=== PATIENT | female | born 1990 | race Caucasian/White ===

== ENCOUNTER → 2016-12-14 | Outpatient (CLI) | payer MEDICAID ==
--- NOTE | 2016-12-15 02:07 | CONS ---
DATE OF CONSULTATION: DATE OF : 1990 PRIMARY CARE PHYSICIAN: None PCP HISTORY: Ms. Thorne is a 26-year-old patient. She is para 2-0-0-2. She is 28 weeks . She is followed in our clinic, mainly by our nurse streetcar dispatcher. She presented today to the Labor and delivery, is complaining of dizziness and double vision and she denied any nausea or vomiting. She denied any headache and she denied any passing out or any seizure activity. The patient stated that she had similar attack in her 2nd and that is what attributed to that the baby is pressing on her back and her spinal cord and once the baby is moved, this was resolved. Today when she is admitted to Labor and delivery, her vital signs essentially normal, her blood pressure is normal, heart rate was category 1 and she has reactive NST. Her blood sugar is within normal limits. Her urinalysis is normal. During her stay in Labor and Delivery, she was able to move and go to the bathroom on her own without any problem. I examined the patient and her examination was normal grief and neurologic examination shows cranial nerves intact. that was essentially is normal that there is no loss of motor or sensory loss. The patient stated that she had some sort of a scratchy throat, but not really typical cold. This symptoms is either due to an inner ear infection or part of her problem, this could be evaluated. I gave the patient the option to stay in the hospital for observation tonight and we will evaluate her and Neurology consult in the morning or she can come to the office and we will evaluate her again in the office in the morning and we will seek other consult and possible any imaging if it is needed. The patient elected to go home and come to the office in the morning. YOLANDE / RASHIDA /[id number]
== END | disposition home or self-care (01) ==
LOC: MW.OBCHECK 15:58
PROVIDERS: ATTEND Obstetrics & Gynecology
DX: O99.89 Other specified diseases and conditions complicating pregnancy, childbirth and the puerperium (principal); R42 Dizziness and giddiness; Z3A.00 Weeks of gestation of pregnancy not specified
CPT/HCPCS: 81001; 82962

== ENCOUNTER → 2016-12-17 | Outpatient (CLI) | payer MEDICAID | LOC: MW.CHOBGYN 09:48 | PROVIDERS: ATTEND Obstetrics & Gynecology | DX: R42 Dizziness and giddiness (principal) | CPT/HCPCS: 36415; 84443; 85027 ==

== ENCOUNTER → 2017-01-29 | Outpatient (CLI) | payer MEDICAID | END | disposition home or self-care (01) | LOC: MW.CHOBGYN 09:37 | PROVIDERS: ATTEND Advanced Practice Midwife | DX: Z34.90 Encounter for supervision of normal pregnancy, unspecified, unspecified trimester (principal) | CPT/HCPCS: 87081 ==

== ENCOUNTER 2017-02-21 13:40 | Outpatient (CLI) | payer MEDICAID ==
--- NOTE | 2017-02-23 14:53 | US ---
EXAM DATE: 02/21/17 PATIENT'S AGE: 26 Patient: BALTAZAR PRIDE Facility: [place], [place] Site . Site : 1990 Study: US OB Pelvis [id number]/13/2017 3:26:55 PM Ordering Physician: Kimberlee Slaughter Final Report: INDICATION: Bleeding. Decreased movement. Gestational age of 39 weeks and 0 days by LMP. TECHNIQUE: Ultrasound OB pelvis. COMPARISON: October 07, 2016. FINDINGS: Sonographic imaging demonstrates a single living intrauterine gestation. Fetus demonstrates a regular cardiac rate of 147 beats per minute. Fetus has a cephalic orientation. Amniotic fluid volume appears normal with an HUSSEIN of 12.5 cm. Scores: movement = 2/2 tone = 2/2 HUSSEIN = 2/2 breathing = 0/2 IMPRESSION: Single living intrauterine with a biophysical profile of 6/8. Dictated by Deniz Damon MD @ 02/21/2017 3:32:43 PM Dictated by: Deniz Damon MD @ 02/21/2017 15:33:06 (Electronic Signature) Report Signed by Proxy. CELINA
== END 2017-02-21 18:18 | disposition home or self-care (01) ==
LOC: MW.OB 13:40 → MW.OBCHECK 13:40
PROVIDERS: ATTEND Obstetrics & Gynecology
DX: O36.8130 Decreased fetal movements, third trimester, not applicable or unspecified (principal); Z3A.39 39 weeks gestation of pregnancy; O46.93 Antepartum hemorrhage, unspecified, third trimester
CPT/HCPCS: 59025; 76819; 76819-26

== ENCOUNTER 2017-02-22 11:57 | Outpatient (CLI) | payer MEDICAID | END 2017-02-22 13:13 | disposition home or self-care (01) | LOC: MW.OBCHECK 11:57 → MW.OB 12:03 → MW.OBCHECK 13:13 | PROVIDERS: ATTEND Obstetrics & Gynecology | DX: O47.03 False labor before 37 completed weeks of gestation, third trimester (principal); O46.8X3 Other antepartum hemorrhage, third trimester | CPT/HCPCS: 59025 ==

== ENCOUNTER 2017-02-24 07:41 | Outpatient (CLI) | payer MEDICAID ==
[2017-02-24] MEDS ORDERED: Calcium Carbonate 500 MG Tab.Chew PO ONE (10:20)
[2017-02-24] MEDS ORDERED: Acetaminophen 500 MG Tab PO ONE (10:20)
[2017-02-24 10:53] LABS: CHLORIDE,CL 109 mmol/L (98-110); SODIUM,NA 136 mmol/L (136-146)
--- NOTE | 2017-02-24 13:37 | US ---
EXAMINATION: Transabdominal obstetric ultrasound HISTORY: Pain and right lower quadrant COMPARISON: 02/21/2017 TECHNIQUE: Grayscale, color Doppler, and M-mode images obtained transabdominally. FINDINGS: There is a single live intrauterine in the cephalic position. heart rate i s 144 bpm. Placenta is anterior and appears intact. The amniotic fluid index is 9.2. No sonographic abnormalities identified within the right lower quadrant. The appendix is not identified. The right ovary appears normal in size and appearance. IMPRESSION: 1. Single live intrauterine . 2. The appendix is not visualized.
--- NOTE | 2017-02-24 18:06 | HP ---
DATE OF : 1990 PRIMARY CARE PHYSICIAN: None PCP CHIEF COMPLAINT: Right lower quadrant and back pain. HISTORY OF PRESENT ILLNESS: This is a 26-year-old female. She is G4, P2-0-1-2. She presents to Labor and Delivery at 38 and 6/7th weeks' gestation. EDC of 03/04/2017, G4, P2-0-1-2, with a complaint of 1-day history of pain. She has some irregular contractions. She reports that she has lost her mucus plug. She has had no vaginal bleeding. She reports positive movement. She has noted diarrhea over the last 48 hours as well as some nausea and at least one episode of emesis. She denies fever or chills. See OB flow sheet for past history. PHYSICAL EXAMINATION: VITAL SIGNS: Temperature is 97.6, blood pressure is 126/83, heart rate is 101, respiratory rate of 16. Initially, she reported a pain of 7/10. The pain has decreased over 5 hours of observation. heart tones have been in the 140s reactive with moderate variability, accelerations present, with no decelerations. She has had some irregular contractions initially every 4 to 6 minutes now just occasional irritability. LABORATORY STUDIES: Urinalysis appears contaminated. She denies symptoms of UTI, however, the urine will be sent for culture. She has a normal white blood cell count. Normal CMP. Ultrasound reveals normal amniotic fluid. Normal growth. No evidence of appendicitis on ultrasound. ASSESSMENT AND PLAN: A 38 and 6/7th weeks intrauterine with low back pain and prodromal symptoms of labor without any cervical change management facilitator a 5-hour time. I did offer her Vistaril to help with sleep. She declines and I reviewed labor precautions as well as kick counts. She has an upcoming appointment in 2 days with her primary provider. If her contractions become more frequent, every 5 to 7 minutes for an hour, or if she has spontaneous rupture of membranes, she has worsening pain, fever, or chills, she will return. LIZZY FIELD /[id number]
== END 2017-02-24 13:58 | disposition home or self-care (01) ==
LOC: MW.OB 07:41 → MW.OBCHECK 07:41
PROVIDERS: ATTEND Obstetrics & Gynecology
DX: O99.89 Other specified diseases and conditions complicating pregnancy, childbirth and the puerperium (principal); R10.31 Right lower quadrant pain; M54.9 Dorsalgia, unspecified
CPT/HCPCS: 36415; 59025; 76815; 80053; 81001; 85025; 87086; A9270

== ENCOUNTER 2017-02-24 21:10 | Outpatient (CLI) | payer MEDICAID ==
[2017-02-24] MEDS ORDERED: hydrOXYzine Pamoate 25 MG Cap PO ONE (23:18)
== END 2017-02-24 23:35 | disposition home or self-care (01) ==
LOC: MW.OBCHECK 21:10 → MW.OB 21:11 → MW.OBCHECK 23:35
PROVIDERS: ATTEND Obstetrics & Gynecology
DX: O26.893 Other specified pregnancy related conditions, third trimester (principal); R10.2 Pelvic and perineal pain; Z88.0 Allergy status to penicillin
CPT/HCPCS: 59025; A9270

== ENCOUNTER 2017-02-25 08:51 | Inpatient (IN) | payer MEDICAID ==
[2017-02-25] MEDS ORDERED: Lidocaine 1% 50 ML MDV INJECT PRN (10:20)
[2017-02-25] MEDS: Lactated Ringers 1,000 ML IV SCH ×3 (10:20→17:05)
[2017-02-25] MEDS ORDERED: Methylergonovine 0.2 MG/1 ML Amp IM PRN (10:20)
[2017-02-25] MEDS ORDERED: Nalbuphine 10 MG/1 ML Vial IVPUSH PRN (10:20)
[2017-02-25] MEDS ORDERED: Water For Irrigation,Sterile 1,000 ML Container IRR PRN (10:20)
[2017-02-25] MEDS ORDERED: Sodium Chloride 0.9% 10 ML Syringe FLUSH PRN (10:20)
[2017-02-25] MEDS ORDERED: Misoprostol 200 MCG Tab PO PRN (10:20)
[2017-02-25] MEDS ORDERED: Sodium Chloride 0.9% 2.5 ML Syringe FLUSH PRN (10:20)
[2017-02-25] MEDS ORDERED: Carboprost Tromethamine 250 MCG/1 ML Amp IM PRN (10:20)
[2017-02-25] MEDS ORDERED: Butorphanol 1 MG/ML SDV IVPUSH PRN (10:20)
[2017-02-25] MEDS ORDERED: Oxytocin/Lactated Ringers 30 UNIT/500 ML BAG IV SCH ×2 (10:30→13:30)
[2017-02-25] MEDS ORDERED: Oxytocin/Lactated Ringers 20 UNIT/1,000 ML BAG IV SCH (13:30)
[2017-02-25] MEDS ORDERED: Ropivacaine 0.2% 2 MG/ML 20 ML SDV ONE (16:01)
[2017-02-25] MEDS ORDERED: Ropivacaine HCl/PF 100 ML ONE (16:01)
[2017-02-25] MEDS ORDERED: fentaNYL 100 MCG/2 ML SDV ONE (16:01)
--- NOTE | 2017-02-25 16:32 | PCM.PREANE ---
Preanesthetic Assessment - Anesthesia/Transfusion/Family Hx Anesthesia History: Prior Anesthesia Without Reaction Family History of Anesthesia Reaction: No Transfusion History: No Prior Transfusion(s) - Review of Systems Other: Reports: None - Physical Assessment Height: 5 ft 4.17 in Weight: 84.6 kg ASA Class: 2 Mental Status: Alert & Oriented x3 Airway Class: Mallampati = 1 Dentition: Reports: Normal Dentition Thyro-Mental Finger Breadths: 3 Mouth Opening Finger Breadths: 3 ROM/Head Extension: Full - Lab Values: Laboratory Last Values WBC 10.40 K/uL (4.0-11.0) 02/25/17 10:36 RBC 4.54 M/uL (4.30-5.90) 02/25/17 10:36 Hgb 13.6 g/dL (12.0-16.0) 02/25/17 10:36 Hct 39.5 % (36.0-46.0) 02/25/17 10:36 MCV 87.0 fL (80.0-98.0) 02/25/17 10:36 MCH 30.0 pg (27.0-32.0) 02/25/17 10:36 MCHC 34.4 g/dL (31.0-37.0) 02/25/17 10:36 RDW Std Deviation 45.6 fl (28.0-62.0) 02/25/17 10:36 RDW Coeff of Maynor 15 % (11.0-15.0) 02/25/17 10:36 Plt Count 213 K/uL (150-400) 02/25/17 10:36 MPV 10.30 fL (7.40-12.00) 02/25/17 10:36 Nucleated RBC % 0.0 /100WBC 02/25/17 10:36 Nucleated RBCs # 0 K/uL 02/25/17 10:36 Blood Type A POSITIVE 02/25/17 10:36 Antibody Screen NEGATIVE 02/25/17 10:36 - Allergies Allergies/Adverse Reactions: Allergies Allergy/AdvReac Type Severity Reaction Status Date / Time Penicillins Allergy Airway Verified 10/07/16 19:11 Tightness - Blood Blood Available: Yes Product(s) Available: PRBC - Acknowledgements Anesthesia Type Planned: Epidural Pt an Appropriate Candidate for the Planned Anesthesia: Yes Alternatives and Risks of Anesthesia Discussed w Pt/Guardian: Yes Pt/Guardian Understands and Agrees with Anesthesia Plan: Yes PreAnesthesia Questionnaire HEENT History: Reports: None Cardiovascular History: Reports: None Respiratory History: Reports: None Gastrointestinal History: Reports: None Genitourinary History: Reports: None [employer]PER CH[employer] CARE History: Reports: Endometriosis, Musculoskeletal History: Reports: None Neurological History: Reports: None Psychiatric History: Reports: Anxiety Endocrine/Metabolic History: Reports: None Hematologic History: Reports: None Immunologic History: Reports: None Oncologic (Cancer) History: Reports: None Dermatologic History: Reports: None - Infectious Disease History Infectious Disease History: Reports: None - Past Surgical History Head Surgeries/Procedures: Reports: None HEENT Surgical History: Reports: Adenoidectomy, Tonsillectomy Respiratory Surgical History: Reports: None GI Surgical History: Reports: None Female Surgical History: Reports: None Neurological Surgical History: Reports: None Oncologic Surgical History: Reports: None Dermatological Surgical History: Reports: None - SUBSTANCE USE Smoking Status *Q: Former Smoker Tobacco Use Within Last Twelve Months: No Recreational Drug Use History: No - HOME MEDS Home Medications: Home Meds Nitrofurantoin Monohyd/M-Cryst [Macrobid 100 mg Capsule] 100 mg PO BID #20 capsule 10/07/16 [Rx] - CURRENT (IN HOUSE) MEDS Current Meds: Current Medications Butorphanol Tartrate (Stadol) 1 mg IVPUSH Q1H PRN PRN Reason: Pain Carboprost Tromethamine (Hemabate Ds) 250 mcg IM ASDIRECTED PRN PRN Reason: Post Hemorrhage Lactated Ringer's (Ringers, Lactated) 1,000 mls @ 150 mls/hr IV ASDIRECTED IVONNE Last Admin: 02/25/17 11:30 Dose: 150 mls/hr Oxytocin/Lactated Ringer's (Pitocin In Lr 30 Units/500 Ml) 30 unit in 500 mls @ 2 mls/hr IV TITRATE IVONNE; 2 MUNITS/MIN PRN Reason: Protocol Last Titration: 02/25/17 16:28 Dose: 12 munits/min, 12 mls/hr Lidocaine HCl (Xylocaine 1%) 50 ml INJECT .ONCE PRN PRN Reason: Laceration repair Methylergonovine Maleate (Methergine) 0.2 mg IM ASDIRECTED PRN PRN Reason: Post Hemorrhage Misoprostol (Cytotec) 200 mcg PO .ONCE PRN PRN Reason: Post Hemorrhage Sodium Chloride (Saline Flush) 10 ml FLUSH ASDIRECTED PRN PRN Reason: Keep Vein Open Sodium Chloride (Saline Flush) 2.5 ml FLUSH ASDIRECTED PRN PRN Reason: Keep Vein Open Sterile Water (Sterile Water For Irrigation) 1,000 ml IRR ASDIRECTED PRN PRN Reason: delivery Discontinued Medications Fentanyl (Sublimaze) Confirm Administered Dose 200 mcg .ROUTE .STK-MED ONE Stop: 02/25/17 16:02 Oxytocin/Lactated Ringer's (Pitocin In Lr 30 Units/500 Ml) 30 unit in 500 mls @ 999 mls/hr IV TITRATE IVONNE Stop: 02/25/17 11:01 Ropivacaine (Naropin 0.2%) Confirm Administered Dose 100 mls @ as directed .ROUTE .STK-MED ONE Stop: 02/25/17 16:02 Nalbuphine HCl (Nubain) 10 mg IVPUSH Q1H PRN PRN Reason: Pain (severe 7-10) Stop: 02/25/17 12:21 Ropivacaine (Naropin 0.2%) Confirm Administered Dose 20 ml .ROUTE .STK-MED ONE Stop: 02/25/17 16:02
[2017-02-25] MEDS ORDERED: Witch Hazel Medicated Pads 40/Jar TOP PRN (18:49)
[2017-02-25] MEDS ORDERED: Ibuprofen 400 MG Tab PO PRN (18:49)
[2017-02-25] MEDS ORDERED: Lanolin 100% Cream 7 GM Tube TOP PRN (18:49)
[2017-02-25] MEDS ORDERED: Benzocaine/Menthol 20%-0.5% Spray 78 GM Cannister TOP PRN (18:49)
[2017-02-25] MEDS ORDERED: Bisacodyl 10 MG Supp RECTAL PRN (18:49)
[2017-02-25] MEDS ORDERED: oxyCODONE 5 MG Tab PO PRN (18:49)
[2017-02-25] MEDS ORDERED: Docusate Sodium 100 MG Cap PO PRN (18:49)
[2017-02-25] MEDS ORDERED: Ibuprofen 800 MG Tab PO PRN (18:49)
[2017-02-25] MEDS ORDERED: Acetaminophen 500 MG Tab PO PRN ×2 (18:49)
--- NOTE | 2017-02-26 01:14 | OR ---
SURGEON: Hannah Mansfield MD DATE OF PROCEDURE: 02/25/2017 PREOPERATIVE DIAGNOSES: 1. Term at 39 weeks gestation. 2. Prolonged latent phase of labor. POSTOPERATIVE DIAGNOSES: 1. Term at 39 weeks gestation. 2. Prolonged latent phase of labor and delivered. PROCEDURE: Spontaneous vaginal delivery. ANESTHESIA: Epidural. ESTIMATED BLOOD LOSS: 100 mL. COMPLICATIONS: None. DISPOSITION: Mother and baby, stable in Labor and Delivery room, bonding. FINDINGS: Female infant, weight 3540 g, score 8 and 9 at 1 and 5 minutes respectively. Grossly normal placenta with three-vessel cord. Intact perineum. HISTORY: The patient is a 26-year-old, G4, P2, who has presented to L/D more than four times in the last 24 hours with complaints of irregular contractions, pelvic pain/pressure, and generally getting very uncomfortable and miserable due to prolonged latent phase of labor. She is currently 39 weeks and has had uncomplicated care thus far. GBS negative. She is a patient of Briseyda Mendoza, the mapping pilot of [facility] practice of covering that practice this week as Dr. Mohan is away on vacation. Within the last 24 hours, the patient has made minimal cervical change from 3 to 4 cm 60% effaced, station -3, but has increasingly become uncomfortable with her irregular contractions. She denies vaginal bleeding, leakage of fluid and reports active movement. Based on her history and the recurrent admissions, I reviewed expected management versus induction of labor at this gestation with her explaining the possible risks involved with induction of labor including, but not limited to, intolerance to induction, hyperstimulation, and possibly ending up with a section. The patient considered these options and opted to proceed with induction of labor. Induction of labor was commenced with oxytocin infusion as per protocol and within 4 hours, she had progressed to 5 cm. Spontaneous rupture of membranes occurred with clear amniotic fluid noted. Approximately 30 minutes to 45 minutes after the spontaneous rupture of membrane , she became fully dilated and commenced active pushing. She pushed quite well bringing the baby's head down to a +4 station and was set up for delivery in a modified dorsal lithotomy position cup. DESCRIPTION OF PROCEDURE: The patient had a spontaneous vaginal delivery of a live female infant in direct occipital anterior position, no nuchal cord with clear amniotic fluid Anterior and posterior shoulders and the rest of the baby were delivered without difficulty. The baby was vigorous and cried spontaneously at . The baby was delivered onto the maternal abdomen with the nursery nurse attending to the baby. Delayed cord clamping was performed and the cord was subsequently cut by the father of the baby. With delivery of the infant, oxytocin infusion was changed to titration for active management of third stage of labor. Cord blood and gas samples were obtained. Placenta was delivered by controlled cord traction appeared to be complete and intact. Examination of the perineum revealed no perineal lacerations. Uterine massage was performed. The uterus was found to be well contracted below the umbilicus. The patient tolerated the procedure well. Sponge, instrument, and needle counts were correct at the end of the delivery. ADUMVIV / MODL /[id number] MTDD
--- NOTE | 2017-02-26 07:09 | PCM48HPAN ---
Post Anesthesia Note - EVALUATION WITHIN 48HRS OF ANESTHETIC Vital Signs in Normal Range: Yes Patient Participated in Evaluation: Yes Respiratory Function Stable: Yes Airway Patent: Yes Cardiovascular Function Stable: Yes Hydration Status Stable: Yes Pain Control Satisfactory: Yes Nausea and Vomiting Control Satisfactory: Yes Mental Status Recovered: Yes
--- NOTE | 2017-02-26 07:39 | PCM.DCSUM1 ---
Discharge Summary - Hospital Course Free Text/Narrative:: Discharge home with . Follow up 6 weeks or sooner prn. - Discharge Data Discharge Date: 02/26/17 Discharge Disposition: Home, Self-Care 01 Condition: Good - Discharge Diagnosis/Problem(s) (1) Supervision of normal IUP (intrauterine ) in multigravida SNOMED Code(s): 761882445, 073551564, [id number] ICD Code: Z34.80 - ENCOUNTER FOR SUPRVSN OF NORMAL , UNSP TRIMESTER Status: Acute Priority: High Current Visit: Yes Qualifiers: Trimester: third trimester Qualified Code(s): Z34.83 - Encounter for supervision of other normal , third trimester (2) (normal spontaneous vaginal delivery) SNOMED Code(s): 55977553 ICD Code: O80 - ENCOUNTER FOR FULL-TERM UNCOMPLICATED DELIVERY Status: Acute Priority: Medium Current Visit: Yes - Patient Instructions Diet: Usual Diet as Tolerated Activity: As Tolerated, Rest and Relax Today Driving: Do Not Drive Showering/Bathing: May Shower Notify Provider of: Fever, Increased Pain, Drainage, Nausea and/or Vomiting Other/Special Instructions: Discharge home with . Follow up 6 weeks or sooner prn. - Discharge Plan Home Medications: Home Meds Nitrofurantoin Monohyd/M-Cryst [Macrobid 100 mg Capsule] 100 mg PO BID #20 capsule 10/07/16 [Rx] Referrals: [facility] [Outside] Briseyda Mendoza CNM [Primary Care Provider] - 04/02/17 1:30 pm - General Info Date of Service: 02/26/17 Functional Status: Reports: pain controlled, tolerating diet, ambulating, urinating - Review of Systems General: Reports: No Symptoms HEENT: Reports: no symptoms Pulmonary: Reports: no symptoms Cardiovascular: Reports: No Symptoms Gastrointestinal: Reports: No symptoms Genitourinary: Reports: no symptoms Musculoskeletal: Reports: no symptoms Skin: Reports: no symptoms Neurological: Reports: No Symptoms Psychiatric: Reports: no symptoms - Patient Data Vitals - Most Recent: Last Vital Signs Temp 37.0 C 02/26/17 04:21 Pulse 77 02/26/17 04:21 Resp 14 02/26/17 04:21 BP 116/58 L 02/26/17 04:21 Pulse Ox 99 02/26/17 04:21 Weight - Most Recent: 84.6 kg Lab Results - Last 24 hrs: Laboratory Results - last 24 hr 02/25/17 02/25/17 02/26/17 Range/Units 10:36 10:36 04:17 WBC 10.40 (4.0-11.0) K/uL RBC 4.54 (4.30-5.90) M/uL Hgb 13.6 12.5 (12.0-16.0) g/dL Hct 39.5 36.7 (36.0-46.0) % MCV 87.0 (80.0-98.0) fL MCH 30.0 (27.0-32.0) pg MCHC 34.4 (31.0-37.0) g/dL RDW Std Deviation 45.6 (28.0-62.0) fl RDW Coeff of Maynor 15 (11.0-15.0) % Plt Count 213 (150-400) K/uL MPV 10.30 (7.40-12.00) fL Nucleated RBC % 0.0 /100WBC Nucleated RBCs # 0 K/uL Blood Type A POSITIVE Antibody Screen NEGATIVE Med Orders - Current: Current Medications Acetaminophen (Tylenol Extra Strength) 500 mg PO Q4H PRN PRN Reason: Pain Acetaminophen (Tylenol Extra Strength) 1,000 mg PO Q4H PRN PRN Reason: Pain Benzocaine/Menthol (Dermoplast Pain Relief 20%-0.5% [place]) 78 gm TOP ASDIRECTED PRN PRN Reason: Perineal Comfort Measure Last Admin: 02/25/17 23:47 Dose: 1 canister Bisacodyl (Dulcolax) 10 mg RECTAL .ONCE PRN PRN Reason: Constipation Docusate Sodium (Colace) 100 mg PO BID PRN PRN Reason: Constipation Emollient Ointment (Lansinoh Hpa) 0 gm TOP ASDIRECTED PRN PRN Reason: Sore Nipples Last Admin: 02/25/17 23:46 Dose: 1 tube Ibuprofen (Motrin) 400 mg PO Q4H PRN PRN Reason: Pain Ibuprofen (Motrin) 800 mg PO Q6H PRN PRN Reason: Pain Last Admin: 02/25/17 23:45 Dose: 800 mg Oxycodone HCl (Oxycodone) 5 mg PO Q2H PRN PRN Reason: Pain Witch Mattie (Tucks) 1 pad TOP ASDIRECTED PRN PRN Reason: comfort care Last Admin: 02/25/17 23:46 Dose: 1 tub Discontinued Medications Butorphanol Tartrate (Stadol) 1 mg IVPUSH Q1H PRN PRN Reason: Pain Carboprost Tromethamine (Hemabate Ds) 250 mcg IM ASDIRECTED PRN PRN Reason: Post Hemorrhage Fentanyl (Sublimaze) Confirm Administered Dose 200 mcg .ROUTE .STK-MED ONE Stop: 02/25/17 16:02 Lactated Ringer's (Ringers, Lactated) 1,000 mls @ 150 mls/hr IV ASDIRECTED IVONNE Last Admin: 02/25/17 17:05 Dose: 150 mls/hr Oxytocin/Lactated Ringer's (Pitocin In Lr 30 Units/500 Ml) 30 unit in 500 mls @ 999 mls/hr IV TITRATE IVONNE Stop: 02/25/17 11:01 Oxytocin/Lactated Ringer's (Pitocin In Lr 30 Units/500 Ml) 30 unit in 500 mls @ 2 mls/hr IV TITRATE IVONNE; 2 MUNITS/MIN PRN Reason: Protocol Last Titration: 02/25/17 18:20 Dose: 999 mls/hr Ropivacaine (Naropin 0.2%) Confirm Administered Dose 100 mls @ as directed .ROUTE .STK-MED ONE Stop: 02/25/17 16:02 Lidocaine HCl (Xylocaine 1%) 50 ml INJECT .ONCE PRN PRN Reason: Laceration repair Methylergonovine Maleate (Methergine) 0.2 mg IM ASDIRECTED PRN PRN Reason: Post Hemorrhage Misoprostol (Cytotec) 200 mcg PO .ONCE PRN PRN Reason: Post Hemorrhage Nalbuphine HCl (Nubain) 10 mg IVPUSH Q1H PRN PRN Reason: Pain (severe 7-10) Stop: 02/25/17 12:21 Ropivacaine (Naropin 0.2%) Confirm Administered Dose 20 ml .ROUTE .STK-MED ONE Stop: 02/25/17 16:02 Sodium Chloride (Saline Flush) 10 ml FLUSH ASDIRECTED PRN PRN Reason: Keep Vein Open Sodium Chloride (Saline Flush) 2.5 ml FLUSH ASDIRECTED PRN PRN Reason: Keep Vein Open Sterile Water (Sterile Water For Irrigation) 1,000 ml IRR ASDIRECTED PRN PRN Reason: delivery - Exam General: Reports: alert, oriented, cooperative, no acute distress Lungs: Reports: Normal respiratory effort Abdomen: Reports: soft, no tenderness, no distension (Female) Exam: Vaginal Bleeding Rectal (Female) Exam: Deferred Back Exam: Reports: Full Range of Motion Extremities: Reports: no edema, normal pulses Skin: Reports: warm, dry, intact Wound/Incisions: Reports: healing well Neurological: Reports: no new focal deficit Psy/Mental Status: Reports: alert, normal affect, normal mood *Q Meaningful Use (DIS) - VTE *Q VTE Criteria *Q: - Stroke *Q Stroke Criteria *Q: - AMI *Q AMI Criteria *Q:
--- NOTE | 2017-02-26 09:21 | PCM.PNPP ---
- General Info Date of Service: 02/26/17 Functional Status: Reports: pain controlled, tolerating diet, ambulating, urinating - Review of Systems General: Denies: Fever, Weakness Cardiovascular: Denies: Palpitations, Lightheadedness Gastrointestinal: Denies: Abdominal pain Genitourinary: Denies: flank pain Psychiatric: Reports: no symptoms - General Info Date of Service: 02/26/17 - Patient Data Vital Signs - most recent: Last Vital Signs Temp 37.0 C 02/26/17 04:21 Pulse 77 02/26/17 04:21 Resp 14 02/26/17 04:21 BP 116/58 L 02/26/17 04:21 Pulse Ox 99 02/26/17 04:21 Weight - most recent: 84.6 kg Lab Results - last 24 hrs: Laboratory Results - last 24 hr 02/25/17 02/25/17 02/26/17 Range/Units 10:36 10:36 04:17 WBC 10.40 (4.0-11.0) K/uL RBC 4.54 (4.30-5.90) M/uL Hgb 13.6 12.5 (12.0-16.0) g/dL Hct 39.5 36.7 (36.0-46.0) % MCV 87.0 (80.0-98.0) fL MCH 30.0 (27.0-32.0) pg MCHC 34.4 (31.0-37.0) g/dL RDW Std Deviation 45.6 (28.0-62.0) fl RDW Coeff of Maynor 15 (11.0-15.0) % Plt Count 213 (150-400) K/uL MPV 10.30 (7.40-12.00) fL Nucleated RBC % 0.0 /100WBC Nucleated RBCs # 0 K/uL Blood Type A POSITIVE Antibody Screen NEGATIVE Med Orders - Current: Current Medications Acetaminophen (Tylenol Extra Strength) 500 mg PO Q4H PRN PRN Reason: Pain Acetaminophen (Tylenol Extra Strength) 1,000 mg PO Q4H PRN PRN Reason: Pain Benzocaine/Menthol (Dermoplast Pain Relief 20%-0.5% [place]) 78 gm TOP ASDIRECTED PRN PRN Reason: Perineal Comfort Measure Last Admin: 02/25/17 23:47 Dose: 1 canister Bisacodyl (Dulcolax) 10 mg RECTAL .ONCE PRN PRN Reason: Constipation Docusate Sodium (Colace) 100 mg PO BID PRN PRN Reason: Constipation Emollient Ointment (Lansinoh Hpa) 0 gm TOP ASDIRECTED PRN PRN Reason: Sore Nipples Last Admin: 02/25/17 23:46 Dose: 1 tube Ibuprofen (Motrin) 400 mg PO Q4H PRN PRN Reason: Pain Ibuprofen (Motrin) 800 mg PO Q6H PRN PRN Reason: Pain Last Admin: 02/25/17 23:45 Dose: 800 mg Oxycodone HCl (Oxycodone) 5 mg PO Q2H PRN PRN Reason: Pain Witch Mattie (Tucks) 1 pad TOP ASDIRECTED PRN PRN Reason: comfort care Last Admin: 02/25/17 23:46 Dose: 1 tub Discontinued Medications Butorphanol Tartrate (Stadol) 1 mg IVPUSH Q1H PRN PRN Reason: Pain Carboprost Tromethamine (Hemabate Ds) 250 mcg IM ASDIRECTED PRN PRN Reason: Post Hemorrhage Fentanyl (Sublimaze) Confirm Administered Dose 200 mcg .ROUTE .STK-MED ONE Stop: 02/25/17 16:02 Lactated Ringer's (Ringers, Lactated) 1,000 mls @ 150 mls/hr IV ASDIRECTED IVONNE Last Admin: 02/25/17 17:05 Dose: 150 mls/hr Oxytocin/Lactated Ringer's (Pitocin In Lr 30 Units/500 Ml) 30 unit in 500 mls @ 999 mls/hr IV TITRATE IVONNE Stop: 02/25/17 11:01 Oxytocin/Lactated Ringer's (Pitocin In Lr 30 Units/500 Ml) 30 unit in 500 mls @ 2 mls/hr IV TITRATE IVONNE; 2 MUNITS/MIN PRN Reason: Protocol Last Titration: 02/25/17 18:20 Dose: 999 mls/hr Ropivacaine (Naropin 0.2%) Confirm Administered Dose 100 mls @ as directed .ROUTE .STK-MED ONE Stop: 02/25/17 16:02 Lidocaine HCl (Xylocaine 1%) 50 ml INJECT .ONCE PRN PRN Reason: Laceration repair Methylergonovine Maleate (Methergine) 0.2 mg IM ASDIRECTED PRN PRN Reason: Post Hemorrhage Misoprostol (Cytotec) 200 mcg PO .ONCE PRN PRN Reason: Post Hemorrhage Nalbuphine HCl (Nubain) 10 mg IVPUSH Q1H PRN PRN Reason: Pain (severe 7-10) Stop: 02/25/17 12:21 Ropivacaine (Naropin 0.2%) Confirm Administered Dose 20 ml .ROUTE .STK-MED ONE Stop: 02/25/17 16:02 Sodium Chloride (Saline Flush) 10 ml FLUSH ASDIRECTED PRN PRN Reason: Keep Vein Open Sodium Chloride (Saline Flush) 2.5 ml FLUSH ASDIRECTED PRN PRN Reason: Keep Vein Open Sterile Water (Sterile Water For Irrigation) 1,000 ml IRR ASDIRECTED PRN PRN Reason: delivery - Interaction Support Person: Mother, Significant Other - Recovery Exam Fundal Tone: Firm Fundal Level: At Umbilicus Fundal Placement: Midline Lochia Amount: Scant Lochia Color: Rubra/Red Perineum Description: Intact, Minimal Bruising/Swelling Episiotomy/Laceration: None Bladder Status: Voiding Urinary Elimination: Voided - Exam General: alert, oriented Lungs: Normal respiratory effort Cardiovascular: Regular Rate, Regular Rhythm Abdomen: bowel sounds present, soft. No: CVA tenderness Extremities: no calf tenderness Psy/Mental Status: alert, normal affect - Problem List & Annotations (1) (normal spontaneous vaginal delivery) SNOMED Code(s): 95015529 Code(s): O80 - ENCOUNTER FOR FULL-TERM UNCOMPLICATED DELIVERY Status: Acute Priority: Medium Current Visit: Yes - Problem List Review Problem List Initiated/Reviewed/Updated: Yes - Assessment Assessment:: PPD 1 status post - Plan Plan:: Patient seen and examined, agree with discharge to homel. Follow up at 6 weeks. Infection and bleeding warnings.
[2017-02-26 20:19] VITALS: BP 136/74
== END 2017-02-26 21:35 | disposition home or self-care (01) | DRG 775 ==
LOC: MW.OB 08:51 → MW.OBCHECK 08:51 → MW.OB 10:21 → MW.OBCHECK 11:29 → OBSVTOIN 18:19 → MW.OB 22:13
PROVIDERS: ADMIT Obstetrics & Gynecology; ATTEND Obstetrics & Gynecology
PROC: 10E0XZZ Delivery of Products of Conception, External Approach (ICD-10-PCS; principal; 2017-02-25)
PROC: 3E033VJ Introduction of Other Hormone into Peripheral Vein, Percutaneous Approach (ICD-10-PCS; 2017-02-25)
DX: O63.9 Long labor, unspecified (principal); Z3A.39 39 weeks gestation of pregnancy; Z37.0 Single live birth
CPT/HCPCS: 01967; 36415; 59025; 85014; 85018; 85027; 86850; 86900; 86901; A9270-GY; J2795; J3010; J7120

== ENCOUNTER 2018-06-11 09:23 | Emergency (ER) | payer SELFPAY ==
--- NOTE | 2018-06-11 09:58 | EDM.PDOC ---
ED HPI GENERAL MEDICAL PROBLEM - General Chief Complaint: Upper Extremity Injury/Pain Stated Complaint: PAIN IN SHOULDER Time Seen by Provider: 06/11/18 09:42 - History of Present Illness INITIAL COMMENTS - FREE TEXT/NARRATIVE: HISTORY AND PHYSICAL: History of present illness: The patient is a 27-year-old female with a history of bursitis in her shoulders and presents with complaints of pain at her left scapular muscle area that's been ongoing for 2 days. She has seen our orthopedic clinic last year for the bursitis and says that this pain is very different as it is more posterior. It is only on the left side it is not in the midline upper back. The patient is just finishing a viral illness that involved a cough and diarrhea she says she does not feel it is from that. She has no shortness of breath no anterior chest pain and no neurosensory changes or weakness in her left upper extremity. 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 She says that when she moves the arm in certain ways she gets the pain. She says it is localized to the scapular area and she has no rib pain. She had no direct trauma to these areas. She is using [id number] Tylenol and ibuprofen and last took 600 mg of ibuprofen an hour and a half ago and it is not helping. She denies any other systemic complaints Review of systems: As per history of present illness and below otherwise all systems reviewed and negative. Past medical history: As per history of present illness and as reviewed below otherwise noncontributory. Surgical history: As per history of present illness and as reviewed below otherwise noncontributory. Social history: No reported history of drug or alcohol abuse. Family history: As per history of present illness and as reviewed below otherwise noncontributory. Physical exam: General: Well-developed well-nourished female who is nontoxic and a loose cough is heard on my evaluation. She has not breathless and vital signs were noted by me. She is noted to be uncomfortable with certain movements of her left upper extremity. HEENT: Atraumatic, normocephalic, negative for conjunctival pallor or scleral icterus, mucous membranes moist, throat clear, neck supple, nontender, trachea midline. Lungs: Clear to auscultation, breath sounds equal bilaterally, chest nontender. Heart: S1S2, regular in rhythm no overt murmurs Abdomen: Soft, nondistended, nontender. NABS Pelvis: Deferred Genitourinary: Deferred. Rectal: Deferred. Extremities: Atraumatic, negative for cords or calf pain. Neurovascular unremarkable. At the left anterior shoulder there is no discrete trigger point tenderness and no palpable bony deformities at the clavicle or proximal humerus. There is no tenderness with palpation of the musculature here. At the left scapula there is no bony tenderness but with the surrounding musculature more medially there is discomfort with palpation. The patient can range of motion passively and actively but has most discomfort with full engagement of rotator cuff and full extension forward stretch on the rhomboids. Neurosensory is intact. There is no humeral elbow forearm wrist or hand tenderness defects or deformities and pulses are intact as is strength in the distal hand. Neuro: Awake, alert, oriented. Cranial nerves II through XII unremarkable. Cerebellum unremarkable. Motor and sensory unremarkable throughout. Exam nonfocal. Diagnostics: X-ray of left scapula and one view chest x-ray Therapeutics: Patient took Motrin prior to arrival and drove herself. I offered her something stronger for pain if she could get a ride. She is aware of testing results and care plan for home including a muscle relaxer and a pain medication for sleep times. Advised her to continue with the ibuprofen 600 mg every 6 hours and apply ice and schedule follow-up in our orthopedics clinic Impression: Left posterior shoulder pain/musculoskeletal pain strain Definitive disposition and diagnosis as appropriate pending reevaluation and review of above. Left Shoulder Pain Score (Numeric/FACES): 9 - Related Data Allergies Allergy/AdvReac Type Severity Reaction Status Date / Time Penicillins Allergy Airway Verified 10/07/16 19:11 Tightness Home Meds: Home Meds . 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: Reports: Endometriosis, Musculoskeletal History: Reports: None Neurological History: Reports: None Psychiatric History: Reports: Anxiety Endocrine/Metabolic History: Reports: None Hematologic History: Reports: None Immunologic History: Reports: None Oncologic (Cancer) History: Reports: None Dermatologic History: Reports: None - Infectious Disease History Infectious Disease History: Reports: Chicken Pox - Past Surgical History Head Surgeries/Procedures: Reports: None HEENT Surgical History: Reports: Adenoidectomy, Tonsillectomy Respiratory Surgical History: Reports: None GI Surgical History: Reports: None Female Surgical History: Reports: None Neurological Surgical History: Reports: None Oncologic Surgical History: Reports: None Dermatological Surgical History: Reports: None Social & Family History - Family History Family Medical History: Noncontributory - Tobacco Use Smoking Status *Q: Current Every Day Smoker Years of Tobacco use: 10 Packs/Tins Daily: 0.5 - Caffeine Use Caffeine Use: Reports: Coffee, Energy Drinks - Recreational Drug Use Recreational Drug Use: No Review of Systems - Review of Systems Review Of Systems: ROS reveals no pertinent complaints other than HPI. ED EXAM, GENERAL - Physical Exam Exam: See Below (See dictation) Course - Vital Signs Last Recorded V/S: Last Vital Signs Temp 36.3 C 06/11/18 09:36 Pulse 106 H 06/11/18 09:36 Resp 18 06/11/18 09:36 BP 137/76 06/11/18 09:36 Pulse Ox 95 06/11/18 09:36 Departure - Departure Time of Disposition: 10:49 Disposition: Home, Self-Care 01 Condition: Good Clinical Impression: Pain of left scapula, Musculoskeletal pain of left upper extremity - Discharge Information Referrals: PCP,None [Primary Care Provider] - Forms: ED Department Discharge Additional Instructions: The following information is given to patients seen in the emergency department who are being discharged to home. This information is to outline your options for follow-up care. We provide all patients seen in our emergency department with a follow-up referral. The need for follow-up, as well as the timing and circumstances, are variable depending upon the specifics of your emergency department visit. If you don't have a primary care physician on staff, we will provide you with a referral. We always advise you to contact your personal physician following an emergency department visit to inform them of the circumstance of the visit and for follow-up with them and/or the need for any referrals to a consulting specialist. The emergency department will also refer you to a specialist when appropriate. This referral assures that you have the opportunity for followup care with a specialist. All of these measure are taken in an effort to provide you with optimal care, which includes your followup. Under all circumstances we always encourage you to contact your private physician who remains a resource for coordinating your care. When calling for followup care, please make the office aware that this follow-up is from your recent emergency room visit. If for any reason you are refused follow-up, please contact the [facility] emergency department at and ask to speak to the emergency department charge nurse. [facility]--Orthopedic clinic Professional [address] [id number] Continue to use ibuprofen 600 mg every 6 hours and add new medications as prescribed. Please call and schedule a follow-up appointment in the orthopedics clinic for further care and evaluation next week. Return to ER as needed and as discussed. Apply ice to area alternating with heat and try to stretch and open up the area using the muscle relaxers beforehand. The pain will slowly improve over the next few days but please seek reevaluation in the clinic
--- NOTE | 2018-06-11 10:38 | CR ---
EXAMINATION: PA chest radiograph. HISTORY: Shortness of breath. FINDINGS: The trachea is midline. The cardiomediastinal silhouette is within normal limits. No pulmonary infilt rates, effusions or pneumothorax. Osseous structures appear unremarkable. IMPRESSION: No acute cardiopulmonary process.
--- NOTE | 2018-06-11 10:39 | CR ---
EXAMINATION: Left scapula HISTORY: Pain COMPARISON: Shoulder dated 05/04/2017 TECHNIQUE: 2 views FINDINGS/IMPRESSION: There is no acute osseous abnormality, dislocation, or fracture. Bone mineraliza tion and visualized joint spaces appear intact.
[2018-06-11 11:07] VITALS: BP 128/71
== END 2018-06-11 11:07 | disposition home or self-care (01) ==
LOC: MW.ED 09:23
DX: S46.912A Strain of unspecified muscle, fascia and tendon at shoulder and upper arm level, left arm, initial encounter (principal); Z88.0 Allergy status to penicillin; F17.210 Nicotine dependence, cigarettes, uncomplicated; X58.XXXA Exposure to other specified factors, initial encounter
CPT/HCPCS: 71045; 71045-26; 73010-26-LT; 73010-LT; 99283

== ENCOUNTER 2018-07-13 12:05 | Emergency (ER) | payer MEDICAID ==
[2018-07-13 12:20] VITALS: BP 138/93
--- NOTE | 2018-07-13 12:24 | EDM.PDOC ---
ED HPI GENERAL MEDICAL PROBLEM - General Chief Complaint: Chest Pain Stated Complaint: CHEST PAIN Time Seen by Provider: 07/13/18 12:07 Source of Information: Reports: Patient History Limitations: Reports: No Limitations - History of Present Illness INITIAL COMMENTS - FREE TEXT/NARRATIVE: HISTORY AND PHYSICAL: History of present illness: Patient is a 27-year-old female who presents to the emergency room today with complaints of neck pain that wraps to her left shoulder and into her left/mid sternal chest. She states that this has been ongoing for the past 4 days. She does have some relief when laying flat/at rest. She also has had some loose stools, unsure if this is related. She is a daily smoker. Denies any fever, chills, shortness of breath, cough. Denies any abdominal pain , nausea, vomiting, constipation or dysuria. Review of systems: As per history of present illness and below otherwise all systems reviewed and negative. Past medical history: As per history of present illness and as reviewed below otherwise noncontributory. Surgical history: As per history of present illness and as reviewed below otherwise noncontributory. Social history: No reported history of drug or alcohol abuse. Family history: As per history of present illness and as reviewed below otherwise noncontributory. Physical exam: General: Well-developed and well-nourished 27-year-old female. Alert and oriented. Nontoxic appearing and in no acute distress. HEENT: Atraumatic, normocephalic, pupils equal and reactive bilaterally, negative for conjunctival pallor or scleral icterus, mucous membranes moist, throat clear, neck supple, nontender, trachea midline. No drooling or trismus noted. No meningeal signs Lungs: Clear to auscultation, breath sounds equal bilaterally, chest nontender. Heart: S1S2, regular rate and rhythm without overt murmur Abdomen: Soft, nondistended, nontender. Negative for masses or hepatosplenomegaly. Negative for costovertebral tenderness. Pelvis: Stable nontender. Genitourinary: Deferred. Rectal: Deferred. Skin: Intact, warm, dry. No lesions or rashes noted. Extremities: Atraumatic, negative for cords or calf pain. Neurovascular unremarkable. Neuro: Awake, alert, oriented. Cranial nerves II through XII unremarkable. Cerebellum unremarkable. Motor and sensory unremarkable throughout. Exam nonfocal. Notes: EKG shows normal sinus rhythm with a rate of 86. Chest x-ray is unremarkable. Lab work is unremarkable. Vital signs are stable. After further talking with the patient and sharing her lab results with her, she states that the pain does feel similar to a muscle spasm/strain. She states she has had some left shoulder pain and neck discomfort since May which seems to be aggravated when caring around her child. We discussed using Flexeril diclofenac for her symptoms. I encouraged her to follow up with her primary care provider which she is agreeable. Eyes any further questions or concerns. Diagnostics: CBC, CMP, EKG, chest x-ray Therapeutics: Declines Toradol IM Prescription: Flexeril (#15) Diclofenac (#20) Impression: Muscle Strain, Neck Nonspecific Chest Pain Plan: 1. Please stop smoking. 2. Take your medications as directed. Gentle heat and stretching as directed. 3. Follow-up with your primary care provider in the next 1-2 days. Return to the ED as needed and as discussed. Definitive disposition and diagnosis as appropriate pending reevaluation and review of above. 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: Reports: Endometriosis, Musculoskeletal History: Reports: None Neurological History: Reports: None Psychiatric History: Reports: Anxiety Endocrine/Metabolic History: Reports: None Hematologic History: Reports: None Immunologic History: Reports: None Oncologic (Cancer) History: Reports: None Dermatologic History: Reports: None - Infectious Disease History Infectious Disease History: Reports: Chicken Pox - Past Surgical History Head Surgeries/Procedures: Reports: None HEENT Surgical History: Reports: Adenoidectomy, Tonsillectomy Respiratory Surgical History: Reports: None GI Surgical History: Reports: None Female Surgical History: Reports: None, Other (See Below) Other Female Surgeries/Procedures: Surgery for Endometriosis Neurological Surgical History: Reports: None Oncologic Surgical History: Reports: None Dermatological Surgical History: Reports: None Social & Family History - Family History Family Medical History: Noncontributory - Tobacco Use Smoking Status *Q: Current Every Day Smoker Years of Tobacco use: 10 Packs/Tins Daily: 1 - Caffeine Use Caffeine Use: Reports: Coffee, Energy Drinks - Recreational Drug Use Recreational Drug Use: No ED ROS GENERAL - Review of Systems Review Of Systems: ROS reveals no pertinent complaints other than HPI. ED EXAM, GENERAL - Physical Exam Exam: See Below (See dictation) Course - Vital Signs Last Recorded V/S: Last Vital Signs Temp 98.4 F 07/13/18 12:18 Pulse 98 07/13/18 12:18 Resp 16 07/13/18 12:18 BP 138/93 H 07/13/18 12:18 Pulse Ox 98 07/13/18 12:18 - Orders/Labs/Meds Orders: Active Orders 24 hr Category Date Time Status EKG Documentation Completion [RC] STAT Care 07/13/18 12:07 Active Labs: Laboratory Tests 07/13/18 07/13/18 Range/Units 12:49 12:49 WBC 8.20 (4.0-11.0) K/uL RBC 5.13 (4.30-5.90) M/uL Hgb 15.9 (12.0-16.0) g/dL Hct 45.5 (36.0-46.0) % MCV 88.7 (80.0-98.0) fL MCH 31.0 (27.0-32.0) pg MCHC 34.9 (31.0-37.0) g/dL RDW Std Deviation 42.2 (28.0-62.0) fl RDW Coeff of Maynor 13 (11.0-15.0) % Plt Count 276 (150-400) K/uL MPV 9.90 (7.40-12.00) fL Neut % (Auto) 64.3 (48.0-80.0) % Lymph % (Auto) 25.9 (16.0-40.0) % [place] % (Auto) 7.6 (0.0-15.0) % Eos % (Auto) 2.1 (0.0-7.0) % Baso % (Auto) 0.1 (0.0-1.5) % Neut # (Auto) 5.3 (1.4-5.7) K/uL Lymph # (Auto) 2.1 (0.6-2.4) K/uL [place] # (Auto) 0.6 (0.0-0.8) K/uL Eos # (Auto) 0.2 (0.0-0.7) K/uL Baso # (Auto) 0.0 (0.0-0.1) K/uL Nucleated RBC % 0.0 /100WBC Nucleated RBCs # 0 K/uL Sodium 139 (136-145) mmol/L Potassium 4.0 (3.5-5.1) mmol/L Chloride 105 (98-107) mmol/L Carbon Dioxide 28.0 (21.0-32.0) mmol/L BUN 12 (7.0-18.0) mg/dL Creatinine 0.7 (0.6-1.0) mg/dL Est Cr Clr Drug Dosing 104.24 mL/min Estimated GFR (MDRD) > 60.0 ml/min Glucose 98 (74-106) mg/dL Calcium 9.2 (8.5-10.1) mg/dL Total Bilirubin 0.9 (0.2-1.0) mg/dL AST 11 L (15-37) IU/L ALT 16 (14-63) IU/L Alkaline Phosphatase 29 L (46-116) U/L Total Protein 7.3 (6.4-8.2) g/dL Albumin 4.0 (3.4-5.0) g/dL Globulin 3.3 (2.0-3.5) g/dL Albumin/Globulin Ratio 1.2 L (1.3-2.8) Departure - Departure Time of Disposition: 13:47 Disposition: Home, Self-Care 01 Clinical Impression: Nonspecific chest pain Neck muscle strain Qualifiers: Encounter type: initial encounter Qualified Code(s): S16.1XXA - Strain of muscle, fascia and tendon at neck level, initial encounter Prescriptions: Cyclobenzaprine [Flexeril] 10 mg PO TID PRN #15 tab PRN Reason: Pain Diclofenac Sodium [Voltaren] 75 mg PO BIDMEALS PRN #20 tab.cr PRN Reason: Pain Instructions: Muscle Strain, [id number] Referrals: Briseyda Mendoza CNM [Primary Care Provider] - Forms: ED Department Discharge Additional Instructions: The following information is given to patients seen in the emergency department who are being discharged to home. This information is to outline your options for follow-up care. We provide all patients seen in our emergency department with a follow-up referral. The need for follow-up, as well as the timing and circumstances, are variable depending upon the specifics of your emergency department visit. If you don't have a primary care physician on staff, we will provide you with a referral. We always advise you to contact your personal physician following an emergency department visit to inform them of the circumstance of the visit and for follow-up with them and/or the need for any referrals to a consulting specialist. The emergency department will also refer you to a specialist when appropriate. This referral assures that you have the opportunity for follow-up care with a specialist. All of these measure are taken in an effort to provide you with optimal care, which includes your follow-up. Under all circumstances we always encourage you to contact your private physician who remains a resource for coordinating your care. When calling for follow-up care, please make the office aware that this follow-up is from your recent emergency room visit. If for any reason you are refused follow-up, please contact the [facility] Emergency Department at and asked to speak to the emergency department charge nurse. [facility] [address] [place] [id number] 1. Please stop smoking. 2. Take your medications as directed. Gentle heat and stretching as directed. 3. Follow-up with your primary care provider in the next 1-2 days. Return to the ED as needed and as discussed. - My Orders Last 24 Hours: My Active Orders 07/13/18 12:07 EKG Documentation Completion [RC] STAT - Assessment/Plan Last 24 Hours: My Active Orders 07/13/18 12:07 EKG Documentation Completion [RC] STAT
[2018-07-13 13:23] LABS: CHLORIDE,CL 105 mmol/L (98-107); SODIUM,NA 139 mmol/L (136-145)
== END 2018-07-13 14:00 | disposition home or self-care (01) ==
LOC: MW.ED 12:05
DX: S16.1XXA Strain of muscle, fascia and tendon at neck level, initial encounter (principal); M25.512 Pain in left shoulder; R07.9 Chest pain, unspecified; F17.210 Nicotine dependence, cigarettes, uncomplicated; Z88.0 Allergy status to penicillin; X58.XXXA Exposure to other specified factors, initial encounter
CPT/HCPCS: 36415; 71045; 71045-26; 80053; 85025; 93005; 99285-25

== ENCOUNTER 2018-11-30 09:48 | Emergency (ER) | payer SELFPAY ==
[2018-11-30 10:08] VITALS: BP 135/80
[2018-11-30] MEDS ORDERED: Sodium Chloride 0.9% 1,000 ML IV ONE (10:19)
[2018-11-30] MEDS ORDERED: Ondansetron 4 MG/2 ML SDV IVPUSH ONE (10:20)
[2018-11-30] MEDS ORDERED: Ondansetron 4 MG Tab.DIS PO ONE (10:48)
[2018-11-30] MEDS ORDERED: Ondansetron 4 MG Tab.DIS ONE (10:49)
--- NOTE | 2018-11-30 10:49 | EDM.PDOC ---
ED HPI GENERAL MEDICAL PROBLEM - General Chief Complaint: ENT Problem Stated Complaint: SORE THROAT Time Seen by Provider: 11/30/18 10:11 Source of Information: Reports: Patient History Limitations: Reports: No Limitations - History of Present Illness INITIAL COMMENTS - FREE TEXT/NARRATIVE: Presents to the emergency room reporting a 48 hour history of body aches, sore throat, fever up to 103, dry heaves, diarrhea. She states that her diarrhea started out as gravy, now it's watery. She did not have a flu shot. She is on the Mirena IUD for control. Otherwise healthy without chronic medical problems. No abdominal pain or dysuria, reports minor cough. Generalized Pain Score (Numeric/FACES): 8 - Related Data Allergies Allergy/AdvReac Type Severity Reaction Status Date / Time Penicillins Allergy Airway Verified 11/30/18 10:07 Tightness Home Meds: Home Meds . 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: Reports: Endometriosis, Musculoskeletal History: Reports: None Neurological History: Reports: None Psychiatric History: Reports: Anxiety Endocrine/Metabolic History: Reports: None Hematologic History: Reports: None Immunologic History: Reports: None Oncologic (Cancer) History: Reports: None Dermatologic History: Reports: None - Infectious Disease History Infectious Disease History: Reports: Chicken Pox - Past Surgical History Head Surgeries/Procedures: Reports: None HEENT Surgical History: Reports: Adenoidectomy, Tonsillectomy Respiratory Surgical History: Reports: None GI Surgical History: Reports: None Female Surgical History: Reports: None, Other (See Below) Other Female Surgeries/Procedures: Surgery for Endometriosis Neurological Surgical History: Reports: None Oncologic Surgical History: Reports: None Dermatological Surgical History: Reports: None Social & Family History - Family History Family Medical History: Noncontributory - Tobacco Use Smoking Status *Q: Current Every Day Smoker Years of Tobacco use: 10 Packs/Tins Daily: 0.5 - Caffeine Use Caffeine Use: Reports: Coffee, Energy Drinks - Recreational Drug Use Recreational Drug Use: No ED ROS GENERAL - Review of Systems Review Of Systems: ROS reveals no pertinent complaints other than HPI. ED EXAM, GI/ABD - Physical Exam Exam: See Below Exam Limited By: No Limitations General Appearance: Alert, No Apparent Distress Ears: Normal External Exam, Normal TMs Nose: Normal Inspection Throat/Mouth: Normal Inspection Head: Atraumatic, Normocephalic Neck: Normal Inspection Respiratory/Chest: No Respiratory Distress, Lungs Clear, Normal Breath Sounds Cardiovascular: Normal Peripheral Pulses, Regular Rate, Rhythm, No Murmur GI/Abdominal Exam: Normal Bowel Sounds, Soft, Non-Tender (Diffuse mild tenderness), No Distention Neurological: Alert, Oriented Psychiatric: Normal Affect, Normal Mood Skin Exam: Warm, Dry, Intact, Normal Color, No Rash Lymphatic: No Adenopathy Course - Vital Signs Last Recorded V/S: Last Vital Signs Temp 36.2 C 11/30/18 10:04 Pulse 70 11/30/18 10:04 Resp 18 11/30/18 10:04 BP 135/80 11/30/18 10:04 Pulse Ox 98 11/30/18 10:04 - Orders/Labs/Meds Orders: Active Orders 24 hr Category Date Time Status CULTURE STREP A CONFIRMATION [] Stat Lab 11/30/18 10:30 Results STREP SCRN A RAPID W CULT CONF [RM] Stat Lab 11/30/18 10:39 Ordered Labs: Laboratory Tests 11/30/18 11/30/18 11/30/18 Range/Units 10:33 10:33 10:55 WBC 8.99 (4.0-11.0) K/uL RBC 5.16 (4.30-5.90) M/uL Hgb 16.0 (12.0-16.0) g/dL Hct 45.3 (36.0-46.0) % MCV 87.8 (80.0-98.0) fL MCH 31.0 (27.0-32.0) pg MCHC 35.3 (31.0-37.0) g/dL RDW Std Deviation 40.1 (28.0-62.0) fl RDW Coeff of [place]nor 13 (11.0-15.0) % Plt Count 265 (150-400) K/uL MPV 9.90 (7.40-12.00) fL Neut % (Auto) 65.2 (48.0-80.0) % Lymph % (Auto) 23.6 (16.0-40.0) % [place] % (Auto) 8.8 (0.0-15.0) % Eos % (Auto) 2.3 (0.0-7.0) % Baso % (Auto) 0.1 (0.0-1.5) % Neut # (Auto) 5.9 H (1.4-5.7) K/uL Lymph # (Auto) 2.1 (0.6-2.4) K/uL [place] # (Auto) 0.8 (0.0-0.8) K/uL Eos # (Auto) 0.2 (0.0-0.7) K/uL Baso # (Auto) 0.0 (0.0-0.1) K/uL Nucleated RBC % 0.0 /100WBC Nucleated RBCs # 0 K/uL Sodium 136 (136-145) mmol/L Potassium 4.2 (3.5-5.1) mmol/L Chloride 103 (98-107) mmol/L Carbon Dioxide 25.9 (21.0-32.0) mmol/L BUN 12 (7.0-18.0) mg/dL Creatinine 0.7 (0.6-1.0) mg/dL Est Cr Clr Drug Dosing 103.32 mL/min Estimated GFR (MDRD) > 60.0 ml/min Glucose 95 (74-106) mg/dL Calcium 9.1 (8.5-10.1) mg/dL Total Bilirubin 0.8 (0.2-1.0) mg/dL AST 16 (15-37) IU/L ALT 19 (14-63) IU/L Alkaline Phosphatase 27 L (46-116) U/L Total Protein 7.0 (6.4-8.2) g/dL Albumin 3.9 (3.4-5.0) g/dL Globulin 3.1 (2.6-4.0) g/dL Albumin/Globulin Ratio 1.3 (0.9-1.6) Lipase 140 (73-393) U/L Urine Color YELLOW Urine Appearance CLEAR Urine pH 7.5 (5.0-8.0) Ur Specific [place] 1.010 (1.001-1.035) Urine Protein NEGATIVE (NEGATIVE) mg/dL Urine Glucose (UA) NEGATIVE (NEGATIVE) mg/dL Urine Ketones NEGATIVE (NEGATIVE) mg/dL Urine Occult Blood NEGATIVE (NEGATIVE) Urine Nitrite NEGATIVE (NEGATIVE) Urine Bilirubin NEGATIVE (NEGATIVE) Urine Urobilinogen 0.2 (<2.0) EU/dL Ur Leukocyte Esterase SMALL H (NEGATIVE) Urine RBC 0-2 (0-2/HPF) Urine WBC 0-3 (0-5/HPF) Ur Epithelial Cells FEW (NONE-FEW) Urine Bacteria FEW (NEGATIVE) Urine HCG, Qual (NEGATIVE) 11/30/18 Range/Units 10:55 WBC (4.0-11.0) K/uL RBC (4.30-5.90) M/uL Hgb (12.0-16.0) g/dL Hct (36.0-46.0) % MCV (80.0-98.0) fL MCH (27.0-32.0) pg MCHC (31.0-37.0) g/dL RDW Std Deviation (28.0-62.0) fl RDW Coeff of [place] (11.0-15.0) % Plt Count (150-400) K/uL MPV (7.40-12.00) fL Neut % (Auto) (48.0-80.0) % Lymph % (Auto) (16.0-40.0) % [place] % (Auto) (0.0-15.0) % Eos % (Auto) (0.0-7.0) % Baso % (Auto) (0.0-1.5) % Neut # (Auto) (1.4-5.7) K/uL Lymph # (Auto) (0.6-2.4) K/uL [place] # (Auto) (0.0-0.8) K/uL Eos # (Auto) (0.0-0.7) K/uL Baso # (Auto) (0.0-0.1) K/uL Nucleated RBC % /100WBC Nucleated RBCs # K/uL Sodium (136-145) mmol/L Potassium (3.5-5.1) mmol/L Chloride (98-107) mmol/L Carbon Dioxide (21.0-32.0) mmol/L BUN (7.0-18.0) mg/dL Creatinine (0.6-1.0) mg/dL Est Cr Clr Drug Dosing mL/min Estimated GFR (MDRD) ml/min Glucose (74-106) mg/dL Calcium (8.5-10.1) mg/dL Total Bilirubin (0.2-1.0) mg/dL AST (15-37) IU/L ALT (14-63) IU/L Alkaline Phosphatase (46-116) U/L Total Protein (6.4-8.2) g/dL Albumin (3.4-5.0) g/dL Globulin (2.6-4.0) g/dL Albumin/Globulin Ratio (0.9-1.6) Lipase (73-393) U/L Urine Color Urine Appearance Urine pH (5.0-8.0) Ur Specific [place] (1.001-1.035) Urine Protein (NEGATIVE) mg/dL Urine Glucose (UA) (NEGATIVE) mg/dL Urine Ketones (NEGATIVE) mg/dL Urine Occult Blood (NEGATIVE) Urine Nitrite (NEGATIVE) Urine Bilirubin (NEGATIVE) Urine Urobilinogen (<2.0) EU/dL Ur Leukocyte Esterase (NEGATIVE) Urine RBC (0-2/HPF) Urine WBC (0-5/HPF) Ur Epithelial Cells (NONE-FEW) Urine Bacteria (NEGATIVE) Urine HCG, Qual NEGATIVE (NEGATIVE) Meds: Medications Discontinued Medications Generic Name Dose Route Start Last Admin Trade Name Freq PRN Reason Stop Dose Admin Sodium Chloride 1,000 mls @ 999 mls/hr 11/30/18 10:19 11/30/18 11:09 Normal Saline IV 11/30/18 11:19 Not Given STAT ONE Ondansetron HCl 4 mg 11/30/18 10:20 11/30/18 11:09 Zofran IVPUSH 11/30/18 10:21 Not Given ONETIME ONE Ondansetron HCl 4 mg 11/30/18 10:48 11/30/18 10:51 Zofran Odt PO 11/30/18 10:49 4 mg ONETIME ONE Administration Ondansetron HCl Confirm 11/30/18 10:49 11/30/18 11:09 Zofran Odt Administered 11/30/18 10:50 Not Given Dose 4 mg .ROUTE .STK-MED ONE - Re-Assessments/Exams Free Text/Narrative Re-Assessment/Exam: 11/30/18 10:49 The patient declined IV fluids and IV Zofran. Asked for oral ODT Zofran only Departure - Departure Time of Disposition: 11:32 Disposition: Home, Self-Care 01 Condition: Good Clinical Impression: Gastroenteritis, Flu-like symptoms - Discharge Information *PRESCRIPTION DRUG MONITORING PROGRAM REVIEWED*: Not Applicable *COPY OF PRESCRIPTION DRUG MONITORING REPORT IN PATIENT MARTINA: Not Applicable Referrals: PCP,None [Primary Care Provider] - [facility] [Outside] [facility] [Outside] Forms: ED Department Discharge Additional Instructions: 1. Follow-up in primary care 2. Push oral fluids and rest - My Orders Last 24 Hours: My Active Orders 11/30/18 10:30 CULTURE STREP A CONFIRMATION [RM] Stat 11/30/18 10:39 STREP SCRN A RAPID W CULT CONF [RM] Stat - Assessment/Plan Last 24 Hours: My Active Orders 11/30/18 10:30 CULTURE STREP A CONFIRMATION [RM] Stat 11/30/18 10:39 STREP SCRN A RAPID W CULT CONF [RM] Stat
[2018-11-30 11:19] LABS: CHLORIDE,CL 103 mmol/L (98-107); SODIUM,NA 136 mmol/L (136-145)
== END 2018-11-30 11:40 | disposition home or self-care (01) ==
LOC: MW.ED 09:48
DX: K52.9 Noninfective gastroenteritis and colitis, unspecified (principal); F17.210 Nicotine dependence, cigarettes, uncomplicated; Z88.0 Allergy status to penicillin
CPT/HCPCS: 36415; 80053; 81001; 81025; 83690; 85025; 87081; 87804; 87880; 99282; A9270

== ENCOUNTER 2019-04-01 21:04 | Emergency (ER) | payer SELFPAY ==
[2019-04-01] MEDS ORDERED: Sodium Chloride 0.9% 1,000 ML IV ONE (21:29)
--- NOTE | 2019-04-01 21:53 | EDM.PDOC ---
<Terrell Claire - Last Filed: 04/01/19 22:39> ED HPI GENERAL MEDICAL PROBLEM - General Chief Complaint: Chest Pain Stated Complaint: CHEST PAIN Time Seen by Provider: 04/01/19 21:06 - Related Data Allergies Allergy/AdvReac Type Severity Reaction Status Date / Time Penicillins Allergy Airway Verified 04/01/19 21:10 Tightness Home Meds: Home Meds Diclofenac Sodium [Voltaren] 75 mg PO BIDMEALS PRN #15 tab.cr 04/01/19 [Rx] Course - Vital Signs Last Recorded V/S: Last Vital Signs Temp 36.3 C 04/01/19 22:50 Pulse 88 04/01/19 22:50 Resp 18 04/01/19 22:50 BP 138/82 04/01/19 22:50 Pulse Ox 98 04/01/19 22:50 - Orders/Labs/Meds Orders: Active Orders 24 hr Category Date Time Status EKG Documentation Completion [RC] STAT Care 04/01/19 21:08 Active CULTURE URINE [RM] Stat Lab 04/01/19 21:20 Received Labs: Laboratory Tests 04/01/19 04/01/19 04/01/19 Range/Units 21:15 21:15 21:20 WBC 11.79 H (4.0-11.0) K/uL RBC 4.94 (4.30-5.90) M/uL Hgb 15.3 (12.0-16.0) g/dL Hct 43.6 (36.0-46.0) % MCV 88.3 (80.0-98.0) fL MCH 31.0 (27.0-32.0) pg MCHC 35.1 (31.0-37.0) g/dL RDW Std Deviation 40.7 (28.0-62.0) fl RDW Coeff of Maynor 13 (11.0-15.0) % Plt Count 272 (150-400) K/uL MPV 10.50 (7.40-12.00) fL Neut % (Auto) 58.0 (48.0-80.0) % Lymph % (Auto) 31.6 (16.0-40.0) % [place] % (Auto) 7.2 (0.0-15.0) % Eos % (Auto) 3.1 (0.0-7.0) % Baso % (Auto) 0.1 (0.0-1.5) % Neut # (Auto) 6.9 H (1.4-5.7) K/uL Lymph # (Auto) 3.7 H (0.6-2.4) K/uL [place] # (Auto) 0.9 H (0.0-0.8) K/uL Eos # (Auto) 0.4 (0.0-0.7) K/uL Baso # (Auto) 0.0 (0.0-0.1) K/uL Nucleated RBC % 0.0 /100WBC Nucleated RBCs # 0 K/uL Sodium 135 L (136-145) mmol/L Potassium 3.1 L (3.5-5.1) mmol/L Chloride 102 (98-107) mmol/L Carbon Dioxide 26.5 (21.0-32.0) mmol/L BUN 14 (7.0-18.0) mg/dL Creatinine 0.8 (0.6-1.0) mg/dL Est Cr Clr Drug Dosing 90.41 mL/min Estimated GFR (MDRD) > 60.0 ml/min Glucose 116 H (74-106) mg/dL Calcium 8.7 (8.5-10.1) mg/dL Total Bilirubin 0.9 (0.2-1.0) mg/dL AST 14 L (15-37) IU/L ALT 21 (14-63) IU/L Alkaline Phosphatase 23 L (46-116) U/L Troponin I < 0.050 (0.000-0.056) ng/mL Total Protein 6.9 (6.4-8.2) g/dL Albumin 3.9 (3.4-5.0) g/dL Globulin 3.0 (2.6-4.0) g/dL Albumin/Globulin Ratio 1.3 (0.9-1.6) Urine Color YELLOW Urine Appearance CLEAR Urine pH 6.5 (5.0-8.0) Ur Specific [place] 1.020 (1.001-1.035) Urine Protein NEGATIVE (NEGATIVE) mg/dL Urine Glucose (UA) NEGATIVE (NEGATIVE) mg/dL Urine Ketones TRACE H (NEGATIVE) mg/dL Urine Occult Blood MODERATE H (NEGATIVE) Urine Nitrite NEGATIVE (NEGATIVE) Urine Bilirubin NEGATIVE (NEGATIVE) Urine Urobilinogen 1.0 (<2.0) EU/dL Ur Leukocyte Esterase TRACE H (NEGATIVE) Urine RBC 1-2 (0-2/HPF) Urine WBC 0-1 (0-5/HPF) Ur Epithelial Cells OCCASIONAL (NONE-FEW) Urine Bacteria RARE (NEGATIVE) Urine HCG, Qual (NEGATIVE) 04/01/19 Range/Units 21:20 WBC (4.0-11.0) K/uL RBC (4.30-5.90) M/uL Hgb (12.0-16.0) g/dL Hct (36.0-46.0) % MCV (80.0-98.0) fL MCH (27.0-32.0) pg MCHC (31.0-37.0) g/dL RDW Std Deviation (28.0-62.0) fl RDW Coeff of Maynor (11.0-15.0) % Plt Count (150-400) K/uL MPV (7.40-12.00) fL Neut % (Auto) (48.0-80.0) % Lymph % (Auto) (16.0-40.0) % [place] % (Auto) (0.0-15.0) % Eos % (Auto) (0.0-7.0) % Baso % (Auto) (0.0-1.5) % Neut # (Auto) (1.4-5.7) K/uL Lymph # (Auto) (0.6-2.4) K/uL [place] # (Auto) (0.0-0.8) K/uL Eos # (Auto) (0.0-0.7) K/uL Baso # (Auto) (0.0-0.1) K/uL Nucleated RBC % /100WBC Nucleated RBCs # K/uL Sodium (136-145) mmol/L Potassium (3.5-5.1) mmol/L Chloride (98-107) mmol/L Carbon Dioxide (21.0-32.0) mmol/L BUN (7.0-18.0) mg/dL Creatinine (0.6-1.0) mg/dL Est Cr Clr Drug Dosing mL/min Estimated GFR (MDRD) ml/min Glucose (74-106) mg/dL Calcium (8.5-10.1) mg/dL Total Bilirubin (0.2-1.0) mg/dL AST (15-37) IU/L ALT (14-63) IU/L Alkaline Phosphatase (46-116) U/L Troponin I (0.000-0.056) ng/mL Total Protein (6.4-8.2) g/dL Albumin (3.4-5.0) g/dL Globulin (2.6-4.0) g/dL Albumin/Globulin Ratio (0.9-1.6) Urine Color Urine Appearance Urine pH (5.0-8.0) Ur Specific [place] (1.001-1.035) Urine Protein (NEGATIVE) mg/dL Urine Glucose (UA) (NEGATIVE) mg/dL Urine Ketones (NEGATIVE) mg/dL Urine Occult Blood (NEGATIVE) Urine Nitrite (NEGATIVE) Urine Bilirubin (NEGATIVE) Urine Urobilinogen (<2.0) EU/dL Ur Leukocyte Esterase (NEGATIVE) Urine RBC (0-2/HPF) Urine WBC (0-5/HPF) Ur Epithelial Cells (NONE-FEW) Urine Bacteria (NEGATIVE) Urine HCG, Qual NEGATIVE (NEGATIVE) Meds: Medications Discontinued Medications Generic Name Dose Route Start Last Admin Trade Name Freq PRN Reason Stop Dose Admin Sodium Chloride 1,000 mls @ 999 mls/hr 04/01/19 21:29 04/01/19 22:05 Normal Saline IV 04/01/19 22:29 999 mls/hr STAT ONE Administration Departure - Departure Time of Disposition: 22:39 Disposition: Home, Self-Care 01 Clinical Impression: Chest pain Qualifiers: Chest pain type: other chest pain Qualified Code(s): R07.89 - Other chest pain Prescriptions: Diclofenac Sodium [Voltaren] 75 mg PO BIDMEALS PRN #15 tab.cr PRN Reason: Pain Instructions: Chest Wall Pain, [id number] Referrals: PCP,Unknown [Primary Care Provider] - Forms: ED Department Discharge Additional Instructions: The following information is given to patients seen in the emergency department who are being discharged to home. This information is to outline your options for follow-up care. We provide all patients seen in our emergency department with a follow-up referral. The need for follow-up, as well as the timing and circumstances, are variable depending upon the specifics of your emergency department visit. If you don't have a primary care physician on staff, we will provide you with a referral. We always advise you to contact your personal physician following an emergency department visit to inform them of the circumstance of the visit and for follow-up with them and/or the need for any referrals to a consulting specialist. The emergency department will also refer you to a specialist when appropriate. This referral assures that you have the opportunity for follow-up care with a specialist. All of these measure are taken in an effort to provide you with optimal care, which includes your follow-up. Under all circumstances we always encourage you to contact your private physician who remains a resource for coordinating your care. When calling for follow-up care, please make the office aware that this follow-up is from your recent emergency room visit. If for any reason you are refused follow-up, please contact the [facility] Emergency Department at and asked to speak to the emergency department charge nurse. [facility] [address] [place] [id number] [place] [address] 1. Take medication as prescribed. You can also use Tylenol for pain and discomfort. 2. Follow up with your primary care provider as discussed. Return to the ED as needed and as discussed. - My Orders Last 24 Hours: My Active Orders 04/01/19 21:08 EKG Documentation Completion [RC] STAT 04/01/19 21:20 CULTURE URINE [RM] Stat - Assessment/Plan Last 24 Hours: My Active Orders 04/01/19 21:08 EKG Documentation Completion [RC] STAT 04/01/19 21:20 CULTURE URINE [RM] Stat <Kristine Rodríguez - Last Filed: 04/02/19 10:16> ED HPI GENERAL MEDICAL PROBLEM - General Source of Information: Reports: Patient History Limitations: Reports: No Limitations - History of Present Illness INITIAL COMMENTS - FREE TEXT/NARRATIVE: HISTORY AND PHYSICAL: History of present illness: 28yo female presenting for constant chest pain and intermittent palpitations that began two days prior to arrival. Patient reports that the chest pain feels like an ache and pressure in the center of her chest that worsen with stress and radiates into her back and neck. She has not taken any medication for the chest pain. Reports that she does smoke daily and feels this does contribute to her symptoms. Patient states that the palpitations sent to worsen when she is stressed but they call him and go. Patient states she has had this chest pain before in the past and it resolved without any issue. Patient states the pain is worse when she presses on the middle of her chest when she tries to take a big deep breath. Patient denies fever, chills, shortness of breath, or cough. Denies headache, neck stiff ness, change in vision, syncope, or near syncope. Denies nausea, vomiting, abdominal pain, diarrhea, constipation, or dysuria. Has not noted any blood in urine or stool. Patient has been eating and drinking appropriately. Review of systems: As per history of present illness and below otherwise all systems reviewed and negative. Past medical history: As per history of present illness and as reviewed below otherwise noncontributory. Surgical history: As per history of present illness and as reviewed below otherwise noncontributory. Social history: See social history for further information Family history: As per history of present illness and as reviewed below otherwise noncontributory. Physical exam: General: Patient is alert, oriented, and in no acute distress. Patient sitting comfortably on exam table. HEENT: Atraumatic, normocephalic, pupils equal and reactive bilaterally, negative for conjunctival pallor or scleral icterus, mucous membranes moist, TMs normal bilaterally, throat clear, neck supple, nontender, trachea midline. No drooling or trismus noted. No meningeal signs. No hot potato voice noted. Lungs: Clear to auscultation, breath sounds equal bilaterally. Reciprocal chest pain to palpation over the mid sternum. Heart: S1S2, regular rate and rhythm without overt murmur Abdomen: Obese, Soft, nondistended, nontender. Negative for masses or hepatosplenomegaly. Negative for costovertebral tenderness. Pelvis: Stable nontender. Genitourinary: Deferred. Rectal: Deferred. Skin: Intact, warm, dry. No lesions or rashes noted. Extremities: Atraumatic, negative for cords or calf pain. Neurovascular unremarkable. Neuro: Awake, alert, oriented. Cranial nerves II through XII unremarkable. Cerebellum unremarkable. Motor and sensory unremarkable throughout. Exam nonfocal. Notes: Discussed the importance of follow with the primary care provider. Voices understanding and is agreeable to plan of care. Denies any further questions or concerns at this time. Diagnostics: CBC, CMP, UA, urine hCG, chest x-ray, EKG, troponin Therapeutics: Saline Prescription: Diclofenac Impression: Chest pain, palpable Plan: 1. Take medication as prescribed. You can also use Tylenol for pain and discomfort. 2. Follow up with your primary care provider as discussed. Return to the ED as needed and as discussed. Definitive disposition and diagnosis as appropriate pending reevaluation and review of above. 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, Musculoskeletal History: Reports: None Neurological History: Reports: None Psychiatric History: Reports: Anxiety, Other (See Below) Other Psychiatric History: undiagniosed anxiety Endocrine/Metabolic History: Reports: None Hematologic History: Reports: None Immunologic History: Reports: None Oncologic (Cancer) History: Reports: None Dermatologic History: Reports: None - Infectious Disease History Infectious Disease History: Reports: Chicken Pox - Past Surgical History Head Surgeries/Procedures: Reports: None HEENT Surgical History: Reports: Adenoidectomy, Tonsillectomy Respiratory Surgical History: Reports: None GI Surgical History: Reports: None Female Surgical History: Reports: None, Other (See Below) Other Female Surgeries/Procedures: Surgery for Endometriosis Neurological Surgical History: Reports: None Oncologic Surgical History: Reports: None Dermatological Surgical History: Reports: None Social & Family History - Family History Family Medical History: Noncontributory - Tobacco Use Smoking Status *Q: Current Every Day Smoker Years of Tobacco use: 5 Packs/Tins Daily: 0.5 - Caffeine Use Caffeine Use: Reports: Coffee - Recreational Drug Use Recreational Drug Use: No ED ROS GENERAL - Review of Systems Review Of Systems: ROS reveals no pertinent complaints other than HPI. ED EXAM, GENERAL - Physical Exam Exam: See Below (see dictation)
[2019-04-01 21:56] LABS: CHLORIDE,CL 102 mmol/L (98-107); SODIUM,NA 135 mmol/L (136-145)
[2019-04-01 22:52] VITALS: BP 138/82
--- NOTE | 2019-04-01 23:05 | CR ---
INDICATION: Chest pain. COMPARISON: : One-view chest 13 July 2018 TECHNIQUE: Two view chest. FINDINGS: The lungs are clear. The heart, mediastinum and pulmonary vessels are of normal size. There is no evidence of pleural disease. IMPRESSION: Negative chest. Dictated by Barney Rodriguez MD @ Apr 01 2019 11:03PM Signed by Dr. Barney Rodriguez @ Apr 01 2019 11:04PM
== END 2019-04-01 22:50 | disposition home or self-care (01) ==
LOC: MW.ED 21:04
DX: R07.89 Other chest pain (principal); F17.210 Nicotine dependence, cigarettes, uncomplicated
CPT/HCPCS: 36415; 71046; 80053; 81001; 81025; 84484; 85025; 87086; 93005; 96360; 99285; J7040; 99283

== ENCOUNTER 2019-07-15 16:13 | Emergency (ER) | payer SELFPAY ==
--- NOTE | 2019-07-15 16:20 | EDM.PDOC ---
ED HPI GENERAL MEDICAL PROBLEM - General Chief Complaint: Back Pain or Injury Stated Complaint: HURT BACK Time Seen by Provider: 07/15/19 16:19 Source of Information: Reports: Patient History Limitations: Reports: No Limitations - History of Present Illness INITIAL COMMENTS - FREE TEXT/NARRATIVE: HISTORY AND PHYSICAL: History of present illness: Patient is a 28-year-old female presenting to the emergency room for lower back pain. Patient states yesterday she went to bend over and pick an object up while at work and "heard a pop". She states that she started to get pain on the left side of her lower back after this event. 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 She rates the pain on the left side of her back to 8 out of 10 that is currently dull. Aggravating factors include movement and sitting or lying down. There are no alleviating factors for patient as she has tried taking ibuprofen, Tylenol, diclofenac, and using heating pads without any reduction in her pain. She does report "numbness" on the left side of her gluteous merry, but denies numbness or tingling in her lower extremities/toes. 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 Denies abnormal vaginal discharge, bowel or bladder incontinence. Patient denies any fever, chills, headache, change in vision, syncope or near syncope. Denies any chest pain, shortness of breath or cough. Denies any abdominal pain, nausea, vomiting, diarrhea, constipation or dysuria. Has not noted any blood in urine or stool. Patient has been eating and drinking appropriately. Patient denies any chance of and uses condoms for control. Review of systems: As per history of present illness and below otherwise all systems reviewed and negative. Past medical history: As per history of present illness and as reviewed below otherwise noncontributory. Surgical history: As per history of present illness and as reviewed below otherwise noncontributory. Social history: See social history for further information Family history: As per history of present illness and as reviewed below otherwise noncontributory. Physical exam: General: Patient is a well-nourished and well-developed 28-year-old female. Alert and oriented. Nontoxic in appearance and in no acute distress. Vital signs are stable and have been reviewed by me. HEENT: Atraumatic, normocephalic, pupils equal and reactive bilaterally, negative for conjunctival pallor or scleral icterus, mucous membranes moist, TMs normal bilaterally, throat clear, neck supple, nontender, trachea midline. No drooling or trismus noted. No meningeal signs. No hot potato voice noted. Lungs: Clear to auscultation, breath sounds equal bilaterally, chest nontender. Heart: S1S2, regular rate and rhythm without overt murmur Abdomen: Soft, nondistended, nontender. Negative for masses or hepatosplenomegaly. Negative for costovertebral tenderness. C-spine/Back:Pinpoint vertebral tenderness upon palpation of the lumbar and sacral vertebra. No crepitus, step-offs or obvious deformities. Patient is ambulatory into the emergency room without difficulty or deficit. Able to rock back on heels and walk on toes. Denies any urinary or fecal incontinence. Denies any numbness, tingling or saddle paresthesia. Skin: Intact, warm, dry. No lesions or rashes noted. Extremities: Atraumatic, moves all extremities per self without difficulty or deficits, negative for cords or calf pain. Neurovascular unremarkable. Neuro: Awake, alert, oriented. Cranial nerves II through XII unremarkable. Cerebellum unremarkable. Motor and sensory unremarkable throughout. Exam nonfocal. Notes: X-ray shows no acute findings. She does have slight bacteria in her urine, although is asymptomatic. Urine culture has been added. We'll not treat that at this time. Patient had been previously using diclofenac and did not have any relief. She does not have any relief with the Toradol and Norflex IM. We discussed the need to follow up with her primary care she may need further imaging such as MRI if she continues to have discomfort. Supportive care measures were reviewed and discussed. Voices understanding and is agreeable to plan of care. Denies any further questions or concerns at this time. Diagnostics: X-ray Therapeutics: Norflex and Toradol IM Prescription: Tramadol (#15) Flexeril (#21) Impression: Lumbar Back Pain Plan: 1. The medication you received today does cause drowsiness, so do not drive for the remaining day 2. When resting please lay on a flat firm surface. Limit your immobility to prevent muscle stiffness. Get up to ambulate/move around/gentle stretching multiple times throughout the day. May alternate heat and ice to the painful areas 3. Tylenol as needed for back pain. Otherwise take the prescribed Flexeril and Tramadol as directed. These medications may cause drowsiness a do not take it will driving her needing to be functioning outside of the house. 4. Please follow-up with your primary care provider as we discussed. Return to the ED as needed and as discussed. Definitive disposition and diagnosis as appropriate pending reevaluation and review of above. Back Pain Score (Numeric/FACES): 8 - Related Data Allergies Allergy/AdvReac Type Severity Reaction Status Date / Time Penicillins Allergy Airway Verified 07/15/19 16:24 Tightness Home Meds: Home Meds . 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, Musculoskeletal History: Reports: None Neurological History: Reports: None Psychiatric History: Reports: Anxiety Other Psychiatric History: undiagniosed anxiety Endocrine/Metabolic History: Reports: None Hematologic History: Reports: None Immunologic History: Reports: None Oncologic (Cancer) History: Reports: None Dermatologic History: Reports: None - Infectious Disease History Infectious Disease History: Reports: Chicken Pox - Past Surgical History Head Surgeries/Procedures: Reports: None HEENT Surgical History: Reports: Adenoidectomy, Tonsillectomy Respiratory Surgical History: Reports: None GI Surgical History: Reports: None Female Surgical History: Reports: None, Other (See Below) Other Female Surgeries/Procedures: Surgery for Endometriosis Neurological Surgical History: Reports: None Oncologic Surgical History: Reports: None Dermatological Surgical History: Reports: None Social & Family History - Family History Family Medical History: Noncontributory - Caffeine Use Caffeine Use: Reports: Coffee, Energy Drinks ED ROS GENERAL - Review of Systems Review Of Systems: ROS reveals no pertinent complaints other than HPI. ED EXAM,LOWER BACK PAIN/INJURY - Physical Exam Exam: See Below (See dictation) Course - Vital Signs Last Recorded V/S: Last Vital Signs Temp 98.0 F 07/15/19 16:24 Pulse 75 07/15/19 18:10 Resp 16 07/15/19 18:10 BP 139/86 07/15/19 18:10 Pulse Ox 98 07/15/19 18:10 - Orders/Labs/Meds Orders: Active Orders 24 hr Category Date Time Status CULTURE URINE [RM] Stat Lab 07/15/19 17:20 Received Labs: Laboratory Tests 07/15/19 07/15/19 Range/Units 17:00 17:20 Urine Color YELLOW Urine Appearance SLT CLOUDY Urine pH 6.0 (5.0-8.0) Ur Specific [place] 1.025 (1.001-1.035) Urine Protein NEGATIVE (NEGATIVE) mg/dL Urine Glucose (UA) NEGATIVE (NEGATIVE) mg/dL Urine Ketones NEGATIVE (NEGATIVE) mg/dL Urine Occult Blood NEGATIVE (NEGATIVE) Urine Nitrite NEGATIVE (NEGATIVE) Urine Bilirubin NEGATIVE (NEGATIVE) Urine Urobilinogen 0.2 (<2.0) EU/dL Ur Leukocyte Esterase TRACE H (NEGATIVE) Urine RBC 1-3 (0-2/HPF) Urine WBC 2-5 (0-5/HPF) Ur Epithelial Cells FEW (NONE-FEW) Amorphous Sediment FEW (NEGATIVE) Urine Bacteria FEW (NEGATIVE) Urine Mucus FEW (NONE-MOD) Urine HCG, Qual NEGATIVE (NEGATIVE) Meds: Medications Discontinued Medications Generic Name Dose Route Start Last Admin Trade Name Freq PRN Reason Stop Dose Admin Ketorolac Tromethamine 60 mg 07/15/19 16:52 07/15/19 17:14 Toradol IM 07/15/19 16:53 60 mg ONETIME ONE Administration Orphenadrine Citrate 60 mg 07/15/19 16:52 07/15/19 17:13 Norflex IM 07/15/19 16:53 60 mg NOW STA Administration Departure - Departure Time of Disposition: 18:34 Disposition: Home, Self-Care 01 Clinical Impression: Lumbar back pain - Discharge Information Instructions: Muscle Strain, [id number] Referrals: PCP,None [Primary Care Provider] - Forms: ED Department Discharge Additional Instructions: The following information is given to patients seen in the emergency department who are being discharged to home. This information is to outline your options for follow-up care. We provide all patients seen in our emergency department with a follow-up referral. The need for follow-up, as well as the timing and circumstances, are variable depending upon the specifics of your emergency department visit. If you don't have a primary care physician on staff, we will provide you with a referral. We always advise you to contact your personal physician following an emergency department visit to inform them of the circumstance of the visit and for follow-up with them and/or the need for any referrals to a consulting specialist. The emergency department will also refer you to a specialist when appropriate. This referral assures that you have the opportunity for follow-up care with a specialist. All of these measure are taken in an effort to provide you with optimal care, which includes your follow-up. Under all circumstances we always encourage you to contact your private physician who remains a resource for coordinating your care. When calling for follow-up care, please make the office aware that this follow-up is from your recent emergency room visit. If for any reason you are refused follow-up, please contact the [facility] Emergency Department at and asked to speak to the emergency department charge nurse. [facility] [address] [place] [address] [place] [address] 1. The medication you received today does cause drowsiness, so do not drive for the remaining day 2. When resting please lay on a flat firm surface. Limit your immobility to prevent muscle stiffness. Get up to ambulate/move around/gentle stretching multiple times throughout the day. May alternate heat and ice to the painful areas 3. Tylenol as needed for back pain. Otherwise take the prescribed Flexeril and Tramadol as directed. These medications may cause drowsiness a do not take it will driving her needing to be functioning outside of the house. 4. Please follow-up with your primary care provider as we discussed. Return to the ED as needed and as discussed. - My Orders Last 24 Hours: My Active Orders 07/15/19 17:20 CULTURE URINE [RM] Stat - Assessment/Plan Last 24 Hours: My Active Orders 07/15/19 17:20 CULTURE URINE [RM] Stat
[2019-07-15] MEDS ORDERED: Ketorolac 60 MG/2 ML SDV IM ONE (16:52)
[2019-07-15 18:10] VITALS: BP 139/86; PULSE 75
--- NOTE | 2019-07-15 18:25 | CR ---
HISTORY: Low back pain after bending over COMPARISON: None available. FINDINGS: The lumbar spine was examined with AP, lateral, and lateral spot views for a total of three views. There is no sign of fracture or subluxation. The vertebral bodies are normal in height and they are in anatomic alignment. The disc spaces are normal in height as well. The visualized bony pelvis and bowel gas pattern are normal in appearance. IMPRESSION: Normal lumbar spine. Dictated by Oswaldo Alvarado MD @ Jul 15 2019 6:22PM Signed by Dr. Oswaldo Alvarado @ Jul 15 2019 6:23PM
== END 2019-07-15 18:49 | disposition home or self-care (01) ==
LOC: MW.ED 16:13
DX: M54.5 Low back pain (principal); Z88.0 Allergy status to penicillin; X50.1XXA Overexertion from prolonged static or awkward postures, initial encounter; Y93.89 Activity, other specified; Y92.89 Other specified places as the place of occurrence of the external cause; Y99.0 Civilian activity done for income or pay
CPT/HCPCS: 72100; 81001; 81025; 87086; 96372; 99283; J1885; J2360

== ENCOUNTER 2019-10-04 05:26 | Emergency (ER) | payer SELFPAY ==
--- NOTE | 2019-10-04 06:17 | EDM.PDOC ---
ED HPI GENERAL MEDICAL PROBLEM - General Chief Complaint: Back Pain or Injury Stated Complaint: BACK PAIN Time Seen by Provider: 10/04/19 05:56 Source of Information: Reports: Patient History Limitations: Reports: No Limitations - History of Present Illness INITIAL COMMENTS - FREE TEXT/NARRATIVE: 28-year-old female who presents to the emergency room with back pain over the past week. Patient denies any known trauma. Patient states she might have pulled her muscle. Patient only has pain to one side but does not remember an injury. Onset: Today Duration: Week(s):, Intermittent Location: Reports: Back Quality: Reports: Ache, Dull Severity: Moderate Improves with: Reports: None Worsens with: Reports: None Associated Symptoms: Reports: No Other Symptoms Left Back Pain Score (Numeric/FACES): 7 - Related Data Allergies Allergy/AdvReac Type Severity Reaction Status Date / Time Penicillins Allergy Airway Verified 10/04/19 05:32 Tightness Home Meds: Home Meds . 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, Musculoskeletal History: Reports: None Neurological History: Reports: None Psychiatric History: Reports: Anxiety Other Psychiatric History: undiagniosed anxiety Endocrine/Metabolic History: Reports: None Hematologic History: Reports: None Immunologic History: Reports: None Oncologic (Cancer) History: Reports: None Dermatologic History: Reports: None - Infectious Disease History Infectious Disease History: Reports: Chicken Pox - Past Surgical History Head Surgeries/Procedures: Reports: None HEENT Surgical History: Reports: Adenoidectomy, Tonsillectomy Respiratory Surgical History: Reports: None GI Surgical History: Reports: None Female Surgical History: Reports: None, Other (See Below) Other Female Surgeries/Procedures: Surgery for Endometriosis Neurological Surgical History: Reports: None Oncologic Surgical History: Reports: None Dermatological Surgical History: Reports: None Social & Family History - Family History Family Medical History: Noncontributory - Tobacco Use Smoking Status *Q: Current Every Day Smoker Years of Tobacco use: 10 Packs/Tins Daily: 1 - Caffeine Use Caffeine Use: Reports: Coffee, Energy Drinks - Recreational Drug Use Recreational Drug Use: No ED ROS GENERAL - Review of Systems Review Of Systems: See Below Constitutional: Reports: No Symptoms HEENT: Reports: No Symptoms Respiratory: Reports: No Symptoms Cardiovascular: Reports: No Symptoms Endocrine: Reports: No Symptoms GI/Abdominal: Reports: No Symptoms : Reports: No Symptoms Musculoskeletal: Reports: Back Pain Skin: Reports: No Symptoms Neurological: Reports: No Symptoms Psychiatric: Reports: No Symptoms Hematologic/Lymphatic: Reports: No Symptoms Immunologic: Reports: No Symptoms ED EXAM,LOWER BACK PAIN/INJURY - Physical Exam Exam: See Below Exam Limited By: No Limitations General Appearance: Alert, WD/WN, No Apparent Distress Ears: Normal External Exam Nose: Normal Inspection Throat/Mouth: Normal Inspection, Normal Lips, Normal Oropharynx, Normal Voice Head: Atraumatic, Normocephalic, Other Neck: Normal Inspection, Supple Respiratory/Chest: No Respiratory Distress, Lungs Clear, Normal Breath Sounds Cardiovascular: Normal Peripheral Pulses, Regular Rate, Rhythm, No JVD, No Murmur (Female) Exam: Deferred Back Exam: Normal Inspection, CVA Tenderness (R) Extremities: Normal Inspection, Normal Range of Motion, No Pedal Edema, Normal Capillary Refill Neurological: Alert, Normal Mood/Affect, Normal Plantar Flexion, Normal Gait Psychiatric: Normal Affect, Normal Mood Skin Exam: Warm, Dry, Intact Course - Vital Signs Last Recorded V/S: Last Vital Signs Temp 96.8 F 10/04/19 05:32 Pulse 91 10/04/19 05:32 Resp 16 10/04/19 05:32 BP 135/91 H 10/04/19 05:32 Pulse Ox 97 10/04/19 05:32 - Orders/Labs/Meds Labs: Laboratory Tests 10/04/19 10/04/19 Range/Units 06:20 06:20 Urine Color YELLOW Urine Appearance CLEAR Urine pH 6.5 (5.0-8.0) Ur Specific [place] 1.020 (1.001-1.035) Urine Protein NEGATIVE (NEGATIVE) mg/dL Urine Glucose (UA) NEGATIVE (NEGATIVE) mg/dL Urine Ketones NEGATIVE (NEGATIVE) mg/dL Urine Occult Blood NEGATIVE (NEGATIVE) Urine Nitrite NEGATIVE (NEGATIVE) Urine Bilirubin NEGATIVE (NEGATIVE) Urine Urobilinogen 0.2 (<2.0) EU/dL Ur Leukocyte Esterase NEGATIVE (NEGATIVE) Urine HCG, Qual NEGATIVE (NEGATIVE) Departure - Departure Time of Disposition: 07:04 Disposition: Home, Self-Care 01 Condition: Good Clinical Impression: Back spasm - Discharge Information Instructions: Muscle Strain, [id number], Muscle Cramps and Spasms, Easy-to- Read Referrals: PCP,None [Primary Care Provider] - Forms: ED Department Discharge Sepsis Event Note - Evaluation Sepsis Screening Result: No Definite Risk - Focused Exam Vital Signs: Vital Signs Temp Pulse Resp BP Pulse Ox 10/04/19 05:32 96.8 F 91 16 135/91 H 97 Date Exam was Performed: 10/04/19 Time Exam was Performed: 07:03
[2019-10-04 07:29] VITALS: BP 130/84; PULSE 80
== END 2019-10-04 07:26 | disposition home or self-care (01) ==
LOC: MW.ED 05:26
DX: M62.830 Muscle spasm of back (principal); F17.210 Nicotine dependence, cigarettes, uncomplicated; Z88.0 Allergy status to penicillin
CPT/HCPCS: 81003; 81025; 99282; 99283

== ENCOUNTER 2020-08-16 08:44 | Day surgery (SDC) | payer MEDICAID ==
[2020-08-13 10:23] LABS: BLOOD UREA NITROGEN,BUN 13 mg/dL (7.0-18.0); CARBON DIOXIDE,CO2 27.7 mmol/L (21.0-32.0); CHLORIDE,CL 104 mmol/L (98-107); GLUCOSE RANDOM 95 mg/dL (74-106); POTASSIUM,K 3.9 mmol/L (3.5-5.1); SODIUM,NA 142 mmol/L (136-145)
[~2020-08-16 08:44] MED LIST: Acetaminophen 1,000 MG in Premix Bag 1 BAG IV PRN; Glycopyrrolate 0.2 MG/ML SDV ONE; Ketorolac 30 MG/ML SDV ONE; Lactated Ringers 1,000 ML IV SCH; Lidocaine 2% 5 ML SDV ONE; Midazolam 1 MG/ML 2 ML SDV ONE; Ondansetron 4 MG/2 ML SDV ONE; Propofol 200 MG/20 ML SDV ONE; Rocuronium Bromide 50 MG/5 ML Syringe ONE; Sodium Chloride 0.9% 10 ML SDV IV PRN; Sodium Chloride 0.9% 10 ML Syringe FLUSH PRN; Sodium Chloride 0.9% 2.5 ML Syringe FLUSH PRN; Sodium Chloride 0.9% 20 ML ONE; ceFAZolin 1 GM Vial ONE; ceFAZolin 2 GM in Premix Bag 1 BAG IV ONE; fentaNYL 250 MCG/5 ML SDV ONE
--- NOTE | 2020-08-16 09:19 | PCM.PREANE ---
Preanesthetic Assessment - Anesthesia/Transfusion/Family Hx Anesthesia History: Prior Anesthesia Without Reaction Family History of Anesthesia Reaction: No Transfusion History: No Prior Transfusion(s) - Review of Systems General: No Symptoms Pulmonary: No Symptoms Cardiovascular: No Symptoms Gastrointestinal: No Symptoms Neurological: No Symptoms Other: Reports: None - Physical Assessment NPO Status Date: 08/15/20 Height: 5 ft 4 in Weight: 88.451 kg ASA Class: 2 Mental Status: Alert & Oriented x3 Airway Class: Mallampati = 2 Dentition: Reports: Normal Dentition ROM/Head Extension: Full Lungs: Clear to Auscultation, Normal Respiratory Effort Cardiovascular: Regular Rate, Regular Rhythm - Lab Values: Laboratory Last Values WBC 7.98 K/uL (4.0-11.0) 08/13/20 09:56 RBC 5.13 M/uL (4.30-5.90) 08/13/20 09:56 Hgb 15.6 g/dL (12.0-16.0) 08/13/20 09:56 Hct 46.5 % (36.0-46.0) H 08/13/20 09:56 MCV 90.6 fL (80.0-98.0) 08/13/20 09:56 MCH 30.4 pg (27.0-32.0) 08/13/20 09:56 MCHC 33.5 g/dL (31.0-37.0) 08/13/20 09:56 RDW Std Deviation 41.6 fl (28.0-62.0) 08/13/20 09:56 RDW Coeff of Maynor 13 % (11.0-15.0) 08/13/20 09:56 Plt Count 278 K/uL (150-400) 08/13/20 09:56 MPV 9.90 fL (7.40-12.00) 08/13/20 09:56 Nucleated RBC % 0.0 /100WBC 08/13/20 09:56 Nucleated RBCs # 0 K/uL 08/13/20 09:56 Sodium 142 mmol/L (136-145) 08/13/20 09:56 Potassium 3.9 mmol/L (3.5-5.1) 08/13/20 09:56 Chloride 104 mmol/L (98-107) 08/13/20 09:56 Carbon Dioxide 27.7 mmol/L (21.0-32.0) 08/13/20 09:56 BUN 13 mg/dL (7.0-18.0) 08/13/20 09:56 Creatinine 0.7 mg/dL (0.6-1.0) 08/13/20 09:56 Est Cr Clr Drug Dosing 102.40 mL/min 08/13/20 09:56 Estimated GFR (MDRD) > 60.0 ml/min 08/13/20 09:56 Glucose 95 mg/dL (74-106) 08/13/20 09:56 Calcium 9.1 mg/dL (8.5-10.1) 08/13/20 09:56 HCG, Qual NEGATIVE (NEG) 08/13/20 09:56 Blood Type A POSITIVE 08/13/20 09:56 Antibody Screen NEGATIVE 08/13/20 09:56 - Allergies Allergies/Adverse Reactions: Allergies Allergy/AdvReac Type Severity Reaction Status Date / Time Penicillins Allergy Anaphylactic Verified 08/10/20 08:18 Shock - Blood Blood Available: No - Anesthesia Plan Pre-Op Medication Ordered: None - Acknowledgements Anesthesia Type Planned: General Anesthesia Pt an Appropriate Candidate for the Planned Anesthesia: Yes Alternatives and Risks of Anesthesia Discussed w Pt/Guardian: Yes Pt/Guardian Understands and Agrees with Anesthesia Plan: Yes Additional Comments: PMH: pcos, smoker, anx/dep, endometriosis PLAN: get PreAnesthesia Questionnaire HEENT History: Reports: None Cardiovascular History: Reports: None Respiratory History: Reports: None Gastrointestinal History: Reports: None Genitourinary History: Reports: None 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, Musculoskeletal History: Reports: None Neurological History: Reports: None Psychiatric History: Reports: Anxiety Other Psychiatric History: undiagniosed anxiety Endocrine/Metabolic History: Reports: None Hematologic History: Reports: None Immunologic History: Reports: None Oncologic (Cancer) History: Reports: None Dermatologic History: Reports: None - Infectious Disease History Infectious Disease History: Reports: Chicken Pox - Past Surgical History Female Surgical History: Reports: None, Other (See Below) Other Female Surgeries/Procedures: Surgery for Endometriosis - SUBSTANCE USE Tobacco Use Status *Q: Current Every Day Tobacco User Tobacco Use Within Last Twelve Months: Cigarettes - HOME MEDS Home Medications: Home Meds . [No Known Home Meds] 10/30/20 [History] - CURRENT (IN HOUSE) MEDS Current Meds: Current Medications Fentanyl (Sublimaze) 50 mcg IVPUSH Q5M PRN PRN Reason: Pain Lactated Ringer's (Ringers, Lactated) 1,000 mls @ 125 mls/hr IV ASDIRECTED IVONNE Acetaminophen 1,000 mg/ Premix 100 mls @ 400 mls/hr IV ONETIME PRN PRN Reason: Pain Sodium Chloride (Saline Flush) 10 ml FLUSH ASDIRECTED PRN PRN Reason: Keep Vein Open Sodium Chloride (Saline Flush) 2.5 ml FLUSH ASDIRECTED PRN PRN Reason: Keep Vein Open Sodium Chloride (Normal Saline) 10 ml IV ASDIRECTED PRN PRN Reason: IV Use Discontinued Medications Cefazolin Sodium (Ancef) Confirm Administered Dose 2 gm .ROUTE .STK-MED ONE Stop: 08/16/20 08:29 Fentanyl (Sublimaze) Confirm Administered Dose 250 mcg .ROUTE .STK-MED ONE Stop: 08/16/20 07:19 Glycopyrrolate (Robinul) Confirm Administered Dose 0.8 mg .ROUTE .STK-MED ONE Stop: 08/16/20 07:21 Cefazolin Sodium/Dextrose 2 gm (/ Premix) 50 mls @ 100 mls/hr IV ONETIME ONE Stop: 08/13/20 09:42 Sodium Chloride (Normal Saline) Confirm Administered Dose 20 mls @ as directed .ROUTE .STK-MED ONE Stop: 08/16/20 08:29 Ketorolac Tromethamine (Toradol) Confirm Administered Dose 30 mg .ROUTE .STK-MED ONE Stop: 08/16/20 07:21 Lidocaine (Xylocaine-Mpf 2%) Confirm Administered Dose 5 ml .ROUTE .STK-MED ONE Stop: 08/16/20 07:21 Midazolam HCl (Versed 1 Mg/Ml) Confirm Administered Dose 2 mg .ROUTE .STK-MED ONE Stop: 08/16/20 07:19 Ondansetron HCl (Zofran) Confirm Administered Dose 4 mg .ROUTE .STK-MED ONE Stop: 08/16/20 07:21 Propofol (Diprivan 20 Ml) Confirm Administered Dose 200 mg .ROUTE .STK-MED ONE Stop: 08/16/20 07:19 Rocuronium [place] (Rocuronium [place]) Confirm Administered Dose 50 mg .ROUTE .STK-[facility] ONE Stop: 08/16/20 07:21
[2020-08-16] MEDS ORDERED: HYDROmorphone 2 MG/ML Syringe ONE (10:15)
[2020-08-16] MEDS ORDERED: Furosemide 40 MG/4 ML VIAL ONE (10:53)
[2020-08-16] MEDS ORDERED: Fluorescein 5 ML Vial ONE (10:54)
[2020-08-16] MEDS ORDERED: Rocuronium Bromide 50 MG/5 ML Syringe ONE (10:58)
[2020-08-16] MEDS ORDERED: Octyl 2-Cyanoacrylate 1 Tube ONE (11:19)
[2020-08-16] MEDS ORDERED: Ketorolac 30 MG/ML SDV IVPUSH ONE (11:21)
[2020-08-16] MEDS ORDERED: Ondansetron 4 MG/2 ML SDV IVPUSH PRN (11:21)
[2020-08-16] MEDS ORDERED: Promethazine 25 MG/ML SDV IM PRN (11:21)
[2020-08-16] MEDS ORDERED: Morphine 4 MG/ML Syringe IVPUSH PRN (11:21)
[2020-08-16] MEDS ORDERED: Acetaminophen/oxyCODONE 325-5 MG Tab PO PRN (11:21)
--- NOTE | 2020-08-16 11:25 | PCM.OPNOTE ---
- General Post-Op/Procedure Note Date of Surgery/Procedure: 08/16/20 Operative Procedure(s): TLH Sl Post-Op Diagnosis: Same Anesthesia Technique: General ET Tube Primary Surgeon: Sukhjinder Mohan Metal Buggy Operator: Christine Masterson EBL in mLs: 150 Complications: None Condition: Good
[2020-08-16] MEDS: fentaNYL 100 MCG/2 ML SDV IVPUSH PRN ×2 (11:54→12:04)
--- NOTE | 2020-08-16 12:33 | PCM.POSTAN ---
POST ANESTHESIA ASSESSMENT - MENTAL STATUS Mental Status: Alert, Oriented - VITAL SIGNS Vital Signs: Last Vital Signs Temp 97.0 F 08/16/20 11:40 Pulse 74 08/16/20 12:25 Resp 10 L 08/16/20 12:25 BP 118/75 08/16/20 12:25 Pulse Ox 94 L 08/16/20 12:25 - RESPIRATORY Respiratory Status: Respiratory Rate WNL, Airway Patent, O2 Saturation Stable - CARDIOVASCULAR CV Status: Pulse Rate WNL, Blood Pressure Stable - GASTROINTESTINAL GI Status: No Symptoms - POST OP HYDRATION Hydration Status: Adequate & Stable
--- NOTE | 2020-08-16 13:14 | OR ---
SURGEON: Sukhjinder Mohan MD DATE OF PROCEDURE: 08/16/2020 PREOPERATIVE DIAGNOSES: Dysmenorrhea, menometrorrhagia, and history of endometriosis. POSTOPERATIVE DIAGNOSES: Dysmenorrhea, menometrorrhagia, and history of endometriosis. OPERATION PERFORMED: Diagnostic laparoscopy, total laparoscopic hysterectomy, bilateral laparoscopic salpingectomy preserving both ovaries, and cystoscopy. PRIMARY SURGEON: Sukhjinder Mohan MD. CROP OR LIVESTOCK TENANT FARMER: Christine Masterson. ANESTHESIA: General tracheal intubation. Mr. Milo Dodd and Dr. Powers. ESTIMATED BLOOD LOSS: 150 mL. COMPLICATIONS: None. FINDING: Uterus is about 10 week size. Evidence of endometriosis at the back of the uterus. INDICATION FOR SURGERY: This patient is 29, she is finished with her family. She has a history of endometriosis diagnosed with diagnostic laparoscopy before and pathology. She has pelvic pain. She has dysmenorrhea and menometrorrhagia. PROCEDURE IN DETAIL: The patient was brought to the OR, properly identified. After adequate level of anesthesia, the patient was placed in lithotomy position with an access to the abdomen and the vagina. The patient was prepped and draped in sterile fashion as usual. Then, a Sen catheter was placed in the bladder and colpotomizer manipulator placed in the uterus for manipulation. Then, operation shifted abdominally. Stab wound done beneath the umbilicus. The Veress needle was placed in the peritoneal cavity and that cavity insufflated with 3.5 L of carbon dioxide. Then utilizing the Visiport technique, the central trocar placed beneath the umbilicus. Two trocars, one 10/12 in the left iliac fossa and 5 mm in the right iliac fossa. The operation started by identifying the landmark of the anatomy, and using the Chong Harmonic scapula, the superior pedicle was coagulated, transected. The tubes included with the specimen on both side, the ovary on both sides preserved, and then, the round ligament coagulated, transected, and then, the anterior leaf of the broad ligament dissected down more medially pushing the bladder away from the operative field. The uterine vessel was coagulated, transected at the level of the manipulator, and then, using the Chong Harmonic scapula, a circular incision in the vagina was done. The cervix, uterus, and both tubes removed vaginally, and then after that, pneumoperitoneum re-established by placing vaginal pack in the vagina and thorough irrigation of the pelvis showed no oozing, no bleeding. We proceeded to close the vaginal cuff laparoscopically using 2-0 PDS interrupted sutures. While that was done, we asked the Anesthesia personnel to give the patient fluorescein, and after closing the vagina, thorough irrigation of the pelvis was done. There was no oozing, no bleeding. The ureters identified from both sides. They both peristalsing, and then, after that, the abdomen was deflated. The Sen catheter was removed and cystoscopy was performed. The bladder was intact. Both ureteric orifices were seen with the dye coming from both of them. Thus, the patency of both ureters verified. Satisfied with these findings, the procedure ended. Instrument and sponge count was correct. The patient tolerated the procedure well, went to recovery room in stable general condition. YOLANDE / RASHIDA /[id number]
[2020-08-16] MEDS: Ketorolac 30 MG/ML SDV IVPUSH PRN (17:08)
[2020-08-16] MEDS: Acetaminophen/oxyCODONE 325-5 MG Tab PO PRN (20:18)
[2020-08-17] MEDS: Ketorolac 30 MG/ML SDV IVPUSH PRN (02:28)
[2020-08-17] MEDS: Acetaminophen/oxyCODONE 325-5 MG Tab PO PRN ×2 (02:28→06:51)
[2020-08-17 07:13] LABS: BLOOD UREA NITROGEN,BUN 13 mg/dL (7.0-18.0); CARBON DIOXIDE,CO2 29.8 mmol/L (21.0-32.0); CHLORIDE,CL 105 mmol/L (98-107); GLUCOSE RANDOM 93 mg/dL (74-106); SODIUM,NA 138 mmol/L (136-145)
[2020-08-17 08:42] VITALS: BP 115/66; PULSE 80
--- NOTE | 2020-08-17 08:46 | PCM.SURGPN ---
- General Info Date of Service: 08/17/20 POD#: 1 Functional Status: Reports: Pain Controlled - Review of Systems General: Reports: No Symptoms HEENT: Reports: No Symptoms Pulmonary: Reports: No Symptoms Cardiovascular: Reports: No Symptoms Gastrointestinal: Reports: No Symptoms Genitourinary: Reports: No Symptoms Musculoskeletal: Reports: No Symptoms Skin: Reports: No Symptoms Neurological: Reports: No Symptoms Psychiatric: Reports: No Symptoms - Patient Data Vitals - Most Recent: Last Vital Signs Temp 36.8 C 08/17/20 08:00 Pulse 80 08/17/20 08:00 Resp 14 08/17/20 08:00 BP 115/66 08/17/20 08:00 Pulse Ox 95 08/17/20 08:00 Weight - Most Recent: 88.451 kg I&O - Last 24 Hours: Intake & Output 08/16/20 08/17/20 08/17/20 22:59 06:59 14:59 Intake Total 994 Output Total 598 275 Balance 396 -275 Lab Results Last 24 Hrs: Laboratory Results - last 24 hr 08/17/20 08/17/20 Range/Units 06:42 06:42 WBC 13.78 H (4.0-11.0) K/uL RBC 4.35 (4.30-5.90) M/uL Hgb 13.2 (12.0-16.0) g/dL Hct 39.6 (36.0-46.0) % MCV 91.0 (80.0-98.0) fL MCH 30.3 (27.0-32.0) pg MCHC 33.3 (31.0-37.0) g/dL RDW Std Deviation 42.3 (28.0-62.0) fl RDW Coeff of Maynor 13 (11.0-15.0) % Plt Count 245 (150-400) K/uL MPV 9.70 (7.40-12.00) fL Neut % (Auto) 72.9 (48.0-80.0) % Lymph % (Auto) 16.5 (16.0-40.0) % [place] % (Auto) 8.8 (0.0-15.0) % Eos % (Auto) 1.7 (0.0-7.0) % Baso % (Auto) 0.1 (0.0-1.5) % Neut # (Auto) 10.1 H (1.4-5.7) K/uL Lymph # (Auto) 2.3 (0.6-2.4) K/uL [place] # (Auto) 1.2 H (0.0-0.8) K/uL Eos # (Auto) 0.2 (0.0-0.7) K/uL Baso # (Auto) 0.0 (0.0-0.1) K/uL Nucleated RBC % 0.0 /100WBC Nucleated RBCs # 0 K/uL Sodium 138 (136-145) mmol/L Potassium 4.0 (3.5-5.1) mmol/L Chloride 105 (98-107) mmol/L Carbon Dioxide 29.8 (21.0-32.0) mmol/L BUN 13 (7.0-18.0) mg/dL Creatinine 0.9 (0.6-1.0) mg/dL Est Cr Clr Drug Dosing 79.64 mL/min Estimated GFR (MDRD) > 60.0 ml/min Glucose 93 (74-106) mg/dL Calcium 8.0 L (8.5-10.1) mg/dL Med Orders - Current: Current Medications Lactated Ringer's (Ringers, Lactated) 1,000 mls @ 125 mls/hr IV ASDIRECTED [facility] Last Admin: 08/16/20 09:15 Dose: 125 mls/hr Documented by: Ketorolac Tromethamine (Toradol) 30 mg IVPUSH Q6H PRN PRN Reason: Pain (severe 7-10) Stop: 08/21/20 17:31 Last Admin: 08/17/20 02:28 Dose: 30 mg Documented by: Morphine Sulfate (Morphine) 4 mg IVPUSH Q2H PRN PRN Reason: Pain (severe 7-10) Ondansetron HCl (Zofran) 4 mg IVPUSH Q6H PRN PRN Reason: Nausea/Vomiting Last Admin: 08/16/20 18:46 Dose: 4 mg Documented by: Oxycodone/Acetaminophen (Percocet 325-5 Mg) 1 tab PO Q4H PRN PRN Reason: Pain (moderate 4-6) Last Admin: 08/16/20 14:54 Dose: 1 tab Documented by: Oxycodone/Acetaminophen (Percocet 325-5 Mg) 2 tab PO Q4H PRN PRN Reason: Pain (moderate 4-6) Last Admin: 08/17/20 06:51 Dose: 2 tab Documented by: Promethazine HCl (Phenergan) 25 mg IM Q6H PRN PRN Reason: Nausea/Vomiting Sodium Chloride (Saline Flush) 10 ml FLUSH ASDIRECTED PRN PRN Reason: Keep Vein Open Sodium Chloride (Saline Flush) 2.5 ml FLUSH ASDIRECTED PRN PRN Reason: Keep Vein Open Sodium Chloride (Normal Saline) 10 ml IV ASDIRECTED PRN PRN Reason: IV Use Discontinued Medications Cefazolin Sodium (Ancef) Confirm Administered Dose 2 gm .ROUTE .STK-MED ONE Stop: 08/16/20 08:29 Fentanyl (Sublimaze) Confirm Administered Dose 250 mcg .ROUTE .STK-MED ONE Stop: 08/16/20 07:19 Fentanyl (Sublimaze) 50 mcg IVPUSH Q5M PRN PRN Reason: Pain Last Admin: 08/16/20 12:04 Dose: 50 mcg Documented by: Fluorescein Sodium (Ak-Fluor) Confirm Administered Dose 5 ml .ROUTE .STK-MED ONE Stop: 08/16/20 10:55 Furosemide (Lasix) Confirm Administered Dose 40 mg .ROUTE .STK-MED ONE Stop: 08/16/20 10:54 Glycopyrrolate (Robinul) Confirm Administered Dose 0.8 mg .ROUTE .STK-MED ONE Stop: 08/16/20 07:21 Hydromorphone HCl (Dilaudid) Confirm Administered Dose 2 mg .ROUTE .STK-MED ONE Stop: 08/16/20 10:16 Cefazolin Sodium/Dextrose 2 gm (/ Premix) 50 mls @ 100 mls/hr IV ONETIME ONE Stop: 08/13/20 09:42 Acetaminophen 1,000 mg/ Premix 100 mls @ 400 mls/hr IV ONETIME PRN PRN Reason: Pain Last Admin: 08/16/20 11:57 Dose: 400 mls/hr Documented by: Sodium Chloride (Normal Saline) Confirm Administered Dose 20 mls @ as directed .ROUTE .STK-MED ONE Stop: 08/16/20 08:29 Ketorolac Tromethamine (Toradol) Confirm Administered Dose 30 mg .ROUTE .STK-MED ONE Stop: 08/16/20 07:21 Ketorolac Tromethamine (Toradol) 30 mg IVPUSH ONETIME ONE Stop: 08/16/20 11:22 Last Admin: 08/16/20 12:29 Dose: Not Given Documented by: Lidocaine (Xylocaine-Mpf 2%) Confirm Administered Dose 5 ml .ROUTE .STK-MED ONE Stop: 08/16/20 07:21 Midazolam HCl (Versed 1 Mg/Ml) Confirm Administered Dose 2 mg .ROUTE .STK-MED ON E Stop: 08/16/20 07:19 Octyl Cyanoacrylate (Dermabond Advance) Confirm Administered Dose 1 applic .ROUTE .STK-MED ONE Stop: 08/16/20 11:20 Ondansetron HCl (Zofran) Confirm Administered Dose 4 mg .ROUTE .STK-MED ONE Stop: 08/16/20 07:21 Propofol (Diprivan 20 Ml) Confirm Administered Dose 200 mg .ROUTE .STK-MED ONE Stop: 08/16/20 07:19 Rocuronium Converse (Rocuronium Converse) Confirm Administered Dose 50 mg .ROUTE .STK-MED ONE Stop: 08/16/20 07:21 Rocuronium Converse (Rocuronium Converse) Confirm Administered Dose 50 mg .ROUTE .STK-MED ONE Stop: 08/16/20 10:59 - Exam Wound/Incisions: Healing Well General: Alert, Oriented HEENT: Pupils Equal Neck: Supple Lungs: Clear to Auscultation, Normal Respiratory Effort Cardiovascular: Regular Rate, Regular Rhythm GI/Abdominal Exam: Normal Bowel Sounds, Soft, Non-Tender, No Organomegaly, No Distention, No Abnormal Bruit, No Mass, Pelvis Stable Extremities: Normal Inspection, Normal Range of Motion, Non-Tender, No Pedal Edema, Normal Capillary Refill Skin: Warm, Dry, Intact Neurological: No New Focal Deficit Psy/Mental Status: Alert, Normal Affect, Normal Mood Sepsis Event Note - Evaluation Sepsis Screening Result: No Definite Risk - Focused Exam Vital Signs: Vital Signs Temp Pulse Resp BP Pulse Ox 08/17/20 08:00 36.8 C 80 14 115/66 95 08/17/20 06:50 36.4 C 98 17 118/69 96 08/17/20 02:30 36.7 C 78 16 104/60 95 - Problem List Review Problem List Initiated/Reviewed/Updated: Yes - My Orders Last 24 Hours: Active Orders 24 hr Category Date Time Status Patient Status [ADT] Routine ADT 08/16/20 11:21 Active Antiembolic Devices [RC] PER UNIT ROUTINE Care 08/16/20 11:22 Active Notify Provider Vital Signs [RC] ASDIRECTED Care 08/16/20 11:21 Active Oxygen Therapy [RC] ASDIRECTED Care 08/16/20 11:21 Active RT Incentive Spirometry [RC] Q2HWA Care 08/16/20 11:21 Active Up With Assistance [RC] PER UNIT ROUTINE Care 08/16/20 11:21 Active Up ad Marlys [RC] PER UNIT ROUTINE Care 08/16/20 11:21 Active Regular Diet [DIET] Diet 08/16/20 Dinner Active Acetaminophen/oxyCODONE [Percocet 325-5 MG] Med 08/16/20 11:21 Active 1 tab PO Q4H PRN Acetaminophen/oxyCODONE [Percocet 325-5 MG] Med 08/16/20 11:21 Active 2 tab PO Q4H PRN Ketorolac [Toradol] Med 08/16/20 17:30 Active 30 mg IVPUSH Q6H PRN Morphine Med 08/16/20 11:21 Active 4 mg IVPUSH Q2H PRN Ondansetron [Zofran] Med 08/16/20 11:21 Active 4 mg IVPUSH Q6H PRN Promethazine [Phenergan] Med 08/16/20 11:21 Active 25 mg IM Q6H PRN Peripheral IV Discontinue [OM.PC] Routine Oth 08/16/20 11:21 Ordered Sequential Compression Device [OM.PC] Per Unit Routine Oth 08/16/20 11:21 Ord ered Resuscitation Status Routine Resus Stat 08/16/20 11:21 Ordered Medication Orders Lactated Ringer's (Ringers, Lactated) 1,000 mls @ 125 mls/hr IV ASDIRECTED [facility] Last Admin: 08/16/20 09:15 Dose: 125 mls/hr Documented by: HILLARY Ketorolac Tromethamine (Toradol) 30 mg IVPUSH Q6H PRN PRN Reason: Pain (severe 7-10) Stop: 08/21/20 17:31 Last Admin: 08/17/20 02:28 Dose: 30 mg Documented by: Admin: 08/16/20 17:08 Dose: 30 mg Documented by: JUS Morphine Sulfate (Morphine) 4 mg IVPUSH Q2H PRN PRN Reason: Pain (severe 7-10) Ondansetron HCl (Zofran) 4 mg IVPUSH Q6H PRN PRN Reason: Nausea/Vomiting Last Admin: 08/16/20 18:46 Dose: 4 mg Documented by: JUS Oxycodone/Acetaminophen (Percocet 325-5 Mg) 1 tab PO Q4H PRN PRN Reason: Pain (moderate 4-6) Last Admin: 08/16/20 14:54 Dose: 1 tab Documented by: JUS Oxycodone/Acetaminophen (Percocet 325-5 Mg) 2 tab PO Q4H PRN PRN Reason: Pain (moderate 4-6) Last Admin: 08/17/20 06:51 Dose: 2 tab Documented by: Admin: 08/17/20 02:28 Dose: 2 tab Documented by: Admin: 08/16/20 20:18 Dose: 2 tab Documented by: ANGELICA Promethazine HCl (Phenergan) 25 mg IM Q6H PRN PRN Reason: Nausea/Vomiting Sodium Chloride (Saline Flush) 10 ml FLUSH ASDIRECTED PRN PRN Reason: Keep Vein Open Sodium Chloride (Saline Flush) 2.5 ml FLUSH ASDIRECTED PRN PRN Reason: Keep Vein Open Sodium Chloride (Normal Saline) 10 ml IV ASDIRECTED PRN PRN Reason: IV Use - Assessment Assessment (Free Text/Narrative):: Past postoperative laparoscopic hysterectomy postoperative day #1 the patient is doing well her pain is under control she is voiding she is eating she is passing gas. - Plan Plan (Free Text/Narrative):: I'm sending the patient home with the postoperative instruction there is no restriction on her diet the prescription of [place] 5/325 was given for postoperative pain the patient have an appointment to see me in the office in one week
== END 2020-08-17 09:30 | disposition home or self-care (01) ==
LOC: MW.SDS 08:44 → MW.OB 13:34 → MW.SDS 08-17 09:30
PROVIDERS: ATTEND Obstetrics & Gynecology
DX: N87.9 Dysplasia of cervix uteri, unspecified (principal); F41.8 Other specified anxiety disorders; F17.210 Nicotine dependence, cigarettes, uncomplicated; Z88.0 Allergy status to penicillin; Z98.890 Other specified postprocedural states; Z79.899 Other long term (current) drug therapy
CPT/HCPCS: 36415; 58571; 80048; 84703; 85025; 85027; 86850; 86900; 86901; A9270; J0131; J0690; J1170; J1885; J1940; J2001; J2250; J2405; J2704; J3010; J3490; J7120; 88307

== ENCOUNTER 2020-09-15 21:49 | Emergency (ER) | payer MEDICAID ==
[2020-09-15] MEDS ORDERED: Acetaminophen/oxyCODONE 325-5 MG Tab PO ONE (22:29)
--- NOTE | 2020-09-15 22:29 | EDM.PDOC ---
ED HPI GENERAL MEDICAL PROBLEM - General Chief Complaint: Abdominal Pain Stated Complaint: RECENT HYSTERECTOMY, PELVIC PAIN Time Seen by Provider: 09/15/20 22:27 Source of Information: Reports: Patient History Limitations: Reports: No Limitations - History of Present Illness INITIAL COMMENTS - FREE TEXT/NARRATIVE: 29-year-old female who presents for left-sided abdominal pain. Patient states she had a hysterectomy done August 16. Patient states she follow-up with her CLOUD CONSULTANT doctors surgery about her pain but he refuses to address it per patient. Patient that she has pain with eating and also some cramping her belly when urinating. Patient is tried [id number] medication without relief. Patient denies any fever chills blood in urine or blood in stool. Lower left abdomen Pain Score (Numeric/FACES): 8 - Related Data Allergies Allergy/AdvReac Type Severity Reaction Status Date / Time Penicillins Allergy Anaphylactic Verified 09/15/20 22:17 Shock Home Meds: Home Meds . [No Known Home Meds] 08/10/20 [History] Past Medical History HEENT History: Reports: None Cardiovascular History: Reports: None Respiratory History: Reports: None Gastrointestinal History: Reports: None Genitourinary History: Reports: None SANITATION OFFICER History: Reports: Endometriosis, Polycystic Ovaries, Musculoskeletal History: Reports: None Neurological History: Reports: None Psychiatric History: Reports: Anxiety Other Psychiatric History: undiagniosed anxiety Endocrine/Metabolic History: Reports: Obesity/BMI 30+ Hematologic History: Reports: None Immunologic History: Reports: None Oncologic (Cancer) History: Reports: None Dermatologic History: Reports: None - Infectious Disease History Infectious Disease History: Reports: None - Past Surgical History Female Surgical History: Reports: Other (See Below) Other Female Surgeries/Procedures: laparoscopy x2 Social & Family History - Family History Family Medical History: No Pertinent Family History - Caffeine Use Caffeine Use: Reports: Coffee, Energy Drinks ED ROS GENERAL - Review of Systems Review Of Systems: See Below Constitutional: Reports: No Symptoms HEENT: Reports: No Symptoms Respiratory: Reports: No Symptoms Cardiovascular: Reports: No Symptoms Endocrine: Reports: No Symptoms GI/Abdominal: Reports: Abdominal Pain : Reports: No Symptoms Musculoskeletal: Reports: No Symptoms Skin: Reports: No Symptoms Neurological: Reports: No Symptoms Psychiatric: Reports: No Symptoms Hematologic/Lymphatic: Reports: No Symptoms Immunologic: Reports: No Symptoms ED EXAM, GENERAL - Physical Exam Exam: See Below Exam Limited By: No Limitations General Appearance: Alert, No Apparent Distress Eye Exam: Bilateral Eye: EOMI, PERRL Respiratory/Chest: No Respiratory Distress, Lungs Clear, Normal Breath Sounds Cardiovascular: Normal Peripheral Pulses, Regular Rate, Rhythm GI/Abdominal: Normal Bowel Sounds, Soft, Tender Back Exam: Full Range of Motion Neurological: Alert, Oriented, CN II-XII Intact, Normal Cognition, Normal Gait Psychiatric: Normal Affect Course - Vital Signs Last Recorded V/S: Last Vital Signs Temp 97.0 F 09/15/20 22:07 Pulse 92 09/15/20 22:07 Resp 16 09/15/20 22:07 BP 119/87 09/15/20 22:07 Pulse Ox 96 09/15/20 22:07 - Orders/Labs/Meds Labs: Laboratory Tests 09/15/20 09/15/20 09/15/20 Range/Units 22:47 22:47 22:55 WBC 11.21 H (4.0-11.0) K/uL RBC 4.76 (4.30-5.90) M/uL Hgb 14.4 (12.0-16.0) g/dL Hct 42.7 (36.0-46.0) % MCV 89.7 (80.0-98.0) fL MCH 30.3 (27.0-32.0) pg MCHC 33.7 (31.0-37.0) g/dL RDW Std Deviation 41.7 (28.0-62.0) fl RDW Coeff of Maynor 13 (11.0-15.0) % Plt Count 256 (150-400) K/uL MPV 10.10 (7.40-12.00) fL Neut % (Auto) 57.0 (48.0-80.0) % Lymph % (Auto) 30.7 (16.0-40.0) % [place] % (Auto) 8.4 (0.0-15.0) % Eos % (Auto) 3.8 (0.0-7.0) % Baso % (Auto) 0.1 (0.0-1.5) % Neut # (Auto) 6.4 H (1.4-5.7) K/uL Lymph # (Auto) 3.4 H (0.6-2.4) K/uL [place] # (Auto) 0.9 H (0.0-0.8) K/uL Eos # (Auto) 0.4 (0.0-0.7) K/uL Baso # (Auto) 0.0 (0.0-0.1) K/uL Nucleated RBC % 0.0 /100WBC Nucleated RBCs # 0 K/uL Sodium 142 (136-145) mmol/L Potassium 3.8 (3.5-5.1) mmol/L Chloride 106 (98-107) mmol/L Carbon Dioxide 28.6 (21.0-32.0) mmol/L BUN 18 (7.0-18.0) mg/dL Creatinine 0.7 (0.6-1.0) mg/dL Est Cr Clr Drug Dosing 102.40 mL/min Estimated GFR (MDRD) > 60.0 ml/min Glucose 109 H (74-106) mg/dL Calcium 8.7 (8.5-10.1) mg/dL Total Bilirubin 0.4 (0.2-1.0) mg/dL AST 8 L (15-37) IU/L ALT 21 (14-63) IU/L Alkaline Phosphatase 25 L (46-116) U/L Total Protein 6.6 (6.4-8.2) g/dL Albumin 3.8 (3.4-5.0) g/dL Globulin 2.8 (2.6-4.0) g/dL Albumin/Globulin Ratio 1.4 (0.9-1.6) Urine Color YELLOW Urine Appearance CLEAR Urine pH 6.0 (5.0-8.0) Ur Specific [place] 1.025 (1.001-1.035) Urine Protein NEGATIVE (NEGATIVE) mg/dL Urine Glucose (UA) NEGATIVE (NEGATIVE) mg/dL Urine Ketones NEGATIVE (NEGATIVE) mg/dL Urine Occult Blood NEGATIVE (NEGATIVE) Urine Nitrite NEGATIVE (NEGATIVE) Urine Bilirubin NEGATIVE (NEGATIVE) Urine Urobilinogen 1.0 (<2.0) EU/dL Ur Leukocyte Esterase NEGATIVE (NEGATIVE) Meds: Medications Discontinued Medications Generic Name Dose Route Start Last Admin Trade Name Freq PRN Reason Stop Dose Admin Iopamidol 100 ml 09/15/20 23:42 09/15/20 23:44 Isovue Multipack-370 (76%) IVPUSH 09/15/20 23:43 100 ml ONETIME STA Administration Oxycodone/Acetaminophen 1 tab 09/15/20 22:29 09/15/20 22:43 Percocet 325-5 Mg PO 09/15/20 22:30 1 tab ONETIME ONE Administration - Re-Assessments/Exams Free Text/Narrative Re-Assessment/Exam: 09/16/20 00:50 Pt's pain has resolved. Patient CT scan is patient stable for discharge home. Patient will follow up with her PMD this Thursday. Departure - Departure Time of Disposition: 00:52 Disposition: Home, Self-Care 01 Condition: Good Clinical Impression: Abdominal pain - Discharge Information *PRESCRIPTION DRUG MONITORING PROGRAM REVIEWED*: Not Applicable *COPY OF PRESCRIPTION DRUG MONITORING REPORT IN PATIENT MARTINA: Not Applicable Instructions: Abdominal Pain, Adult Referrals: Rita Hughes NEPHROLOGIST [Primary Care Provider] - Forms: ED Department Discharge Additional Instructions: The following information is given to patients seen in the emergency department who are being discharged to home. This information is to outline your options for follow-up care. We provide all patients seen in our emergency department with a follow-up referral. The need for follow-up, as well as the timing and circumstances, are variable depending upon the specifics of your emergency department visit. If you don't have a primary care physician on staff, we will provide you with a referral. We always advise you to contact your personal physician following an emergency department visit to inform them of the circumstance of the visit and for follow-up with them and/or the need for any referrals to a consulting specialist. The emergency department will also refer you to a specialist when appropriate. This referral assures that you have the opportunity for follow-up care with a specialist. All of these measure are taken in an effort to provide you with optimal care, which includes your follow-up. Under all circumstances we always encourage you to contact your private physician who remains a resource for coordinating your care. When calling for follow-up care, please make the office aware that this follow-up is from your recent emergency room visit. If for any reason you are refused follow-up, please contact the [facility] Emergency Department at and asked to speak to the emergency department charge nurse. Please follow up with your primary care physician. If you do not have a primary care physician, see below: [facility] [address] [place] [address] My [facility] [address] [place] [address] Please up with your primary care physician. If you have any worsening pain or nausea vomiting please return to the ED Sepsis Event Note (ED) - Evaluation Sepsis Screening Result: No Definite Risk - Focused Exam Vital Signs: Vital Signs Temp Pulse Resp BP Pulse Ox 09/15/20 22:07 97.0 F 92 16 119/87 96 - Assessment/Plan Plan: Patient is a 29-year-old female presents today for left-sided abdominal pain post hysterectomy. Patient has some left-sided tenderness on examination. Will obtain labs pain control and CT scan abdomen pelvis.
[2020-09-15 23:09] LABS: BLOOD UREA NITROGEN,BUN 18 mg/dL (7.0-18.0); CARBON DIOXIDE,CO2 28.6 mmol/L (21.0-32.0); CHLORIDE,CL 106 mmol/L (98-107); GLUCOSE RANDOM 109 mg/dL (74-106); POTASSIUM,K 3.8 mmol/L (3.5-5.1); SODIUM,NA 142 mmol/L (136-145)
[2020-09-15] MEDS ORDERED: Iopamidol 755 MG/ML 500 ML Multipack Bottle IVPUSH STA (23:42)
--- NOTE | 2020-09-16 00:27 | CT ---
Indication: Lower abdominal pain since hysterectomy on 08/16/2020 Technique: Contrast enhanced axial CT imaging through the abdomen and pelvis. 100 mL Isovue 370 contrast agent was administered intravenously. Sagittal and coronal reconstructions are provided. Comparison: None Findings: No abnormalities are demonstrated relating to the liver, gallbladder, spleen, pancreas, adrenal glands, and kidneys. The portal vein, hepatic veins, and IVC are patent. There is normal caliber of the abdominal aorta. There is no abdominal lymphadenopathy. The stomach and duodenum are unremarkable. There are no abnormally dilated small bowel loops. The appendix is noninflamed. There is mild diverticulosis of the sigmoid colon. There is no colonic wall thickening. There is no mesenteric edema or intraperitoneal free fluid. No abnormality is demonstrated in the hysterectomy bed. The ovaries are not enlarged. No significant free fluid is seen in the pelvis. The osseous structures are unremarkable. The included lung bases are clear. Impression: 1. No acute process demonstrated in the abdomen and pelvis. No abnormality in the hysterectomy bed. 2. Mild diverticulosis of the sigmoid colon without evidence of diverticulitis. Please note that all CT scans at this facility use dose modulation, iterative reconstruction, and/or weight-based dosing when appropriate to reduce radiation dose to as low as reasonably achievable. Dictated by Trice Coppola MD @ Sep 16 2020 12:19AM Signed by Dr. Trice Coppola @ Sep 16 2020 12:27AM
[2020-09-16 01:18] VITALS: BP 128/90; PULSE 79
== END 2020-09-16 00:59 | disposition home or self-care (01) ==
LOC: MW.ED 21:49
DX: R10.32 Left lower quadrant pain (principal); G89.18 Other acute postprocedural pain; E66.9 Obesity, unspecified; Z88.0 Allergy status to penicillin; Z68.31 Body mass index [BMI] 31.0-31.9, adult
CPT/HCPCS: 36415; 74177; 74177-26; 80053; 81003; 85025; 99283; 99284-25; A9270-GY; Q9967

== ENCOUNTER 2020-11-07 06:31 | Day surgery (SDC) | payer MEDICAID ==
[~2020-11-07 06:31] MED LIST changes: -Acetaminophen 1,000 MG in Premix Bag 1 BAG IV PRN; -Glycopyrrolate 0.2 MG/ML SDV ONE; -Ketorolac 30 MG/ML SDV ONE; -Lidocaine 2% 5 ML SDV ONE; -Midazolam 1 MG/ML 2 ML SDV ONE; -Ondansetron 4 MG/2 ML SDV ONE; -Propofol 200 MG/20 ML SDV ONE; -Rocuronium Bromide 50 MG/5 ML Syringe ONE; -Sodium Chloride 0.9% 10 ML SDV IV PRN; -Sodium Chloride 0.9% 10 ML Syringe FLUSH PRN; -Sodium Chloride 0.9% 2.5 ML Syringe FLUSH PRN; -Sodium Chloride 0.9% 20 ML ONE; -ceFAZolin 1 GM Vial ONE; -ceFAZolin 2 GM in Premix Bag 1 BAG IV ONE; -fentaNYL 250 MCG/5 ML SDV ONE
[2020-11-07] MEDS ORDERED: fentaNYL 100 MCG/2 ML SDV ONE (06:59)
[2020-11-07] MEDS ORDERED: Propofol 200 MG/20 ML SDV ONE (06:59)
[2020-11-07] MEDS ORDERED: Midazolam 1 MG/ML 2 ML SDV ONE (06:59)
[2020-11-07] MEDS ORDERED: Lidocaine 2% 5 ML SDV ONE (07:00)
--- NOTE | 2020-11-07 07:16 | PCM.PREANE ---
Preanesthetic Assessment - Anesthesia/Transfusion/Family Hx Anesthesia History: Prior Anesthesia Without Reaction Family History of Anesthesia Reaction: No Transfusion History: No Prior Transfusion(s) Intubation History: Unknown - Review of Systems General: No Symptoms Pulmonary: No Symptoms Cardiovascular: No Symptoms Gastrointestinal: Abdominal Pain, Diarrhea, Hematochezia Neurological: No Symptoms Other: Reports: None - Physical Assessment Vital Signs: Last Vital Signs Temp 36.5 C 11/07/20 07:05 Pulse 80 11/07/20 07:05 Resp 16 11/07/20 07:05 BP 114/72 11/07/20 07:05 Pulse Ox 96 11/07/20 07:05 Height: 5 ft 4 in Weight: 79.832 kg ASA Class: 2 Mental Status: Alert & Oriented x3 Airway Class: Mallampati = 2 Dentition: Reports: Normal Dentition Thyro-Mental Finger Breadths: 3 Mouth Opening Finger Breadths: 3 ROM/Head Extension: Full Lungs: Normal Respiratory Effort, Crackles Cardiovascular: Regular Rate, Regular Rhythm - Allergies Allergies/Adverse Reactions: Allergies Allergy/AdvReac Type Severity Reaction Status Date / Time Penicillins Allergy Anaphylactic Verified 11/07/20 07:05 Shock - Blood Blood Available: No - Anesthesia Plan Pre-Op Medication Ordered: None - Acknowledgements Anesthesia Type Planned: MAC Pt an Appropriate Candidate for the Planned Anesthesia: Yes Alternatives and Risks of Anesthesia Discussed w Pt/Guardian: Yes Pt/Guardian Understands and Agrees with Anesthesia Plan: Yes PreAnesthesia Questionnaire HEENT History: Reports: None Cardiovascular History: Reports: None Respiratory History: Reports: None Gastrointestinal History: Reports: Gastritis Other Gastrointestinal History: hx diverticulitis Genitourinary History: Reports: None TEST GRADER History: Reports: Endometriosis, Polycystic Ovaries, Musculoskeletal History: Reports: None Other Musculoskeletal History: hx fx wrist & foot Neurological History: Reports: None Psychiatric History: Reports: Anxiety Other Psychiatric History: undiagniosed anxiety Endocrine/Metabolic History: Reports: Obesity/BMI 30+ (BMI 30.2) Hematologic History: Reports: None Immunologic History: Reports: None Oncologic (Cancer) History: Reports: None Dermatologic History: Reports: None - Infectious Disease History Infectious Disease History: Reports: Chicken Pox - Past Surgical History Head Surgeries/Procedures: Reports: None HEENT Surgical History: Reports: Adenoidectomy, Tonsillectomy Cardiovascular Surgical History: Reports: None Respiratory Surgical History: Reports: None GI Surgical History: Reports: Appendectomy Female Surgical History: Reports: Hysterectomy, Other (See Below) Other Female Surgeries/Procedures: laparoscopy x2 Endocrine Surgical History: Reports: None Neurological Surgical History: Reports: None Musculoskeletal Surgical History: Reports: None Oncologic Surgical History: Reports: None Dermatological Surgical History: Reports: None - SUBSTANCE USE Tobacco Use Status *Q: Current Every Day Tobacco User (10/15-10/13 ppd) - HOME MEDS Home Medications: Home Meds . [No Known Home Meds] 08/10/20 [History] - CURRENT (IN HOUSE) MEDS Current Meds: Current Medications Lactated Ringer's (Ringers, Lactated) 1,000 mls @ 125 mls/hr IV ASDIRECTED [facility] Last Admin: 11/07/20 07:04 Dose: 125 mls/hr Documented by: Discontinued Medications Fentanyl (Sublimaze) Confirm Administered Dose 100 mcg .ROUTE .STK-MED ONE Stop: 11/07/20 07:00 Lidocaine (Xylocaine-Mpf 2%) Confirm Administered Dose 5 ml .ROUTE .STK-MED ONE Stop: 11/07/20 07:01 Midazolam HCl (Versed 1 Mg/Ml) Confirm Administered Dose 2 mg .ROUTE .STK-MED ONE Stop: 11/07/20 07:00 Propofol (Diprivan 20 Ml) Confirm Administered Dose 400 mg .ROUTE .STK-MED ONE Stop: 11/07/20 07:00
--- NOTE | 2020-11-07 08:30 | PCM.OPNOTE ---
- General Post-Op/Procedure Note Date of Surgery/Procedure: 11/07/20 Operative Procedure(s): egd w bx. colonoscopy w random bx Findings: see [id number] Pre Op Diagnosis: abd pain w BRBPR Post-Op Diagnosis: Same Anesthesia Technique: Moderate Sedation Primary Surgeon: Shane Johnson Pathology: egd bx random colon bx Complications: None Condition: Good
[2020-11-07 08:31] VITALS: BP 115/65; PULSE 89
--- NOTE | 2020-11-07 09:02 | PCM.POSTAN ---
POST ANESTHESIA ASSESSMENT - MENTAL STATUS Mental Status: Alert, Oriented - VITAL SIGNS Vital Signs: Last Vital Signs Temp 36.5 C 11/07/20 07:05 Pulse 89 11/07/20 08:30 Resp 16 11/07/20 08:30 BP 115/65 11/07/20 08:30 Pulse Ox 99 11/07/20 08:30 - RESPIRATORY Respiratory Status: Respiratory Rate WNL, Airway Patent, O2 Saturation Stable - CARDIOVASCULAR CV Status: Pulse Rate WNL, Blood Pressure Stable - GASTROINTESTINAL GI Status: No Symptoms - PAIN Pain Score: 0 - POST OP HYDRATION Hydration Status: Adequate & Stable - OBSERVATIONS Free Text/Narrative:: No anesthesia problems
--- NOTE | 2020-11-07 09:03 | PCM48HPAN ---
Post Anesthesia Note - EVALUATION WITHIN 48HRS OF ANESTHETIC Vital Signs in Normal Range: Yes Patient Participated in Evaluation: Yes Respiratory Function Stable: Yes Airway Patent: Yes Cardiovascular Function Stable: Yes Hydration Status Stable: Yes Pain Control Satisfactory: Yes Nausea and Vomiting Control Satisfactory: Yes Mental Status Recovered: Yes Vital Signs: Last Vital Signs Temp 36.5 C 11/07/20 07:05 Pulse 89 11/07/20 08:30 Resp 16 11/07/20 08:30 BP 115/65 11/07/20 08:30 Pulse Ox 99 11/07/20 08:30 - COMMENTS/OBSERVATIONS Free Text/Narrative:: No anesthesia problems
--- NOTE | 2020-11-07 16:01 | OR ---
SURGEON: Shane Johnson MD DATE OF PROCEDURE: 11/07/2020 PREOPERATIVE DIAGNOSIS: Abdominal pain, bright red blood per rectum. POSTOPERATIVE DIAGNOSES: 1. Esophagogastroduodenoscopy diagnoses: Gastritis and duodenitis. 2. Colonoscopy diagnosis: Hemorrhoid. DESCRIPTION OF PROCEDURE: EGD: The patient was taken to the endoscopy room, and with the SHOW CARD WRITER, Diprivan was administered. A well-lubricated EGD scope was gently inserted through the oropharynx, down the esophagus, passing through the gastroesophageal junction, into the stomach. The mucosa was examined upon the passage. Any etiology will be noted. Once in the stomach, we continued to advance to the distal antrum, passed through the pylorus into the second portion of the duodenum. Again, the mucosa was examined for any abnormality and etiology. The scope was then retrieved back to the stomach and then retroflexed to look at the fundus of the stomach. If a biopsy was indicated, we will biopsy the antrum, body, and gastroesophageal junction. The air will be sucked out while the scope is retrieved to reduce the patient's discomfort. The patient tolerated the procedure well. There were no intraoperative complications. Dr. Johnson was present through the whole procedure. Prior to surgery, a time-out had been called, the patient identified, procedure identified and antibiotic administered. The patient was taken to the endoscopy room. A time out was called, patient identified, and procedure identified. Diprivan was then administrated. Patient went from awake to sleep, hearing doctor talking or door closing is normal. Perineum inspection and digital examination were then performed. A well- lubricated colonoscope was gently inserted through the rectum, advanced past the rectosigmoid junction, the descending colon, splenic flexure, transverse colon, hepatic flexure, ascending colon, arrived to the cecum. Cecum was identified as dictated in the finding. Then the scope was carefully withdrawn while attention was paid to the mucosal surface for any abnormality. Air will be sucked out during the scope withdrawal. At the rectum, retroflexed to examine any rectal diseases, fistula or hemorrhoids. During mucosal examination, abnormality or polyp was noted; picture taken and biopsy performed. Patient tolerated procedure well. There were no intraoperative complications, and Dr. Johnson was present throughout the whole procedure. FINDINGS: EGD findings: 1. The patient is easily sedated with SHOW CARD WRITER and Diprivan, patient is soundly snoring. 2. Oropharynx and proximal esophagus are free of disease, stricture, inflammation, or infection. GE junction at 40 shows minimal salmon-colored change, suggests as almost no acid reflux. Stomach rugae is normal in appearance. Antrum has a couple of particle old blood, probably no significant meaning. No food particle, no bile, no lakeisha ulcer. Duodenum looks grossly normal, however, is very friable, only touch make it bleed, suggests some underlying inflammation. Retroflexed look at the fundus of stomach there is no hiatal hernia. Biopsy done at antrum, body, and GE junction at 40 and sucked out the gas while scope pulling out. Colonoscopy findin. Prior to the scope, I asked the patient if there is any abdominal pain, the patient denied any abdominal pain for weeks. Procedure then proceeded. 2. The patient is easily sedated with SHOW CARD WRITER and Diprivan, the patient is soundly snoring. Bowel prep is average with some liquid stool, no semi- formed stool, no stool ball. 3. Colon is very straightforward. Cecum indicated by ileocecal fold, one-to- one indentation, appendiceal orifice and retroflex as well as the scope guide is pointing south and also light admittance all observed. Mucosa examined upon scope pulling out, and there is no diverticulosis and now CT scan showed diverticulosis, but I failed to see any diverticula. No polyp, mass, growth, inflammation, stricture, ulceration, AV malformation, none of those and stool is yellow in color. Random biopsy done because of abdominal pain. The patient has mild external hemorrhoids and mild internal hemorrhoids, very mild. The patient would benefit from repeat colonoscopy on an as-needed basis as the patient is 29 years old and depends on the pathology of the random colon biopsy. ASHA / RASHIDA /[id number]
== END 2020-11-07 09:05 | disposition home or self-care (01) ==
LOC: MW.SDS 06:31
PROVIDERS: ATTEND Surgery
DX: R19.7 Diarrhea, unspecified (principal); K64.4 Residual hemorrhoidal skin tags; K64.8 Other hemorrhoids; K29.90 Gastroduodenitis, unspecified, without bleeding; K20.90 Esophagitis, unspecified without bleeding; I10 Essential (primary) hypertension; F17.210 Nicotine dependence, cigarettes, uncomplicated; E66.9 Obesity, unspecified; Z68.30 Body mass index [BMI] 30.0-30.9, adult; Z88.0 Allergy status to penicillin; Z79.899 Other long term (current) drug therapy; Z98.890 Other specified postprocedural states; Z90.49 Acquired absence of other specified parts of digestive tract
CPT/HCPCS: 43239; 45380; 81025; J2001; J2250; J2704; J3010; J7120; 00813; 88305; 88312

== ENCOUNTER 2020-12-27 10:05 | Emergency (ER) | payer MEDICAID ==
--- NOTE | 2020-12-27 10:13 | EDM.PDOC ---
ED HPI GENERAL MEDICAL PROBLEM - General Chief Complaint: Back Pain or Injury Stated Complaint: LOWER BACK PAIN Time Seen by Provider: 12/27/20 10:06 Source of Information: Reports: Patient History Limitations: Reports: No Limitations - History of Present Illness INITIAL COMMENTS - FREE TEXT/NARRATIVE: HISTORY AND PHYSICAL: History of present illness: Patient is a 30-year-old female who presents to the emergency room with complaints of lumbar back pain since Thursday. She states Thursday afternoon she was changing the alternator in her jeep when she started to have dull low back pain. Since that time she has had increased pain and has not been getting much rest and not able to ambulate without pain. Pain is across the low lumbar region, bilaterally. Does not radiate, no sciatica. She denies any injury, trauma or falls. She denies any numbness, tingling, saddle paresthesia or weakness. She does have a history of chronic back pain and has used Timbo and Flexeril in the past with good relief. Patient denies any fever, chills, headache, change in vision, syncope or near syncope. Denies any chest pain, back pain, shortness of breath or cough. Denies any GI or symptoms. No concern for . Patient has been eating and drinking appropriately. Review of systems: As per history of present illness and below otherwise all systems reviewed and negative. Past medical history: As per history of present illness and as reviewed below otherwise noncontributory. Surgical history: As per history of present illness and as reviewed below otherwise noncontrib utory. Social history: See social history for further information Family history: As per history of present illness and as reviewed below otherwise noncontributory. Physical exam: General: Well developed and well nourished 30 year old female. Alert and orientated x 3. Nontoxic in appearance and in no acute distress. Vital signs are stable and have been reviewed by me. Nursing notes were reviewed. HEENT: Atraumatic, normocephalic, pupils equal and reactive bilaterally, negative for conjunctival pallor or scleral icterus, mucous membranes moist, trachea midline. No drooling or trismus noted. No meningeal signs. No hot potato voice noted. Lungs: Clear to auscultation bilaterally. No wheezes, rales, or rhonchi. Normal work of breathing, no accessory muscles used. Heart: S1S2, regular rate and rhythm without overt murmur, gallops, or rubs. No JVD. No peripheral edema Abdomen: Soft, nondistended, nontender. No costovertebral tenderness. Skin: Intact, warm, dry. No lesions or rashes noted. Hematologic: No petechiae or purpra. Mucosa appropriate color and normal nail bed color and refill. C-spine/Back: No pinpoint vertebral tenderness upon palpation. No crepitus, step-offs or obvious deformities. Patient is ambulatory into the emergency room without difficulty or deficit. Able to rock back on heels and walk on toes. Denies any urinary or fecal incontinence. Denies any numbness, tingling or saddle paresthesia. No concerns of serious infection, fracture or cord compression, or cauda equina syndrome. Deep tendon reflexes brisk bilaterally. Extremities: Atraumatic, moves all extremities per self without difficulty or deficits. Neurovascular unremarkable. Neuro: Awake, alert, oriented. Cranial nerves II through XII unremarkable. Cerebellum unremarkable. Motor and sensory unremarkable throughout. Exam nonfocal. Psychiatric: Mood and affect are appropriate. Normal thought process. Answering questions appropriately. Notes: *This patient was seen and evaluated during the 2019 SARS-CoV-2 novel coronavirus pandemic period. Community viral transmission is ongoing at time of this encounter and the emergency department is operating under pandemic response procedures. We did discuss doing imaging, she declines at this time. I am agreeable that no x-ray/imaging is warranted. Medication options were reviewed and discussed. I have talked with the patient about today's findings, in addition to providing specific details for plan of care. Reassessment at the time of disposition demonstrates that the patient is in no acute distress. The patient is stable for discharge, counseling was provided and we discussed in great detail signs and symptoms that would prompt them to return to the Emergency Department. Medication, follow up and supportive care measures were reviewed and discussed. Voices understanding and is agreeable to plan of care. Denies any further questions or concerns at this time. Diagnostics: Declines Therapeutics: None Prescription: Timbo (#15), Diclofenac (#30) Impression: Lumbago Plan: 1. When resting please lay on a flat firm surface. Limit your immobility to prevent muscle stiffness. Get up to ambulate/move around/gentle stretching multiple times throughout the day. May alternate heat and ice to the painful areas 2. Tylenol and Ibuprofen as needed for back pain. Diclofenac is an anti- inflammatory so do not take any additional NSAIDs with this medication, such as ibuprofen or Aleve. Timbo is a narcotic, please only take this medication when not working or for night time use. 3. Please follow-up with your primary care provider as we discussed. Return to the ED as needed and as discussed. Definitive disposition and diagnosis as appropriate pending reevaluation and review of above. Onset Date: 12/24/20 Duration: Day(s): Location: Reports: Back - Related Data Allergies Allergy/AdvReac Type Severity Reaction Status Date / Time Penicillins Allergy Anaphylactic Verified 12/27/20 10:20 Shock Home Meds: Home Meds . 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: Reports: Endometriosis, Polycystic Ovaries, Musculoskeletal History: Reports: None Other Musculoskeletal History: hx fx wrist & foot Neurological History: Reports: None Psychiatric History: Reports: Anxiety Other Psychiatric History: undiagniosed anxiety Endocrine/Metabolic History: Reports: Obesity/BMI 30+ (BMI 30.2) Hematologic History: Reports: None Immunologic History: Reports: None Oncologic (Cancer) History: Reports: None Dermatologic History: Reports: None - Infectious Disease History Infectious Disease History: Reports: Chicken Pox - Past Surgical History Head Surgeries/Procedures: Reports: None HEENT Surgical History: Reports: Adenoidectomy, Tonsillectomy Cardiovascular Surgical History: Reports: None Respiratory Surgical History: Reports: None GI Surgical History: Reports: Appendectomy Female Surgical History: Reports: Hysterectomy, Other (See Below) Other Female Surgeries/Procedures: laparoscopy x2 Endocrine Surgical History: Reports: None Neurological Surgical History: Reports: None Musculoskeletal Surgical History: Reports: None Oncologic Surgical History: Reports: None Dermatological Surgical History: Reports: None Social & Family History - Family History Family Medical History: No Pertinent Family History - Caffeine Use Caffeine Use: Reports: Coffee ED ROS GENERAL - Review of Systems Review Of Systems: Comprehensive ROS is negative, except as noted in HPI. ED EXAM,LOWER BACK PAIN/INJURY - Physical Exam Exam: See Below (See dictation) Course - Vital Signs Last Recorded V/S: Last Vital Signs Temp 96.6 F L 12/27/20 10:20 Pulse 79 12/27/20 10:20 Resp 17 12/27/20 10:20 BP 140/86 12/27/20 10:20 Pulse Ox 97 12/27/20 10:20 Departure - Departure Time of Disposition: 10:26 Disposition: Home, Self-Care 01 Clinical Impression: Lumbago Qualifiers: Chronicity: acute Back pain laterality: bilateral Sciatica presence: without sciatica Qualified Code(s): M54.5 - Low back pain - Discharge Information Instructions: Acute Back Pain, Adult Referrals: Rita Hughes NP [Primary Care Provider] - Forms: ED Department Discharge Additional Instructions: The following information is given to patients seen in the emergency department who are being discharged to home. This information is to outline your options for follow-up care. We provide all patients seen in our emergency department with a follow-up referral. The need for follow-up, as well as the timing and circumstances, are variable depending upon the specifics of your emergency department visit. If you don't have a primary care physician on staff, we will provide you with a referral. We always advise you to contact your personal physician following an emergency department visit to inform them of the circumstance of the visit and for follow-up with them and/or the need for any referrals to a consulting specialist. The emergency department will also refer you to a specialist when appropriate. This referral assures that you have the opportunity for follow-up care with a specialist. All of these measure are taken in an effort to provide you with optimal care, which includes your follow-up. Under all circumstances we always encourage you to contact your private physician who remains a resource for coordinating your care. When calling for follow-up care, please make the office aware that this follow-up is from your recent emergency room visit. If for any reason you are refused follow-up, please contact the [facility] Emergency Department at and asked to speak to the emergency department charge nurse. [facility] [address] [place] [id number] [facility] [address] [place] [address] Thank you for choosing the [facility] emergency department in [place] for your medical needs today. It was a pleasure caring for you. Today you were seen in the emergency department for back pain. 1. When resting please lay on a flat firm surface. Limit your immobility to prevent muscle stiffness. Get up to ambulate/move around/gentle stretching multiple times throughout the day. May alternate heat and ice to the painful areas 2. Tylenol and Ibuprofen as needed for back pain. Diclofenac is an anti- inflammatory so do not take any additional NSAIDs with this medication, such as ibuprofen or Aleve. Timbo is a narcotic, please only take this medication when not working or for night time use. 3. Please follow-up with your primary care provider as we discussed. Return to the ED as needed and as discussed. Sepsis Event Note (ED) - Focused Exam Vital Signs: Vital Signs Temp Pulse Resp BP Pulse Ox 12/27/20 10:20 96.6 F L 79 17 140/86 97
[2020-12-27 10:43] VITALS: BP 130/91; PULSE 74
== END 2020-12-27 10:40 | disposition home or self-care (01) ==
LOC: MW.ED 10:05
DX: M54.5 Low back pain (principal); E66.9 Obesity, unspecified; Z68.30 Body mass index [BMI] 30.0-30.9, adult; Z88.0 Allergy status to penicillin
CPT/HCPCS: 99283

== ENCOUNTER 2021-03-04 08:01 | Day surgery (SDC) | payer MEDICAID ==
[2021-03-04] MEDS ORDERED: Bupivacaine 0.25% 10 ML SDV ONE (08:04)
--- NOTE | 2021-03-04 08:31 | PCM.PREANE ---
Preanesthetic Assessment - Anesthesia/Transfusion/Family Hx Anesthesia History: Prior Anesthesia Without Reaction Family History of Anesthesia Reaction: No Transfusion History: No Prior Transfusion(s) Intubation History: Unknown - Review of Systems General: No Symptoms Pulmonary: No Symptoms Cardiovascular: No Symptoms Gastrointestinal: No Symptoms Neurological: No Symptoms Other: Reports: None - Physical Assessment NPO Status Date: 03/04/21 NPO Status Time: 00:01 Vital Signs: Last Vital Signs Temp 97.9 F 03/04/21 08:17 Pulse 82 03/04/21 08:17 Resp 16 03/04/21 08:17 BP 127/74 03/04/21 08:17 Pulse Ox 96 03/04/21 08:17 Height: 5 ft 4 in Weight: 183 lb ASA Class: 2 Mental Status: Alert & Oriented x3 Airway Class: Mallampati = 2 Dentition: Reports: Normal Dentition ROM/Head Extension: Full Lungs: Clear to Auscultation, Normal Respiratory Effort Cardiovascular: Regular Rate, Regular Rhythm - Allergies Allergies/Adverse Reactions: Allergies Allergy/AdvReac Type Severity Reaction Status Date / Time amoxicillin Allergy Anaphylactic Verified 03/04/21 08:30 Shock Penicillins Allergy Anaphylactic Verified 03/04/21 08:30 Shock - Anesthesia Plan Pre-Op Medication Ordered: None - Acknowledgements Anesthesia Type Planned: General Anesthesia Pt an Appropriate Candidate for the Planned Anesthesia: Yes Alternatives and Risks of Anesthesia Discussed w Pt/Guardian: Yes Pt/Guardian Understands and Agrees with Anesthesia Plan: Yes Additional Comments: npo after mn tob 1/2 ppd etoh rare PCOS depression anxiety obeisty bmi 31 par no questions PreAnesthesia Questionnaire HEENT History: Reports: None Cardiovascular History: Reports: None Respiratory History: Reports: None Gastrointestinal History: Reports: Irritable Bowel Syndrome Other Gastrointestinal History: hx diverticulitis Genitourinary History: Reports: None MANAGER SOURCING History: Reports: Endometriosis, , Spontaneous Musculoskeletal History: Reports: Fracture Other Musculoskeletal History: hx fx wrist & foot Neurological History: Reports: None Psychiatric History: Reports: Anxiety Other Psychiatric History: undiagniosed anxiety Endocrine/Metabolic History: Reports: Obesity/BMI 30+ Hematologic History: Reports: None Immunologic History: Reports: None Oncologic (Cancer) History: Reports: None Dermatologic History: Reports: Eczema - Infectious Disease History Infectious Disease History: Reports: Chicken Pox - Past Surgical History Head Surgeries/Procedures: Reports: None HEENT Surgical History: Reports: Adenoidectomy, Tonsillectomy Cardiovascular Surgical History: Reports: None Respiratory Surgical History: Reports: None GI Surgical History: Reports: Appendectomy, Colonoscopy, EGD Female Surgical History: Reports: Hysterectomy, Other (See Below) Other Female Surgeries/Procedures: laparoscopy x4, laparoscopic hysterectomy with jhonathan salpingectomy, cysto Endocrine Surgical History: Reports: None Neurological Surgical History: Reports: None Musculoskeletal Surgical History: Reports: None Oncologic Surgical History: Reports: None Dermatological Surgical History: Reports: None - SUBSTANCE USE Tobacco Use Status *Q: Light Tobacco User - HOME MEDS Home Medications: Home Meds Acetaminophen [Tylenol] 2 tab PO ASDIRECTED PRN 02/26/21 [History] Hydrocodone/Acetaminophen [Hydrocodone-Acetamin 5-325 mg] 1 tab PO ASDIRECTED PRN 02/26/21 [History] Ibuprofen 800 mg PO TID PRN 02/26/21 [History] traMADol HCl [Tramadol HCl] 1 tab PO BEDTIME PRN 02/26/21 [History] - CURRENT (IN HOUSE) MEDS Current Meds: Current Medications Discontinued Medications Bupivacaine HCl (Bupivacaine 0.25% 10 Ml Sdv) Confirm Administered Dose 20 ml .ROUTE .STK-MED ONE Stop: 03/04/21 08:05
[2021-03-04] MEDS ORDERED: Propofol 200 MG/20 ML SDV ONE (08:33)
[2021-03-04] MEDS ORDERED: Midazolam 1 MG/ML 2 ML SDV ONE (08:33)
[2021-03-04] MEDS ORDERED: fentaNYL 250 MCG/5 ML SDV ONE (08:34)
[2021-03-04] MEDS ORDERED: Glycopyrrolate 0.2 MG/ML SDV ONE (08:35)
[2021-03-04] MEDS ORDERED: Ondansetron 4 MG/2 ML SDV ONE (08:35)
[2021-03-04] MEDS ORDERED: Sugammadex Sodium 200 MG/2 ML VIAL ONE (08:35)
[2021-03-04] MEDS ORDERED: Ketorolac 30 MG/ML SDV ONE (08:35)
[2021-03-04] MEDS ORDERED: Lidocaine 2% 5 ML SDV ONE (08:35)
[2021-03-04] MEDS ORDERED: Rocuronium Bromide 50 MG/5 ML Syringe ONE (08:35)
[2021-03-04] MEDS ORDERED: Acetaminophen 1,000 MG in Premix Bag 1 BAG IV PRN (09:58)
[2021-03-04] MEDS ORDERED: fentaNYL 100 MCG/2 ML SDV IVPUSH PRN (09:58)
--- NOTE | 2021-03-04 10:36 | PCM.OPNOTE ---
- General Post-Op/Procedure Note Date of Surgery/Procedure: 03/04/21 Operative Procedure(s): Operative laparoscopy with adhesiolysis and ablation of endometriosis lesions Findings: Intact, mobile vaginal cuff. Small hemosiderin deposits located over bilateral side lam, consistent with endometriosis lesions. Omentum adhesed to left lower pelvis with filmy adhesions noted. Normal appearing right and left ovaries. Pre Op Diagnosis: 1. Endometriosis. 2. Pelvic pain. 3. History of laparoscopic hysterectomy Post-Op Diagnosis: 1. Endometriosis. 2. Pelvic pain. 3. History of laparoscopic hysterectomy Anesthesia Technique: General ET Tube Primary Surgeon: Sherry Choudhury Anesthesia Provider: Milo Dodd Emergency Detail Driver: Ruby Reid Fluid Replacement, Intraop: 1,000 Output, Urine Amount: 5 EBL in mLs: 10 Complications: None known Condition: Good Free Text/Narrative:: Dictation #[id number]
--- NOTE | 2021-03-04 10:57 | PCM.POSTAN ---
POST ANESTHESIA ASSESSMENT - MENTAL STATUS Mental Status: Alert (no anesthetic problems), Oriented - VITAL SIGNS Vital Signs: Last Vital Signs Temp 97.5 F 03/04/21 10:26 Pulse 81 03/04/21 10:52 Resp 22 H 03/04/21 10:52 BP 123/87 03/04/21 10:52 Pulse Ox 77 L 03/04/21 10:52 - RESPIRATORY Respiratory Status: Respiratory Rate WNL, Airway Patent, O2 Saturation Stable - CARDIOVASCULAR CV Status: Pulse Rate WNL, Blood Pressure Stable - GASTROINTESTINAL GI Status: No Symptoms - POST OP HYDRATION Hydration Status: Adequate & Stable
--- NOTE | 2021-03-04 12:08 | OR ---
SURGEON: SHERRY HENSLEY MD DATE OF PROCEDURE: 03/04/2021 PREOPERATIVE DIAGNOSES: 1. Endometriosis. 2. Pelvic pain. 3. History of laparoscopic hysterectomy. POSTOPERATIVE DIAGNOSES: 1. Endometriosis. 2. Pelvic pain. 3. History of laparoscopic hysterectomy. PROCEDURE: Operative laparoscopy with adhesiolysis and ablation of endometriosis lesions. PRIMARY SURGEON: Sherry Hensley MD STAGE SETTINGS PAINTER: Ruby Reid M.D. ANESTHESIOLOGIST: Milo Dodd CRNA ANESTHESIA: General endotracheal. COMPLICATIONS: None known. ESTIMATED BLOOD LOSS: 10 mL. INTRAVENOUS FLUIDS: 1000 mL of crystalloid. URINE OUTPUT: 5 mL of clear urine straight catheterized prior to procedure. INDICATIONS: The patient is a 30-year-old 4, para 2 female with a documented history of endometriosis. She underwent a total laparoscopic hysterectomy with bilateral salpingectomy and conservation of bilateral ovaries in August 2020. However, her pelvic pain continued. She was referred to General Surgery for pain with bowel movements and change in bowel habits. She underwent a colonoscopy in November 2020, which was negative. Due to the patient's history of endometriosis, options for further management were discussed including medical management, surgical with possible adhesiolysis, and ablation of endometriosis lesions versus bilateral oophorectomy. The patient desires to proceed with diagnostic laparoscopy with indicated procedures and medical management at this time. FINDINGS: Intact mobile vaginal cuff, small hemosiderin deposits located over bilateral sidewalls consistent with endometriosis lesions. Omentum adhesed to left lower pelvis with filmy adhesions noted. Normal-appearing right and left ovaries. DESCRIPTION OF PROCEDURE: The patient was taken to the operating room where general endotracheal anesthesia was introduced. NG tube was also inserted for gastric decompression. She was then prepped and draped in dorsal lithotomy position. Bimanual exam was performed. The bladder was drained. A sponge stick was then inserted into the vagina and attention then turned to the abdominal portion of the procedure. Due to the patient's history of multiple laparoscopic procedures, the abdomen was accessed by Torres's point. The nipple line was identified approximately 3 cm below the inferior costal margin and was injected with 3 mL of local anesthetic. A 5 mm incision was then created with a scalpel, and the incision was then dissected down to the layer of the fascia with hemostats. The fascia was then grasped with 2 hemostats, and the fascia was then incised under direct visualization. A 5 mm trocar was then inserted into the incision under direct visualization with the laparoscopic camera. After the trocar was placed under direct visualization into the abdominal cavity, insufflation was then carried out without difficulty. A 5 mm site was also introduced into the left lower quadrant after insertion of local anesthetic. Findings noted as above. The filmy adhesions of the omentum over the left pelvic sidewall were reduced with graspers and minimal effort. Hemostasis was present. After this portion of procedure, the laparoscopic scissors attached to cautery was then used to ablate the bilateral endometriosis lesions after they were noted to be superior to the ureter. Hemostasis was then noted. The abdomen and pelvis were then copiously irrigated, and the pelvis was then suctioned out. After adequate desufflation, all instruments were then removed from the abdomen and incisions closed with 3-0 Monocryl. The patient tolerated this procedure well. Sponge, lap, and needle count were correct x2. Vaginal sponge was then removed from the vagina. The patient was taken to recovery room in stable condition. CELIA / RASHIDA /[id number]
--- NOTE | 2021-03-04 12:18 | PCM48HPAN ---
Post Anesthesia Note - EVALUATION WITHIN 48HRS OF ANESTHETIC Vital Signs in Normal Range: Yes Patient Participated in Evaluation: Yes Respiratory Function Stable: Yes Airway Patent: Yes Cardiovascular Function Stable: Yes Hydration Status Stable: Yes Pain Control Satisfactory: Yes Nausea and Vomiting Control Satisfactory: Yes Mental Status Recovered: Yes Vital Signs: Last Vital Signs Temp 97.5 F 03/04/21 10:26 Pulse 81 03/04/21 10:52 Resp 22 H 03/04/21 10:52 BP 123/87 03/04/21 10:52 Pulse Ox 77 L 03/04/21 10:52
[2021-03-04 13:03] VITALS: BP 139/79; PULSE 74
== END 2021-03-04 12:13 | disposition home or self-care (01) ==
LOC: MW.SDS 08:01
PROVIDERS: ATTEND Obstetrics & Gynecology
DX: N80.9 Endometriosis, unspecified (principal); G89.29 Other chronic pain; I10 Essential (primary) hypertension; N83.291 Other ovarian cyst, right side; F17.210 Nicotine dependence, cigarettes, uncomplicated; E66.9 Obesity, unspecified; Z68.31 Body mass index [BMI] 31.0-31.9, adult; Z79.899 Other long term (current) drug therapy; Z98.890 Other specified postprocedural states; Z88.0 Allergy status to penicillin; Z88.1 Allergy status to other antibiotic agents
CPT/HCPCS: 36415; 58662; 85025; J0131; J1885; J2250; J2405; J2704; J3010; J3490; 00840

== ENCOUNTER 2021-05-22 13:22 | Emergency (ER) | payer BC, MEDICAID ==
--- NOTE | 2021-05-22 14:27 | EDM.PDOC ---
ED HPI GENERAL MEDICAL PROBLEM - General Chief Complaint: Abdominal Pain Stated Complaint: LOWER LEFT SIDE PAIN Time Seen by Provider: 05/22/21 13:36 Source of Information: Reports: Patient History Limitations: Reports: No Limitations - History of Present Illness INITIAL COMMENTS - FREE TEXT/NARRATIVE: HISTORY AND PHYSICAL: History of present illness: Patient is a 30-year-old female, with a history of hysterectomy and endometriosis, who presents emergency room today with concern of left lower quadrant abdominal pain that has been ongoing for 8 to 9 months but has worsened since a diagnostic laparoscopic procedure performed by Dr. Aparicio at [facility] on 03/04/2021. Patient states that she has followed up with Dr. Aparicio on multiple occasions since a diagnostic laparoscopic procedure and has been treated for endometriosis which she states has not alleviated the discomfort. Patient states that the discomfort has been the exact same in pattern in nature since she had her hysterectomy done at the end of 2019 but states that the pain is worsened since she had the laparoscopic procedure in February. Patient states that she has been dealing with this pain every single day and states that at certain times of the day it is worse and she states that it is better when she is working as she is distracted and worse at night when she is trying to sleep. Patient states the pain does periodically wake her up from sleep and states that when the pain is the most severe it does radiate into her vagina. Patient states that Dr. Aparicio had referred her to a pain specialist in [place] and states that she has been on several medications including meloxicam, diclofenac, and states that at one time she did have a dose of tramadol which did help her sleep at night. Patient denies any change in the symptoms today from what has been going on since February. Patient denies any other symptoms or concerns. Patient denies fever, chills, chest pain, shortness of breath, or cough. Denies headache, neck stiff ness, change in vision, syncope, or near syncope. Denies nausea, vomiting, diarrhea, constipation, or dysuria. Has not noted any blood in urine or stool. Patient has been eating and drinking appropriately. Review of systems: As per history of present illness and below otherwise all systems reviewed and negative. Past medical history: As per history of present illness and as reviewed below otherwise noncontributory. Surgical history: As per history of present illness and as reviewed below otherwise noncontributory. Social history: See social history for further information Family history: As per history of present illness and as reviewed below otherwise noncontributory. Physical exam: General: Patient is alert, oriented, and in no acute distress. Patient sitting comfortably on exam table. Vitals stable and reviewed by me. HEENT: Atraumatic, normocephalic, pupils equal and reactive bilaterally, negative for conjunctival pallor or scleral icterus, mucous membranes moist, TMs normal bilaterally, throat clear, neck supple, nontender, trachea midline. No drooling or trismus noted. No meningeal signs. No hot potato voice noted. Lungs: Clear to auscultation, breath sounds equal bilaterally, chest nontender. Heart: S1S2, regular rate and rhythm without overt murmur Abdomen: Soft, nondistended, mild left lower quadrant tenderness without guarding, negative rebound/ahmadi. Negative for masses or hepatosplenomegaly. Negative for costovertebral tenderness. Pelvis: Stable nontender. Genitourinary: Deferred. I did offer patient a exam however she declines at this time with desire to get this done at [facility]. All risks versus benefits discussed with patient and expresses understanding. Rectal: Deferred. Skin: Intact, warm, dry. No lesions or rashes noted. Extremities: Atraumatic, negative for cords or calf pain. Neurovascular unremarkable. Neuro: Awake, alert, oriented. Cranial nerves II through XII unremarkable. Cerebellum unremarkable. Motor and sensory unremarkable throughout. Exam nonfocal. Notes: Patient is a 30-year-old female, with a history of hysterectomy, endometriosis, who presents emergency room today with concern of left lower quadrant abdominal pain that has been daily for the past 8 or 9 months with intermittent episodes of worsening pain. Upon arrival to the ED, patient is vitally stable and well- appearing on exam. Patient does have some mild left lower quadrant tenderness on exam. Upon chart review on 04/08/2021, patient did have a pelvic ultrasound which showed a subcentimeter right ovarian follicle with history of hysterectomy. With normal arterial and venous blood flow to bilateral ovaries. Patient also had a diagnostic laparoscopy done by Dr. Aparicio at [facility] on 03/04/2021 with evidence of endometriosis determined. According to patient, she has been having the left-sided pelvic/abdominal pain since prior to her diagnostic laparoscopy done by Dr. Aparicio on 03/04/2021 but s tates that following the laparoscopy, the pain has been worse and has seen Dr. Aparicio about the pain in follow up appointments. According to patient, she has seen multiple providers about this pain and has had a colonoscopy, labwork, multiple ultrasounds, MRI etc and states that her pain today is the same pain she has been having and is not new or changed. Patient was offered routine lab work to assess for possible acute abdominal pathology, but given longevity of her symptoms and unchanged nature of them for months, acute process is more unlikely which was discussed with patient. Patient declines any lab work today. All risks versus benefits discussed with patient and expresses understanding. Patient states that she is having difficulty staying asleep as the pain will wake her up at night and that Tramadol has helped her in the past. I will provide patient with 15 tabs of tramadol but discussed with patient that she will need to follow up with Dr. Aparicio and her PCP. Strict return precautions thoroughly discussed with patient. Discussed importance for follow-up with Dr. Damon and her primary care provider. Voices understanding and is agreeable to plan of care. Denies any further questions or concerns at this time. Diagnostics: I did offer lab work today in the emergency room but patient declines. All risks versus benefits discussed with patient and expresses understanding. Therapeutics: I did offer pain medication today in the emergency room but patient declines. Prescription: Tramadol (#15) Impression: Left lower quadrant abdominal pain, chronic Plan: 1. Take medication as prescribed. You can also alternate ibuprofen and Tylenol as directed for pain and discomfort. 2. Follow-up with a women's health care provider and primary care provider as discussed. Return to the ED as needed and as discussed. Definitive disposition and diagnosis as appropriate pending reevaluation and review of above. lower abdomen Pain Score (Numeric/FACES): 5 - Related Data Allergies Allergy/AdvReac Type Severity Reaction Status Date / Time amoxicillin Allergy Anaphylactic Verified 05/22/21 13:43 Shock Penicillins Allergy Anaphylactic Verified 05/22/21 13:43 Shock Home Meds: Home Meds traMADol [Ultram] 50 mg PO Q6H PRN #15 tab 05/22/21 [Rx] Past Medical History HEENT History: Reports: None Cardiovascular History: Reports: None Respiratory History: Reports: None Gastrointestinal History: Reports: Irritable Bowel Syndrome Other Gastrointestinal History: hx diverticulitis Genitourinary History: Reports: None 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, , 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 Musculoskeletal History: Reports: Fracture Other Musculoskeletal History: hx fx wrist & foot Neurological History: Reports: None Psychiatric History: Reports: Anxiety Other Psychiatric History: undiagniosed anxiety Endocrine/Metabolic History: Reports: Obesity/BMI 30+ Hematologic History: Reports: None Immunologic History: Reports: None Oncologic (Cancer) History: Reports: None Dermatologic History: Reports: Eczema - Infectious Disease History Infectious Disease History: Reports: Chicken Pox - Past Surgical History Head Surgeries/Procedures: Reports: None HEENT Surgical History: Reports: Adenoidectomy, Tonsillectomy Cardiovascular Surgical History: Reports: None Respiratory Surgical History: Reports: None GI Surgical History: Reports: None, Colonoscopy, EGD Female Surgical History: Reports: Endometrial Ablation, Hysterectomy, Other (See Below) Other Female Surgeries/Procedures: laparoscopy x4, laparoscopic hysterectomy with jhonathan salpingectomy, cysto Endocrine Surgical History: Reports: None Neurological Surgical History: Reports: None Musculoskeletal Surgical History: Reports: None Oncologic Surgical History: Reports: None Dermatological Surgical History: Reports: None Social & Family History - Family History Family Medical History: No Pertinent Family History - Tobacco Use Tobacco Use Status *Q: Current Every Day Tobacco User Years of Tobacco use: 15 Packs/Tins Daily: 1 - Caffeine Use Caffeine Use: Reports: Coffee - Recreational Drug Use Recreational Drug Use: No ED ROS GENERAL - Review of Systems Review Of Systems: Comprehensive ROS is negative, except as noted in HPI. ED EXAM, GENERAL - Physical Exam Exam: See Below (See dictation) Course - Vital Signs Last Recorded V/S: Last Vital Signs Temp 97.2 F 05/22/21 13:43 Pulse 86 05/22/21 13:43 Resp 18 05/22/21 13:43 BP 134/91 H 05/22/21 13:43 Pulse Ox 97 05/22/21 13:43 Departure - Departure Time of Disposition: 14:26 Disposition: Home, Self-Care 01 Clinical Impression: Abdominal pain Qualifiers: Abdominal location: left lower quadrant Qualified Code(s): R10.32 - Left lower quadrant pain - Discharge Information Prescriptions: traMADol [Ultram] 50 mg PO Q6H PRN #15 tab PRN Reason: Pain (Severe 7-10) Referrals: PCP,None [Primary Care Provider] - Forms: ED Department Discharge Additional Instructions: The following information is given to patients seen in the emergency department who are being discharged to home. This information is to outline your options for follow-up care. We provide all patients seen in our emergency department with a follow-up referral. The need for follow-up, as well as the timing and circumstances, are variable depending upon the specifics of your emergency department visit. If you don't have a primary care physician on staff, we will provide you with a referral. We always advise you to contact your personal physician following an emergency department visit to inform them of the circumstance of the visit and for follow-up with them and/or the need for any referrals to a consulting specialist. The emergency department will also refer you to a specialist when appropriate. This referral assures that you have the opportunity for follow-up care with a specialist. All of these measure are taken in an effort to provide you with optimal care, which includes your follow-up. Under all circumstances we always encourage you to contact your private physician who remains a resource for coordinating your care. When calling for follow-up care, please make the office aware that this follow-up is from your recent emergency room visit. If for any reason you are refused follow-up, please contact the [facility] Emergency Department at and asked to speak to the emergency department charge nurse. [facility] [address] [place] [id number] [address] [address] [facility] [address] [place] [address] 1. Take medication as prescribed. You can also alternate ibuprofen and Tylenol as directed for pain and discomfort. 2. Follow-up with a women's health care provider and primary care provider as discussed. Return to the ED as needed and as discussed. Sepsis Event Note (ED) - Focused Exam Vital Signs: Vital Signs Temp Pulse Resp BP Pulse Ox 05/22/21 13:43 97.2 F 86 18 134/91 H 97
[2021-05-22 14:41] VITALS: BP 132/72; PULSE 82
== END 2021-05-22 14:40 | disposition home or self-care (01) ==
LOC: MW.ED 13:22
DX: R10.32 Left lower quadrant pain (principal); G89.29 Other chronic pain; E66.9 Obesity, unspecified; Z88.0 Allergy status to penicillin; Z72.0 Tobacco use; Z68.35 Body mass index [BMI] 35.0-35.9, adult
CPT/HCPCS: 99283

== ENCOUNTER 2021-05-23 19:56 | Emergency (ER) | payer BC, MEDICAID ==
[2021-05-23] MEDS ORDERED: Ketorolac 30 MG/ML SDV IVPUSH ONE (20:14)
--- NOTE | 2021-05-23 20:15 | EDM.PDOC ---
ED HPI GENERAL MEDICAL PROBLEM - General Chief Complaint: Abdominal Pain Stated Complaint: SEVERE ABDOMINAL PAIN Time Seen by Provider: 05/23/21 20:00 Source of Information: Reports: Patient History Limitations: Reports: No Limitations - History of Present Illness INITIAL COMMENTS - FREE TEXT/NARRATIVE: Patient is a 30-year-old female history of endometriosis presents today for left lower quadrant pain. Patient that she had a revision of some sort of a hysterectomy back in April and since then has had increased pain in the left lower quadrant around the surgical site. Patient she is eating and drinking okay and has no nausea vomiting fever chills but is nagging pain. States that the makes the pain better or worse. He has not tried any medicine for the pain at home. Left Lower Pelvic Pain Score (Numeric/FACES): 6 - Related Data Allergies Allergy/AdvReac Type Severity Reaction Status Date / Time amoxicillin Allergy Anaphylactic Verified 05/22/21 13:43 Shock Penicillins Allergy Anaphylactic Verified 05/22/21 13:43 Shock Home Meds: Home Meds traMADol [Ultram] 50 mg PO Q6H PRN #15 tab 05/22/21 [Rx] Past Medical History HEENT History: Reports: None Cardiovascular History: Reports: None Respiratory History: Reports: None Gastrointestinal History: Reports: Irritable Bowel Syndrome Other Gastrointestinal History: hx diverticulitis Genitourinary History: Reports: None 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, , 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 Musculoskeletal History: Reports: Fracture Other Musculoskeletal History: hx fx wrist & foot Neurological History: Reports: None Psychiatric History: Reports: Anxiety Other Psychiatric History: undiagniosed anxiety Endocrine/Metabolic History: Reports: Obesity/BMI 30+ Hematologic History: Reports: None Immunologic History: Reports: None Oncologic (Cancer) History: Reports: None Dermatologic History: Reports: Eczema - Infectious Disease History Infectious Disease History: Reports: Chicken Pox - Past Surgical History Head Surgeries/Procedures: Reports: None HEENT Surgical History: Reports: Adenoidectomy, Tonsillectomy Cardiovascular Surgical History: Reports: None Respiratory Surgical History: Reports: None GI Surgical History: Reports: None, Colonoscopy, EGD Female Surgical History: Reports: Endometrial Ablation, Hysterectomy, Other (See Below) Other Female Surgeries/Procedures: laparoscopy x4, laparoscopic hysterectomy with jhonathan salpingectomy, cysto Endocrine Surgical History: Reports: None Neurological Surgical History: Reports: None Musculoskeletal Surgical History: Reports: None Oncologic Surgical History: Reports: None Dermatological Surgical History: Reports: None Social & Family History - Family History Family Medical History: No Pertinent Family History - Caffeine Use Caffeine Use: Reports: Coffee - Recreational Drug Use Recreational Drug Use: No ED ROS GENERAL - Review of Systems Review Of Systems: See Below Constitutional: Reports: No Symptoms HEENT: Reports: No Symptoms Respiratory: Reports: No Symptoms Cardiovascular: Reports: No Symptoms Endocrine: Reports: No Symptoms GI/Abdominal: Reports: Abdominal Pain : Reports: No Symptoms Musculoskeletal: Reports: No Symptoms Skin: Reports: No Symptoms Neurological: Reports: No Symptoms Psychiatric: Reports: No Symptoms Hematologic/Lymphatic: Reports: No Symptoms Immunologic: Reports: No Symptoms ED EXAM, GI/ABD - Physical Exam Exam: See Below Exam Limited By: No Limitations General Appearance: Alert, WD/WN, No Apparent Distress Eyes: Bilateral: EOMI Throat/Mouth: Normal Inspection Head: Atraumatic Respiratory/Chest: No Respiratory Distress, Lungs Clear, Normal Breath Sounds Cardiovascular: Normal Peripheral Pulses, Regular Rate, Rhythm GI/Abdominal Exam: Normal Bowel Sounds, Soft, Tender (LLQ) Extremities: Normal Inspection, Normal Range of Motion Neurological: Alert, Oriented, Normal Cognition, Normal Gait Course - Vital Signs Last Recorded V/S: Last Vital Signs Temp 98.0 F 05/23/21 22:24 Pulse 84 05/23/21 22:24 Resp 18 05/23/21 22:24 BP 111/71 05/23/21 22:24 Pulse Ox 97 05/23/21 22:24 - Orders/Labs/Meds Labs: Laboratory Tests 05/23/21 05/23/21 05/23/21 Range/Units 20:28 20:28 20:28 WBC 9.41 (4.0-11.0) K/uL RBC 4.73 (4.30-5.90) M/uL Hgb 14.6 (12.0-16.0) g/dL Hct 41.4 (36.0-46.0) % MCV 87.5 (80.0-98.0) fL MCH 30.9 (27.0-32.0) pg MCHC 35.3 (31.0-37.0) g/dL RDW Std Deviation 39.9 (28.0-62.0) fl RDW Coeff of Maynor 12 (11.0-15.0) % Plt Count 265 (150-400) K/uL MPV 9.80 (7.40-12.00) fL Neut % (Auto) 57.7 (48.0-80.0) % Lymph % (Auto) 30.9 (16.0-40.0) % Emanuel % (Auto) 6.6 (0.0-15.0) % Eos % (Auto) 4.6 (0.0-7.0) % Baso % (Auto) 0.2 (0.0-1.5) % Neut # (Auto) 5.4 (1.4-5.7) K/uL Lymph # (Auto) 2.9 H (0.6-2.4) K/uL Emanuel # (Auto) 0.6 (0.0-0.8) K/uL Eos # (Auto) 0.4 (0.0-0.7) K/uL Baso # (Auto) 0.0 (0.0-0.1) K/uL Nucleated RBC % 0.0 /100WBC Nucleated RBCs # 0 K/uL Sodium 144 (136-145) mmol/L Potassium 3.7 (3.5-5.1) mmol/L Chloride 104 (98-107) mmol/L Carbon Dioxide 33.8 H (21.0-32.0) mmol/L BUN 19 H (7.0-18.0) mg/dL Creatinine 0.9 (0.6-1.0) mg/dL Est Cr Clr Drug Dosing TNP Estimated GFR (MDRD) > 60.0 ml/min Glucose 92 (74-106) mg/dL Calcium 8.5 (8.5-10.1) mg/dL Total Bilirubin 0.7 (0.2-1.0) mg/dL AST 14 L (15-37) IU/L ALT 25 (14-63) IU/L Alkaline Phosphatase 24 L (46-116) U/L Creatine Kinase 117 (26-308) U/L Total Protein 6.5 (6.4-8.2) g/dL Albumin 3.9 (3.4-5.0) g/dL Globulin 2.6 (2.6-4.0) g/dL Albumin/Globulin Ratio 1.5 (0.9-1.6) Urine Color YELLOW Urine Appearance CLOUDY Urine pH 7.5 (5.0-8.0) Ur Specific [place] 1.015 (1.001-1.035) Urine Protein NEGATIVE (NEGATIVE) mg/dL Urine Glucose (UA) NEGATIVE (NEGATIVE) mg/dL Urine Ketones NEGATIVE (NEGATIVE) mg/dL Urine Occult Blood NEGATIVE (NEGATIVE) Urine Nitrite NEGATIVE (NEGATIVE) Urine Bilirubin NEGATIVE (NEGATIVE) Urine Urobilinogen 1.0 (<2.0) EU/dL Ur Leukocyte Esterase NEGATIVE (NEGATIVE) Meds: Medications Discontinued Medications Generic Name Dose Route Start Last Admin Trade Name Micheleq PRN Reason Stop Dose Admin Iopamidol 100 ml 05/23/21 22:04 05/23/21 22:05 Iopamidol 755 Mg/Ml 500 Ml Multipack Bottle IVPUSH 05/23/21 22:05 100 ml ONETIME STA Administration Ketorolac Tromethamine 30 mg 05/23/21 20:14 05/23/21 20:21 Ketorolac 30 Mg/Ml Sdv IVPUSH 05/23/21 20:15 30 mg ONETIME ONE Administration - Re-Assessments/Exams Free Text/Narrative Re-Assessment/Exam: 05/23/21 22:[address] scan has not showing any cause of patient's pain. Patient labs reviewed patient looks well on exam will be discharged home to continue to follow with pain management. Departure - Departure Time of Disposition: 22:46 Disposition: Home, Self-Care 01 Condition: Good Clinical Impression: Unspecified abdominal pain Qualifiers: Abdominal location: left lower quadrant Qualified Code(s): R10.32 - Left lower quadrant pain - Discharge Information *PRESCRIPTION DRUG MONITORING PROGRAM REVIEWED*: Not Applicable *COPY OF PRESCRIPTION DRUG MONITORING REPORT IN PATIENT MARTINA: Not Applicable Instructions: Abdominal Pain, Adult, [id number] Referrals: Rita Hughes NP [Primary Care Provider] - Forms: ED Department Discharge Additional Instructions: The following information is given to patients seen in the emergency department who are being discharged to home. This information is to outline your options for follow-up care. We provide all patients seen in our emergency department with a follow-up referral. The need for follow-up, as well as the timing and circumstances, are variable depending upon the specifics of your emergency department visit. If you don't have a primary care physician on staff, we will provide you with a referral. We always advise you to contact your personal physician following an emergency department visit to inform them of the circumstance of the visit and for follow-up with them and/or the need for any referrals to a consulting specialist. The emergency department will also refer you to a specialist when appropriate. This referral assures that you have the opportunity for follow-up care with a specialist. All of these measure are taken in an effort to provide you with optimal care, which includes your follow-up. Under all circumstances we always encourage you to contact your private physician who remains a resource for coordinating your care. When calling for follow-up care, please make the office aware that this follow-up is from your recent emergency room visit. If for any reason you are refused follow-up, please contact the [facility] Emergency Department at and asked to speak to the emergency department charge nurse. Please follow up with your primary care physician. If you do not have a primary care physician, see below: [facility] [address] [place] [id number] [facility] [address] [place] [id number] You were seen today for abdominal pain. We did labs a CAT scan did not show any source of your pain. We understand you are seeing pain management and recommend you continue to see them for this. If you have any other concerning signs or symptoms please feel free to return to the ED otherwise continue to follow-up with your primary care physician. Sepsis Event Note (ED) - Focused Exam Vital Signs: Vital Signs Temp Pulse Resp BP Pulse Ox 05/23/21 22:24 98.0 F 84 18 111/71 97 05/23/21 21:33 87 18 112/54 L 97 05/23/21 20:40 78 18 121/71 98 05/23/21 20:03 98.4 F 84 16 133/64 95 - Assessment/Plan Plan: Patient is a 30-year-old female who presents today for left lower quadrant pain. Patient has some type of revision done to her previous surgery back in March and since that time has had increased pain. Patient is an looks well there is some slight tenderness to the left lower quadrant. We will obtain labs provide pain control and get a CAT scan area and reassess patient.
[2021-05-23 21:00] LABS: BLOOD UREA NITROGEN,BUN 19 mg/dL (7.0-18.0); CARBON DIOXIDE,CO2 33.8 mmol/L (21.0-32.0); CHLORIDE,CL 104 mmol/L (98-107); GLUCOSE RANDOM 92 mg/dL (74-106); POTASSIUM,K 3.7 mmol/L (3.5-5.1); SODIUM,NA 144 mmol/L (136-145)
[2021-05-23] MEDS ORDERED: Iopamidol 755 MG/ML 500 ML Multipack Bottle IVPUSH STA (22:04)
--- NOTE | 2021-05-23 22:41 | CT ---
INDICATION: Left lower quadrant pain, status post surgery. TECHNIQUE: Axial images were obtained from the diaphragm to the pubic symphysis. Reformats were obtained in the coronal and sagittal plane. IV Contrast: 100 cc Isovue 370 Oral Contrast: None COMPARISON: Abdomen and pelvis CT 09/15/2020 FINDINGS: Lower chest: Unremarkable. Liver: Unremarkable. Normal in size and attenuation. No masses. Gallbladder and bile ducts: Gallbladder is contracted. Spleen: Unremarkable. Normal in size without mass. Pancreas: Unremarkable. No mass or inflammation. Adrenal glands: Unremarkable. No nodules. Kidneys: Unremarkable. No masses, stones, or hydronephrosis. Vasculature: Unremarkable. GI tract: The stomach is unremarkable. No dilated loops of large or small intestine. Appendix unremarkable. Colonic diverticulosis without localizing inflammation. Pelvis: Status post hysterectomy. No adnexal mass. Bones: Unremarkable for age. IMPRESSION: 1. Colonic diverticulosis without lakeisha diverticulitis. 2. Status post hysterectomy. Please note that all CT scans at this facility use dose modulation, iterative reconstruction, and/or weight-based dosing when appropriate to reduce radiation dose to as low as reasonably achievable. Dictated by Jose A Green MD @ 05/23/2021 10:40:[address] Jose A Green @ May 23 2021 10:40PM
[2021-05-23 23:01] VITALS: BP 123/81; PULSE 82
== END 2021-05-23 23:00 | disposition home or self-care (01) ==
LOC: MW.ED 19:56
DX: R10.32 Left lower quadrant pain (principal); E66.9 Obesity, unspecified; Z87.42 Personal history of other diseases of the female genital tract; Z90.710 Acquired absence of both cervix and uterus; Z88.0 Allergy status to penicillin; Z68.30 Body mass index [BMI] 30.0-30.9, adult
CPT/HCPCS: 36415; 74177; 80053; 81003; 82550; 85025; 96374; 99284; J1885; Q9967

== ENCOUNTER 2021-06-23 21:12 | Emergency (ER) | payer BC | END 2021-06-23 22:02 | disposition left against medical advice (07) | LOC: MW.ED 21:12 | DX: Z53.21 Procedure and treatment not carried out due to patient leaving prior to being seen by health care provider (principal) ==

== ENCOUNTER 2021-08-09 09:26 | Emergency (ER) | payer BC, MEDICAID ==
[2021-08-09] MEDS ORDERED: Sodium Chloride 0.9% 1,000 ML IV ONE ×2 (10:03→10:40)
--- NOTE | 2021-08-09 10:30 | EDM.PDOC ---
ED HPI GENERAL MEDICAL PROBLEM - General Chief Complaint: Abdominal Pain Stated Complaint: DARK STOOLS Time Seen by Provider: 08/09/21 10:01 Source of Information: Reports: Patient History Limitations: Reports: No Limitations - History of Present Illness INITIAL COMMENTS - FREE TEXT/NARRATIVE: HISTORY AND PHYSICAL: History of present illness: Patient is a 30-year-old female, with a h/o hysterectomy, who presents emergency room today with concern of possible blood in her stool over the past 2 to 3 days with associated RLQ abdominal pain. Patient states that she is having 1-2 bowel movements a day and states that they are dark and tarry in consistency. Patient states that she does have a history of left lower quadrant abdominal pain secondary to endometriosis and postop discomfort and is in the process of following with [facility] for further treatment consideration but the pain over the past 2-3 days is quite different than her chronic LLQ pain and also involves the RLQ. Patient states that she did have a colonoscopy 1 year ago and states that it was unremarkable. Patient states that she started noticing the dark stools 2 to 3 days ago and states that her last bowel movement was this morning and states that it was dark and tarry. Patient states that she has not taken anything for her symptoms. Patient states that she does have associated nausea, decreased appetite, and dizziness. Patient denies fever, chills, chest pain, shortness of breath, or cough. Denies headache, neck stiff ness, change in vision, syncope, or near syncope. Denies vomiting, diarrhea, constipation, or dysuria. Has not noted any blood in urine. Patient has been eating and drinking appropriately. Review of systems: As per history of present illness and below otherwise all systems reviewed and negative. Past medical history: As per history of present illness and as reviewed below otherwise noncontributory. Surgical history: As per history of present illness and as reviewed below otherwise noncontributory. Social history: See social history for further information Family history: As per history of present illness and as reviewed below otherwise noncontributory. Physical exam: General: Patient is alert, oriented, and in no acute distress. Patient sitting comfortably on exam table. Vitals stable and reviewed by me. HEENT: Atraumatic, normocephalic, pupils equal and reactive bilaterally, negative for conjunctival pallor or scleral icterus, mucous membranes moist, TMs normal bilaterally, throat clear, neck supple, nontender, trachea midline. No drooling or trismus noted. No meningeal signs. No hot potato voice noted. Lungs: Clear to auscultation, breath sounds equal bilaterally, chest nontender. Heart: S1S2, regular rate and rhythm without overt murmur Abdomen: Soft, nondistended, mild RLQ/LLQ tenderness without guarding, negative ahmadi/rebound. Negative for masses or hepatosplenomegaly. Negative for costovertebral tenderness. Pelvis: Stable nontender. Genitourinary: Deferred. Rectal: Sausage Maker at bedside Rosario Dewitt RN. Rectal tone intact. No obvious hemorrhoids, masses, lesions noted. Hemoccult negative. Brown stool, no melena or bright red blood. Skin: Intact, warm, dry. No lesions or rashes noted. Extremities: Atraumatic, negative for cords or calf pain. Neurovascular unremarkable. Neuro: Awake, alert, oriented. Cranial nerves II through XII unremarkable. Cerebellum unremarkable. Motor and sensory unremarkable throughout. Exam nonfocal. Notes: Patient is a 30-year-old female, with a history of chronic left lower quadrant pain secondary to hysterectomy/endometriosis, who presents emergency room today with concern of dark tarry stools x2 to 3 days with associated nausea, decreased appetite and dizziness. Upon arrival to the ED, patient is vitally stable and well-appearing on exam. Hemoccult is negative on exam and rectal exam is otherwise unremarkable. Patient does have brown stool on exam. Patient does have mild RLQ and LLQ pain on exam. On chart review, patient was seen in the emergency room on 05/23/2021 secondary to chronic left lower quadrant abdominal pain. At that time, patient did have an abdominal pelvic CT scan with contrast that showed colonic diverticulosis without lakeisha diverticulitis. Status post hysterectomy. No acute findings. CBC does show mild leukocytosis of 11.55 (given mild leukocytosis will obtain CT Abd/Pelvis), otherwise mild derangements of CBC unremarkable. CMP does show isolated elevation of total bili at 1.5, otherwise mild derangements of CMP unremarkable. Troponin negative. Lipase within normal limits. Urinalysis clear of infection. Abdominal pelvic CT scan shows demonstration of nonspecific fluid-filled loops of central small bowel which may represent mild enteritis changes. Minimal colonic diverticulosis of the descending and sigmoid colon which overall decompressed appearance. No inflammatory changes are identified. Mild thickening of the gastric antrum commensurate which likely chronic gastritis changes. Otherwise, no definite acute intra-abdominal abnormality. Appendix normal. Upon reevaluation of patient, she remains vitally stable and comfortable throughout stay in ED. Strict return precautions thoroughly discussed with patient. Discussed importance for follow-up with a primary care provider. Voices understanding and is agreeable to plan of care. Denies any further questions or concerns at this time. Diagnostics: EKG, CBC, CMP, UA, Trop, Abd/Pelvic ct w cont Therapeutics: NS, Protonix Prescription: Omeprazole Impression: Gastritis Enteritis Abdominal pain Plan: 1. Take medication as prescribed. You can also use Tylenol as directed for pain and discomfort. Avoid any NSAID medications such as ibuprofen, naproxen, Aleve, or aspirin until you have followed up with your primary care provider for further management. 2. Follow-up with a primary care provider as discussed. Return to the ED as needed and as discussed. Definitive disposition and diagnosis as appropriate pending reevaluation and review of above. abdomen Pain Score (Numeric/FACES): 7 - Related Data Allergies Allergy/AdvReac Type Severity Reaction Status Date / Time amoxicillin Allergy Anaphylactic Verified 08/09/21 09:55 Shock Penicillins Allergy Anaphylactic Verified 08/09/21 09:55 Shock Home Meds: Home Meds Omeprazole 40 mg PO DAILY 14 Days #14 capsule. 08/09/21 [Rx] Past Medical History HEENT History: Reports: None Cardiovascular History: Reports: None Respiratory History: Reports: None Gastrointestinal History: Reports: Irritable Bowel Syndrome Other Gastrointestinal History: hx diverticulitis Genitourinary History: Reports: None DIRECTOR AUTO History: Reports: Endometriosis, , Spontaneous Musculoskeletal History: Reports: Fracture Other Musculoskeletal History: hx fx wrist & foot Neurological History: Reports: None Psychiatric History: Reports: Anxiety Other Psychiatric History: undiagniosed anxiety Endocrine/Metabolic History: Reports: None Hematologic History: Reports: None Immunologic History: Reports: None Oncologic (Cancer) History: Reports: None Dermatologic History: Reports: Eczema - Infectious Disease History Infectious Disease History: Reports: Chicken Pox - Past Surgical History Head Surgeries/Procedures: Reports: None HEENT Surgical History: Reports: Adenoidectomy, Tonsillectomy Cardiovascular Surgical History: Reports: None Respiratory Surgical History: Reports: None GI Surgical History: Reports: None, Colonoscopy, EGD Female Surgical History: Reports: Endometrial Ablation, Hysterectomy, Other (See Below) Other Female Surgeries/Procedures: laparoscopy x4, laparoscopic hysterectomy with jhonathan salpingectomy, cysto Endocrine Surgical History: Reports: None Neurological Surgical History: Reports: None Musculoskeletal Surgical History: Reports: None Oncologic Surgical History: Reports: None Dermatological Surgical History: Reports: None Social & Family History - Family History Family Medical History: No Pertinent Family History - Tobacco Use Tobacco Use Status *Q: Current Every Day Tobacco User Years of Tobacco use: 10 Packs/Tins Daily: 0.5 - Caffeine Use Caffeine Use: Reports: None - Recreational Drug Use Recreational Drug Use: No ED ROS GENERAL - Review of Systems Review Of Systems: Comprehensive ROS is negative, except as noted in HPI. ED EXAM, GENERAL - Physical Exam Exam: See Below (see dictation) Course - Vital Signs Last Recorded V/S: Last Vital Signs Temp 97.8 F 08/09/21 09:57 Pulse 65 08/09/21 12:54 Resp 16 08/09/21 12:54 BP 118/72 08/09/21 12:54 Pulse Ox 98 08/09/21 12:54 - Orders/Labs/Meds Labs: Laboratory Tests 08/09/21 08/09/21 08/09/21 Range/Units 10:05 10:15 10:15 WBC 11.55 H (4.0-11.0) K/uL RBC 5.16 (4.30-5.90) M/uL Hgb 16.1 H (12.0-16.0) g/dL Hct 45.5 (36.0-46.0) % MCV 88.2 (80.0-98.0) fL MCH 31.2 (27.0-32.0) pg MCHC 35.4 (31.0-37.0) g/dL RDW Std Deviation 41.0 (28.0-62.0) fl RDW Coeff of Maynor 13 (11.0-15.0) % Plt Count 278 (150-400) K/uL MPV 9.90 (7.40-12.00) fL Neut % (Auto) 72.3 (48.0-80.0) % Lymph % (Auto) 19.0 (16.0-40.0) % [place] % (Auto) 5.7 (0.0-15.0) % Eos % (Auto) 2.9 (0.0-7.0) % Baso % (Auto) 0.1 (0.0-1.5) % Neut # (Auto) 8.3 H (1.4-5.7) K/uL Lymph # (Auto) 2.2 (0.6-2.4) K/uL [place] # (Auto) 0.7 (0.0-0.8) K/uL Eos # (Auto) 0.3 (0.0-0.7) K/uL Baso # (Auto) 0.0 (0.0-0.1) K/uL Nucleated RBC % 0.0 /100WBC Nucleated RBCs # 0 K/uL Sodium 140 (136-145) mmol/L Potassium 3.7 (3.5-5.1) mmol/L Chloride 101 (98-107) mmol/L Carbon Dioxide 28.2 (21.0-32.0) mmol/L BUN 13 (7.0-18.0) mg/dL Creatinine 0.9 (0.6-1.0) mg/dL Est Cr Clr Drug Dosing 78.93 mL/min Estimated GFR (MDRD) > 60.0 ml/min Glucose 100 (74-106) mg/dL Calcium 9.7 (8.5-10.1) mg/dL Total Bilirubin 1.5 H (0.2-1.0) mg/dL AST 19 (15-37) IU/L ALT 32 (14-63) IU/L Alkaline Phosphatase 17 L (46-116) U/L Troponin I (0.000-0.056) ng/mL Total Protein 7.9 (6.4-8.2) g/dL Albumin 4.3 (3.4-5.0) g/dL Globulin 3.6 (2.6-4.0) g/dL Albumin/Globulin Ratio 1.2 (0.9-1.6) Lipase 150 (73-393) U/L Urine Color YELLOW Urine Appearance SLT CLOUDY Urine pH 8.0 (5.0-8.0) Ur Specific [place] 1.015 (1.001-1.035) Urine Protein NEGATIVE (NEGATIVE) mg/dL Urine Glucose (UA) NEGATIVE (NEGATIVE) mg/dL Urine Ketones NEGATIVE (NEGATIVE) mg/dL Urine Occult Blood NEGATIVE (NEGATIVE) Urine Nitrite NEGATIVE (NEGATIVE) Urine Bilirubin NEGATIVE (NEGATIVE) Urine Urobilinogen 1.0 (<2.0) EU/dL Ur Leukocyte Esterase NEGATIVE (NEGATIVE) 08/09/21 Range/Units 10:15 WBC (4.0-11.0) K/uL RBC (4.30-5.90) M/uL Hgb (12.0-16.0) g/dL Hct (36.0-46.0) % MCV (80.0-98.0) fL MCH (27.0-32.0) pg MCHC (31.0-37.0) g/dL RDW Std Deviation (28.0-62.0) fl RDW Coeff of Maynor (11.0-15.0) % Plt Count (150-400) K/uL MPV (7.40-12.00) fL Neut % (Auto) (48.0-80.0) % Lymph % (Auto) (16.0-40.0) % [place] % (Auto) (0.0-15.0) % Eos % (Auto) (0.0-7.0) % Baso % (Auto) (0.0-1.5) % Neut # (Auto) (1.4-5.7) K/uL Lymph # (Auto) (0.6-2.4) K/uL [place] # (Auto) (0.0-0.8) K/uL Eos # (Auto) (0.0-0.7) K/uL Baso # (Auto) (0.0-0.1) K/uL Nucleated RBC % /100WBC Nucleated RBCs # K/uL Sodium (136-145) mmol/L Potassium (3.5-5.1) mmol/L Chloride (98-107) mmol/L Carbon Dioxide (21.0-32.0) mmol/L BUN (7.0-18.0) mg/dL Creatinine (0.6-1.0) mg/dL Est Cr Clr Drug Dosing mL/min Estimated GFR (MDRD) ml/min Glucose (74-106) mg/dL Calcium (8.5-10.1) mg/dL Total Bilirubin (0.2-1.0) mg/dL AST (15-37) IU/L ALT (14-63) IU/L Alkaline Phosphatase (46-116) U/L Troponin I < 0.050 (0.000-0.056) ng/mL Total Protein (6.4-8.2) g/dL Albumin (3.4-5.0) g/dL Globulin (2.6-4.0) g/dL Albumin/Globulin Ratio (0.9-1.6) Lipase (73-393) U/L Urine Color Urine Appearance Urine pH (5.0-8.0) Ur Specific [place] (1.001-1.035) Urine Protein (NEGATIVE) mg/dL Urine Glucose (UA) (NEGATIVE) mg/dL Urine Ketones (NEGATIVE) mg/dL Urine Occult Blood (NEGATIVE) Urine Nitrite (NEGATIVE) Urine Bilirubin (NEGATIVE) Urine Urobilinogen (<2.0) EU/dL Ur Leukocyte Esterase (NEGATIVE) Meds: Medications Discontinued Medications Generic Name Dose Route Start Last Admin Trade Name Freq PRN Reason Stop Dose Admin Sodium Chloride 1,000 mls @ 999 mls/hr 08/09/21 10:03 08/09/21 10:25 Normal Saline IV 08/09/21 11:03 Not Given BOLUS ONE Sodium Chloride 1,000 mls @ 999 mls/hr 08/09/21 10:40 08/09/21 11:19 Normal Saline IV 08/09/21 11:40 999 mls/hr STAT ONE Administration Pantoprazole Sodium 80 mg/ 20 mls @ 420 mls/hr 08/09/21 10:40 08/09/21 11:19 Sodium Chloride IVPUSH 08/09/21 10:42 420 mls/hr ONETIME ONE Administration Iopamidol 100 ml 08/09/21 12:42 08/09/21 12:42 Iopamidol 755 Mg/Ml 500 Ml Multipack Bottle IVPUSH 08/09/21 12:43 100 ml ONETIME STA Administration Departure - Departure Time of Disposition: 13:24 Disposition: Home, Self-Care 01 Clinical Impression: Gastritis, Enteritis Abdominal pain Qualifiers: Abdominal location: left lower quadrant Qualified Code(s): R10.32 - Left lower quadrant pain - Discharge Information Prescriptions: Omeprazole 40 mg PO DAILY 14 Days #14 capsule.dr Instructions: Gastritis, Adult, [id number] Referrals: PCP,None [Primary Care Provider] - Forms: ED Department Discharge Additional Instructions: The following information is given to patients seen in the emergency department who are being discharged to home. This information is to outline your options for follow-up care. We provide all patients seen in our emergency department with a follow-up referral. The need for follow-up, as well as the timing and circumstances, are variable depending upon the specifics of your emergency department visit. If you don't have a primary care physician on staff, we will provide you with a referral. We always advise you to contact your personal physician following an emergency department visit to inform them of the circumstance of the visit and for follow-up with them and/or the need for any referrals to a consulting specialist. The emergency department will also refer you to a specialist when appropriate. This referral assures that you have the opportunity for follow-up care with a specialist. All of these measure are taken in an effort to provide you with optimal care, which includes your follow-up. Under all circumstances we always encourage you to contact your private physician who remains a resource for coordinating your care. When calling for follow-up care, please make the office aware that this follow-up is from your recent emergency room visit. If for any reason you are refused follow-up, please contact the [facility] Emergency Department at and asked to speak to the emergency department charge nurse. [facility] [address] [place] [address] [place] [address] 1. Take medication as prescribed. You can also use Tylenol as directed for pain and discomfort. Avoid any NSAID medications such as ibuprofen, naproxen, Aleve, or aspirin until you have followed up with your primary care provider for further management. 2. Follow-up with a primary care provider as discussed. Return to the ED as needed and as discussed. Sepsis Event Note (ED) - Evaluation Sepsis Screening Result: No Definite Risk - Focused Exam Vital Signs: Vital Signs Temp Pulse Resp BP Pulse Ox 08/09/21 12:54 65 16 118/72 98 08/09/21 11:27 74 14 124/84 99 08/09/21 09:57 97.8 F 85 15 125/89 97
--- NOTE | 2021-08-09 10:38 | PCM.EKG ---
#1 Interpretation Time: 10:38 EKG Interpretation Comments: 70, normal sinus rhythm, nonspecific ST/T findings
[2021-08-09] MEDS ORDERED: Pantoprazole 80 MG in Sodium Chloride 0.9% 20 ML IVPUSH ONE (10:40)
[2021-08-09 10:53] LABS: BLOOD UREA NITROGEN,BUN 13 mg/dL (7.0-18.0); CARBON DIOXIDE,CO2 28.2 mmol/L (21.0-32.0); CHLORIDE,CL 101 mmol/L (98-107); GLUCOSE RANDOM 100 mg/dL (74-106); LIPASE 150 U/L (73-393); POTASSIUM,K 3.7 mmol/L (3.5-5.1); SODIUM,NA 140 mmol/L (136-145)
[2021-08-09] MEDS ORDERED: Iopamidol 755 MG/ML 500 ML Multipack Bottle IVPUSH STA (12:42)
--- NOTE | 2021-08-09 13:17 | CT ---
Indication: Right lower quadrant pain Technique: Volumetric multidetector CT images of the abdomen and pelvis were obtained after the administration of intravenous contrast. 100 cc Isovue 370 low osmolar intravenous contrast Comparison: None available. Findings: There is bibasilar atelectasis and parenchymal scar. The liver is normal in attenuation without intrahepatic biliary ductal dilatation. The portal vein is patent. The gallbladder is unremarkable without evidence of radiopaque calculus. There is no significant common biliary ductal dilatation or abrupt cut off. The spleen is normal in enhancement and size. There is mild thickening of the gastric antrum commensurate with likely mild chronic gastritis changes. The pancreas is normal in enhancement without significant atrophy. The adrenal glands are unremarkable. The kidneys demonstrate preserved corticomedullary differentiation without evidence of obstructive uropathy. There are scattered fluid-filled loops of central small bowel with a decompressed appearing colon which may represent mild enteritis changes. There is minimal distal colonic diverticulosis without definite evidence of diverticulitis. The appendix is unremarkable. There is no significant mesenteric, retroperitoneal, or pelvic sidewall lymph nodes. The aorta is nonaneurysmal. There is no significant atherosclerotic disease appreciated. There is prior hysterectomy. Otherwise the pelvic viscera are grossly within normal limits. There is no free fluid or free air. The anterior abdominal wall is intact without significant hernias. The lumbar vertebral body heights are grossly maintained with mild multi-level degenerative disc disease. There is no acute osseous abnormality. Impression: Demonstration of nonspecific fluid-filled loops of central small bowel which may represent mild enteritis changes. Minimal colonic diverticulosis of the descending and sigmoid colon with overall decompressed appearance. No overt inflammatory changes are identified; however, low-grade inflammation is not entirely excluded. Mild thickening of the gastric antrum commensurate with likely chronic gastritis changes. Otherwise, no definite acute intra-abdominal abnormality. Please note that all CT scans at this facility use dose modulation, iterative reconstruction, and/or weight-based dosing when appropriate to reduce radiation dose to as low as reasonably achievable. Dictated by Shaquille Wooten MD @ 08/09/2021 1:16:35 PM (Electronically Signed)
[2021-08-09 13:36] VITALS: BP 132/83; PULSE 78
== END 2021-08-09 13:39 | disposition home or self-care (01) ==
LOC: MW.ED 09:26
DX: K52.9 Noninfective gastroenteritis and colitis, unspecified (principal); K29.70 Gastritis, unspecified, without bleeding; Z88.0 Allergy status to penicillin; Z79.899 Other long term (current) drug therapy; Z72.0 Tobacco use
CPT/HCPCS: 36415; 74177; 80053; 81003; 83690; 84484; 85025; 96374; 99285; C9113; J7030; Q9967

== ENCOUNTER 2021-09-24 11:40 | Emergency (ER) | payer BC, MEDICAID ==
[2021-09-24] MEDS ORDERED: Sodium Chloride 0.9% 1,000 ML IV ONE (12:07)
[2021-09-24] MEDS ORDERED: Ondansetron 4 MG/2 ML SDV IVPUSH ONE (12:08)
[2021-09-24] MEDS ORDERED: Ketorolac 30 MG/ML SDV IVPUSH ONE (12:08)
[2021-09-24] MEDS ORDERED: diphenhydrAMINE 50 MG/ML SDV IVPUSH ONE (12:08)
[2021-09-24] MEDS ORDERED: Metoclopramide 10 MG/2 ML SDV IVPUSH ONE (12:08)
[2021-09-24] MEDS ORDERED: Acetaminophen 500 MG Tab PO ONE (12:08)
--- NOTE | 2021-09-24 12:19 | EDM.PDOC ---
ED HPI GENERAL MEDICAL PROBLEM - General Chief Complaint: Respiratory Problem Stated Complaint: POSITIVE FOR COVID,MIGRAINE, LEGS SHAKY, WEAK Time Seen by Provider: 09/24/21 11:42 Source of Information: Reports: Patient History Limitations: Reports: No Limitations - History of Present Illness INITIAL COMMENTS - FREE TEXT/NARRATIVE: HISTORY AND PHYSICAL: History of present illness: Patient is a 30-year-old female, with known COVID-19 diagnosis x7 days, symptomatic for 14, who presents emergency room today with concern of worsening COVID-19 viral infection. Patient states that in general, she has felt tired and rundown but states over the past several days, she has had worsening symptoms. Patient states that she has had worsening shortness of breath, cough, fatigue, and states that she does feel dizzy or lightheaded with standing up. Patient states that she also has a headache and generalized body aches. Patient states that she is outside of the window for the monoclonal antibody infusion but had not planned on getting this. Patient states she has a history of hysterectomy so is not . Patient denies fever, chills, chest pain. Denies neck stiff ness, change in vision, syncope. Denies nausea, vomiting, abdominal pain, diarrhea, constipation, or dysuria. Has not noted any blood in urine or stool. Patient has been eating and drinking appropriately. Review of systems: As per history of present illness and below otherwise all systems reviewed and negative. Past medical history: As per history of present illness and as reviewed below otherwise n oncontributory. Surgical history: As per history of present illness and as reviewed below otherwise noncontributory. Social history: See social history for further information Family history: As per history of present illness and as reviewed below otherwise noncontributory. Physical exam: General: Patient is alert, oriented, and in no acute distress. Patient laying comfortably on exam table, tired appearing. Vitals stable and reviewed by me. HEENT: Atraumatic, normocephalic, pupils equal and reactive bilaterally, negative for conjunctival pallor or scleral icterus, mucous membranes moist, throat clear, neck supple, nontender, trachea midline. No drooling or trismus noted. No meningeal signs. No hot potato voice noted. Lungs: Clear to auscultation, breath sounds equal bilaterally, chest nontender. Heart: S1S2, regular rate and rhythm without overt murmur Abdomen: Soft, nondistended, nontender. Negative for masses or hepatosplenomegaly. Negative for costovertebral tenderness. Pelvis: Stable nontender. Genitourinary: Deferred. Rectal: Deferred. Skin: Intact, warm, dry. No lesions or rashes noted. Extremities: Atraumatic, negative for cords or calf pain. Neurovascular unremark able. Neuro: Awake, alert, oriented. Cranial nerves II through XII unremarkable. Cerebellum unremarkable. Motor and sensory unremarkable throughout. Exam nonfocal. Medical Decision Making: Patient is a 30-year-old female who presents emergency room today with concern of worsening COVID-19 viral infection including worsening shortness of breath, headache, generalized body aches, and dizziness. Upon arrival to the ED, patient is vitally stable, is tired appearing on exam, exam is otherwise unremarkable. Will obtain cardiac evaluation, initiate IV fluids and therapeutics, and reassess patient. See Dr. Robin's dictation for specific EKG interpretation. Otherwise, normal sinus rhythm without STEMI. CBC does show hemoglobin hematocrit are mildly increased at 16.5, and 46.4 respectively. Otherwise mild derangements of CBC are unremarkable. D-dimer is within normal limits. CMP mild derangements are unremarkable. Troponin negative. Chest x-ray shows no acute cardiopulmonary findings. Upon reevaluation of patient, she does have improvement of her symptoms with therapeutics given today in emergency room. Strict return precautions thoroughly discussed with patient. Discussed importance for follow-up with a primary care provider Voices understanding and is agreeable to plan of care. Denies any further questions or concerns at this time. Diagnostics: EKG, CBC, CMP, D-dimer, troponin, chest x-ray Therapeutics: Normal saline, Toradol, Zofran, Reglan, Benadryl Prescription: None Impression: COVID-19 viral infection Plan: 1. Your vital signs and oxygen saturation are well enough that you were able to monitor your symptoms at home. Continue to monitor for trouble breathing, new confusion or inability to arouse, bluish lips or face or any of the other symptoms we discussed -if this occurs please return to the emergency room.Continue to monitor your health at home for worsening symptoms so that you can be taken care of and treated quickly if needed. 2. Please self quarantine until 10 days have passed since your symptoms began AND you are fever free (<100.4 degrees fahrenheit) for 24 hours without the use of fever-reducing medications AND symptoms are improving. You should restrict activities outside of your home, except for getting medical care. Do not go to work, school, or public areas. Avoid using public transportation, ride-sharing, or taxis. Inform any persons that you have been in contact with since you started becoming symptomatic that you have tested positive; they should be made aware and take the appropriate steps as needed. 3. You may alternate Tylenol and ibuprofen as needed for pain and fever management. 4. The [facility] department will be calling you and following up with you. The [place] 19 Hot[place] phone [place] , They are open Thursday - Thursday 7am - 7pm. Follow up with your primary care provider for re-evaluation and re-testing after quarantine and discuss when you should be seen. 6. For more specific guidelines regarding isolation/quarantine please visit this website. https://www.health.[place].gov/sites/www/files/documents/Files/CAM/coronavirus/Factsh eet_for_People_With_COVID-19.pdf Definitive disposition and diagnosis as appropriate pending reevaluation and review of above. whole body Pain Score (Numeric/FACES): 4 - Related Data Allergies Allergy/AdvReac Type Severity Reaction Status Date / Time amoxicillin Allergy Anaphylactic Verified 09/24/21 11:52 Shock Penicillins Allergy Anaphylactic Verified 09/24/21 11:52 Shock Home Meds: Home Meds . 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: Reports: Endometriosis, , Spontaneous Musculoskeletal History: Reports: Fracture Other Musculoskeletal History: hx fx wrist & foot Neurological History: Reports: None Psychiatric History: Reports: Anxiety Other Psychiatric History: undiagniosed anxiety Endocrine/Metabolic History: Reports: None Hematologic History: Reports: None Immunologic History: Reports: None Oncologic (Cancer) History: Reports: None Dermatologic History: Reports: Eczema - Infectious Disease History Infectious Disease History: Reports: Chicken Pox - Past Surgical History Head Surgeries/Procedures: Reports: None HEENT Surgical History: Reports: Adenoidectomy, Tonsillectomy Cardiovascular Surgical History: Reports: None Respiratory Surgical History: Reports: None GI Surgical History: Reports: None, Colonoscopy, EGD Female Surgical History: Reports: Endometrial Ablation, Hysterectomy, Other (See Below) Other Female Surgeries/Procedures: laparoscopy x4, laparoscopic hysterectomy with jhonathan salpingectomy, cysto Endocrine Surgical History: Reports: None Neurological Surgical History: Reports: None Musculoskeletal Surgical History: Reports: None Oncologic Surgical History: Reports: None Dermatological Surgical History: Reports: None Social & Family History - Family History Family Medical History: No Pertinent Family History - Caffeine Use Caffeine Use: Reports: Coffee, Energy Drinks - Recreational Drug Use Recreational Drug Use: No ED ROS GENERAL - Review of Systems Review Of Systems: Comprehensive ROS is negative, except as noted in HPI. ED EXAM, GENERAL - Physical Exam Exam: See Below (see dictation) Course - Vital Signs Last Recorded V/S: Last Vital Signs Temp 98.1 F 09/24/21 14:53 Pulse 68 09/24/21 14:53 Resp 16 09/24/21 14:53 BP 125/76 09/24/21 14:53 Pulse Ox 96 09/24/21 14:53 - Orders/Labs/Meds Orders: Active Orders 24 hr Category Date Time Status Sodium Chloride 0.9% [Normal Saline] 500 ml Med 09/24/21 13:15 Active IV STAT Medication Orders Sodium Chloride (Normal Saline) 500 mls @ 999 mls/hr IV STAT IVONNE Last Admin: 09/24/21 13:35 Dose: 999 mls/hr Documented by: SERGEY Labs: Laboratory Tests 09/24/21 09/24/21 09/24/21 Range/Units 12:19 12:19 12:19 WBC 10.07 (4.0-11.0) K/uL RBC 5.33 (4.30-5.90) M/uL Hgb 16.5 H (12.0-16.0) g/dL Hct 46.4 H (36.0-46.0) % MCV 87.1 (80.0-98.0) fL MCH 31.0 (27.0-32.0) pg MCHC 35.6 (31.0-37.0) g/dL RDW Std Deviation 40.6 (28.0-62.0) fl RDW Coeff of Maynor 13 (11.0-15.0) % Plt Count 220 (150-400) K/uL MPV 10.10 (7.40-12.00) fL Neut % (Auto) 63.7 (48.0-80.0) % Lymph % (Auto) 28.2 (16.0-40.0) % Hood % (Auto) 6.4 (0.0-15.0) % Eos % (Auto) 1.7 (0.0-7.0) % Baso % (Auto) 0.0 (0.0-1.5) % Neut # (Auto) 6.4 H (1.4-5.7) K/uL Lymph # (Auto) 2.8 H (0.6-2.4) K/uL Hood # (Auto) 0.6 (0.0-0.8) K/uL Eos # (Auto) 0.2 (0.0-0.7) K/uL Baso # (Auto) 0.0 (0.0-0.1) K/uL Nucleated RBC % 0.0 /100WBC Nucleated RBCs # 0 K/uL D-Dimer, Quantitative 0.23 (0.0-0.50) mg/L FEU Sodium 139 (136-145) mmol/L Potassium 3.6 (3.5-5.1) mmol/L Chloride 104 (98-107) mmol/L Carbon Dioxide 26.7 (21.0-32.0) mmol/L BUN 16 (7.0-18.0) mg/dL Creatinine 0.8 (0.6-1.0) mg/dL Est Cr Clr Drug Dosing 88.79 mL/min Estimated GFR (MDRD) > 60.0 ml/min Glucose 98 (74-106) mg/dL Calcium 9.3 (8.5-10.1) mg/dL Total Bilirubin 0.7 (0.2-1.0) mg/dL AST 14 L (15-37) IU/L ALT 26 (14-63) IU/L Alkaline Phosphatase 21 L (46-116) U/L Troponin I < 0.050 (0.000-0.056) ng/mL Total Protein 7.2 (6.4-8.2) g/dL Albumin 3.8 (3.4-5.0) g/dL Globulin 3.4 (2.6-4.0) g/dL Albumin/Globulin Ratio 1.1 (0.9-1.6) Meds: Medications Generic Name Dose Route Start Last Admin Trade Name Snadra PRN Reason Stop Dose Admin Sodium Chloride 500 mls @ 999 mls/hr 09/24/21 13:15 09/24/21 13:35 Normal Saline IV 999 mls/hr STAT IVONNE Administration Discontinued Medications Generic Name Dose Route Start Last Admin Trade Name Sandra PRN Reason Stop Dose Admin Acetaminophen 1,000 mg 09/24/21 12:08 09/24/21 12:33 Acetaminophen 500 Mg Tab PO 09/24/21 12:09 1,000 mg ONETIME ONE Administration Diphenhydramine HCl 25 mg 09/24/21 12:08 09/24/21 12:35 Diphenhydramine 50 Mg/Ml Sdv IVPUSH 09/24/21 12:09 25 mg ONETIME ONE Administration Sodium Chloride 1,000 mls @ 999 mls/hr 09/24/21 12:07 09/24/21 12:30 Normal Saline IV 09/24/21 13:07 999 mls/hr BOLUS ONE Administration Ketorolac Tromethamine 30 mg 09/24/21 12:08 09/24/21 12:34 Ketorolac 30 Mg/Ml Sdv IVPUSH 09/24/21 12:09 30 mg ONETIME ONE Administration Metoclopramide HCl 10 mg 09/24/21 12:08 09/24/21 12:34 Metoclopramide 10 Mg/2 Ml Sdv IVPUSH 09/24/21 12:09 10 mg ONETIME ONE Administration Ondansetron HCl 4 mg 09/24/21 12:08 09/24/21 12:35 Ondansetron 4 Mg/2 Ml Sdv IVPUSH 09/24/21 12:09 4 mg ONETIME ONE Administration Departure - Departure Time of Disposition: 14:43 Disposition: Home, Self-Care 01 Clinical Impression: COVID-19 virus infection - Discharge Information Referrals: PCP,None [Primary Care Provider] - Forms: ED Department Discharge Additional Instructions: The following information is given to patients seen in the emergency department who are being discharged to home. This information is to outline your options for follow-up care. We provide all patients seen in our emergency department with a follow-up referral. The need for follow-up, as well as the timing and circumstances, are variable depending upon the specifics of your emergency department visit. If you don't have a primary care physician on staff, we will provide you with a referral. We always advise you to contact your personal physician following an emergency department visit to inform them of the circumstance of the visit and for follow-up with them and/or the need for any referrals to a consulting specialist. The emergency department will also refer you to a specialist when appropriate. This referral assures that you have the opportunity for follow-up care with a specialist. All of these measure are taken in an effort to provide you with optimal care, which includes your follow-up. Under all circumstances we always encourage you to contact your private physician who remains a resource for coordinating your care. When calling for f ollow-up care, please make the office aware that this follow-up is from your recent emergency room visit. If for any reason you are refused follow-up, please contact the Emergency Department at and asked to speak to the emergency department charge nurse. Primary Care [address] [place] [address] [address] 1. Your vital signs and oxygen saturation are well enough that you were able to monitor your symptoms at home. Continue to monitor for trouble breathing, new confusion or inability to arouse, bluish lips or face or any of the other symptoms we discussed -if this occurs please return to the emergency room.Continue to monitor your health at home for worsening symptoms so that you can be taken care of and treated quickly if needed. 2. Please self quarantine until 10 days have passed since your symptoms began AND you are fever free (<100.4 degrees fahrenheit) for 24 hours without the use of fever-reducing medications AND symptoms are improving. You should restrict activities outside of your home, except for getting medical care. Do not go to work, school, or public areas. Avoid using public transportation, ride-sharing, or taxis. Inform any persons that you have been in contact with since you started becoming symptomatic that you have tested positive; they should be made aware and take the appropriate steps as needed. 3. You may alternate Tylenol and ibuprofen as needed for pain and fever management. 4. The [facility] department will be calling you and following up with you. The [place] COVID 19 Hot[place] phone number , They are open Thursday - Thursday 7am - 7pm. Follow up with your primary care provider for re-evaluation and re-testing after quarantine and discuss when you should be seen. 5. For more specific guidelines regarding isolation/quarantine please visit this website. https://www.health.[place]/sites/www/files/documents/Files/CAM/coronavirus/Factsh eet_for_People_With_COVID-19.pdf Sepsis Event Note (ED) - Evaluation Sepsis Screening Result: No Definite Risk - Focused Exam Vital Signs: Vital Signs Temp Pulse Resp BP Pulse Ox 09/24/21 14:53 98.1 F 68 16 125/76 96 09/24/21 13:49 72 121/63 98 09/24/21 12:44 97.7 F 79 16 120/74 97 09/24/21 11:40 98.7 F 90 18 142/91 H 97 - My Orders Last 24 Hours: My Active Orders 09/24/21 13:15 Sodium Chloride 0.9% [Normal Saline] 500 ml IV STAT - Assessment/Plan Last 24 Hours: My Active Orders 09/24/21 13:15 Sodium Chloride 0.9% [Normal Saline] 500 ml IV STAT
--- NOTE | 2021-09-24 12:26 | PCM.EKG ---
#1 Interpretation Time: 12:13 EKG Interpretation Comments: EKG: NSR, nonspecific ST/T changes, Rate -79
[2021-09-24] MEDS ORDERED: Sodium Chloride 0.9% 500 ML IV SCH (13:15)
[2021-09-24 13:18] LABS: BLOOD UREA NITROGEN,BUN 16 mg/dL (7.0-18.0); CARBON DIOXIDE,CO2 26.7 mmol/L (21.0-32.0); CHLORIDE,CL 104 mmol/L (98-107); GLUCOSE RANDOM 98 mg/dL (74-106); POTASSIUM,K 3.6 mmol/L (3.5-5.1); SODIUM,NA 139 mmol/L (136-145)
--- NOTE | 2021-09-24 14:10 | CR ---
INDICATION: Pain and dyspnea COMPARISON: April 01, 2019 TECHNIQUE: AP upright single view portable chest radiograph FINDINGS: TUBES AND LINES: None. HEART AND MEDIASTINUM: The heart size is normal. The mediastinal contour appears normal for patient age. LUNGS AND PLEURAL SPACES: The lungs appear normal.The pleural spaces are unremarkable. OSSEOUS STRUCTURES: Age-appropriate appearance. No acute focal finding. IMPRESSION: No evidence of active pulmonary disease. Dictated by Willem Teague MD @ 09/24/2021 2:10:16 PM (Electronically Signed)
[2021-09-24 14:57] VITALS: BP 125/76; PULSE 68
== END 2021-09-24 14:53 | disposition home or self-care (01) ==
LOC: MW.ED 11:40
DX: U07.1 COVID-19 (principal); Z88.0 Allergy status to penicillin
CPT/HCPCS: 36415; 71045; 80053; 84484; 85025; 85379; 93005; 96374; 96375; 99284; A9270; J1200; J1885; J2405; J2765; J7030; J7040

== ENCOUNTER 2021-10-26 23:07 | Emergency (ER) | payer BC, MEDICAID ==
[2021-10-27] MEDS ORDERED: Acetaminophen/HYDROcodone 325-5 MG Tab PO ONE (00:30)
[2021-10-27] MEDS ORDERED: Iopamidol 755 MG/ML 500 ML Multipack Bottle IVPUSH ONE (01:22)
[2021-10-27] MEDS ORDERED: Ketorolac 30 MG/ML SDV IVPUSH ONE (04:12)
[2021-10-27 04:48] VITALS: BP 128/62; PULSE 72
== END 2021-10-27 04:50 | disposition home or self-care (01) ==
LOC: MW.ED 23:07
DX: M54.6 Pain in thoracic spine (principal); S09.90XA Unspecified injury of head, initial encounter; Z88.0 Allergy status to penicillin; W00.0XXA Fall on same level due to ice and snow, initial encounter
CPT/HCPCS: 72128; 72131; 74177; 81025; 96374; 99284; A9270; J1885; Q9967

== ENCOUNTER 2021-11-02 16:04 | Emergency (ER) | payer BC, MEDICAID | END 2021-11-02 20:31 | disposition left against medical advice (07) | LOC: MW.ED 16:04 | DX: Z53.21 Procedure and treatment not carried out due to patient leaving prior to being seen by health care provider (principal) ==

== ENCOUNTER 2022-01-08 20:03 | Emergency (ER) | payer BC, MEDICAID ==
[2022-01-08] MEDS ORDERED: Sodium Chloride 0.9% 10 ML Syringe FLUSH PRN (21:55)
[2022-01-08] MEDS ORDERED: Sodium Chloride 0.9% 1,000 ML IV ONE (21:55)
[2022-01-08] MEDS ORDERED: Sodium Chloride 0.9% 2.5 ML Syringe FLUSH PRN (21:55)
[2022-01-08] MEDS ORDERED: Ondansetron 4 MG/2 ML SDV IVPUSH ONE (22:05)
[2022-01-08] MEDS ORDERED: Ketorolac 30 MG/ML SDV IVPUSH ONE (22:05)
[2022-01-08 22:30] LABS: BLOOD UREA NITROGEN,BUN 19 mg/dL (7.0-18.0); CARBON DIOXIDE,CO2 27.7 mmol/L (21.0-32.0); CHLORIDE,CL 103 mmol/L (98-107); GLUCOSE RANDOM 98 mg/dL (74-106); LIPASE 170 U/L (73-393); POTASSIUM,K 3.2 mmol/L (3.5-5.1); SODIUM,NA 140 mmol/L (136-145)
[2022-01-08 23:59] VITALS: BP 127/69; PULSE 88
== END 2022-01-09 00:06 | disposition home or self-care (01) ==
LOC: MW.ED 20:03
DX: R10.32 Left lower quadrant pain (principal); Z88.0 Allergy status to penicillin
CPT/HCPCS: 36415; 74176; 80053; 81003; 83690; 84703; 85025; 96374; 96375; 99284; J1885; J2405; J7030; 99283

== ENCOUNTER 2022-03-06 19:09 | Emergency (ER) | payer BC, MEDICAID ==
[2022-03-06] MEDS ORDERED: Sodium Chloride 0.9% 1,000 ML IV ONE (19:15)
[2022-03-06] MEDS ORDERED: Ketorolac 10 MG Tab PO ONE (19:38)
[2022-03-06] MEDS ORDERED: Ondansetron 4 MG Tab.DIS PO ONE (19:38)
[2022-03-06 20:19] LABS: BLOOD UREA NITROGEN,BUN 18 mg/dL (7.0-18.0); CHLORIDE,CL 106 mmol/L (98-107); GLUCOSE RANDOM 95 mg/dL (74-106); POTASSIUM,K 4.1 mmol/L (3.5-5.1); SODIUM,NA 141 mmol/L (136-145)
[2022-03-06 20:42] VITALS: BP 125/82; PULSE 93
== END 2022-03-06 20:43 | disposition home or self-care (01) ==
LOC: MW.ED 19:09
DX: B34.9 Viral infection, unspecified (principal); Z90.710 Acquired absence of both cervix and uterus; Z79.899 Other long term (current) drug therapy; Z88.0 Allergy status to penicillin
CPT/HCPCS: 36415; 70450; 71045; 80053; 81003; 84484; 85025; 93005; 99284; A9270; 93010

== ENCOUNTER 2022-04-07 19:12 | Emergency (ER) | payer BC, MEDICAID ==
[2022-04-07 21:53] VITALS: BP 119/86; PULSE 86
== END 2022-04-07 21:51 | disposition home or self-care (01) ==
LOC: MW.ED 19:12
DX: G89.29 Other chronic pain (principal); M54.50 Low back pain, unspecified; Z88.0 Allergy status to penicillin
CPT/HCPCS: 99283

== ENCOUNTER 2022-04-20 09:38 | Emergency (ER) | payer BC, MEDICAID ==
[2022-04-20] MEDS ORDERED: Acetaminophen/HYDROcodone 325-5 MG Tab PO ONE (10:15)
[2022-04-20] MEDS ORDERED: Sodium Chloride 0.9% 2.5 ML Syringe FLUSH PRN (10:16)
[2022-04-20] MEDS ORDERED: Sodium Chloride 0.9% 10 ML Syringe FLUSH PRN (10:16)
[2022-04-20 11:41] LABS: CARBON DIOXIDE,CO2 27.5 mmol/L (21.0-32.0); POTASSIUM,K 3.9 mmol/L (3.5-5.1)
[2022-04-20] MEDS ORDERED: Iopamidol 755 MG/ML 500 ML Multipack Bottle IVPUSH STA (13:10)
[2022-04-20 13:30] VITALS: BP 127/76; PULSE 76
== END 2022-04-20 14:29 | disposition home or self-care (01) ==
LOC: MW.ED 09:38
DX: M79.644 Pain in right finger(s) (principal); Z88.0 Allergy status to penicillin; Z91.018 Allergy to other foods
CPT/HCPCS: 36415; 73120; 73201; 80053; 85025; 99284; A9270; Q9967

== ENCOUNTER 2022-04-23 18:33 | Emergency (ER) | payer MEDICAID | END 2022-04-23 19:20 | disposition left against medical advice (07) | LOC: MW.ED 18:33 | DX: Z53.21 Procedure and treatment not carried out due to patient leaving prior to being seen by health care provider (principal) ==

== ENCOUNTER 2022-10-14 09:19 | Emergency (ER) | payer BC, MEDICAID ==
[2022-10-14] MEDS ORDERED: Sodium Chloride 0.9% 2.5 ML Syringe FLUSH PRN (10:11)
[2022-10-14] MEDS ORDERED: Ketorolac 30 MG/ML SDV IVPUSH ONE (10:11)
[2022-10-14] MEDS ORDERED: Sodium Chloride 0.9% 1,000 ML IV ONE (10:11)
[2022-10-14] MEDS ORDERED: Ondansetron 4 MG/2 ML SDV IVPUSH ONE (10:11)
[2022-10-14] MEDS ORDERED: Sodium Chloride 0.9% 10 ML Syringe FLUSH PRN (10:11)
[2022-10-14] MEDS ORDERED: HYDROmorphone 1 MG/ML Syringe IVPUSH ONE (10:12)
[2022-10-14 10:48] LABS: CARBON DIOXIDE,CO2 27.7 mmol/L (21.0-32.0); POTASSIUM,K 4.2 mmol/L (3.5-5.1)
[2022-10-14] MEDS ORDERED: Orphenadrine 60 MG/2 ML Inj IM ONE (12:03)
[2022-10-14 12:33] VITALS: BP 128/67; PULSE 78
== END 2022-10-14 12:32 | disposition home or self-care (01) ==
LOC: MW.ED 09:19
DX: S39.012A Strain of muscle, fascia and tendon of lower back, initial encounter (principal); F17.210 Nicotine dependence, cigarettes, uncomplicated; Z88.0 Allergy status to penicillin; Z91.018 Allergy to other foods; Z86.16 Personal history of COVID-19
CPT/HCPCS: 36415; 70450; 74176; 80053; 81003; 83690; 85025; 96361; 96372; 96374; 96375; 99284; J1170; J1885; J2360; J2405; J3490; J7030

== ENCOUNTER 2022-11-03 10:52 | Emergency (ER) | payer BC, MEDICAID ==
[2022-11-03] MEDS ORDERED: Sodium Chloride 0.9% 1,000 ML IV ONE (10:56)
[2022-11-03 11:11] VITALS: BP 173/81
[2022-11-03 11:43] LABS: POTASSIUM,K 3.9 mmol/L (3.5-5.1)
[2022-11-03] MEDS ORDERED: Ketorolac 30 MG/ML SDV IVPUSH ONE (12:08)
[2022-11-03 13:33] VITALS: PULSE 87
== END 2022-11-03 13:33 | disposition home or self-care (01) ==
LOC: MW.ED 10:52
DX: R10.9 Unspecified abdominal pain (principal); R53.83 Other fatigue; Z88.0 Allergy status to penicillin; Z91.018 Allergy to other foods; Z79.899 Other long term (current) drug therapy; Z86.16 Personal history of COVID-19; Z90.710 Acquired absence of both cervix and uterus; Z72.0 Tobacco use
CPT/HCPCS: 36415; 80053; 80305; 81003; 81025; 82140; 82375; 83605; 83690; 84443; 85025; 86308; 96361; 96374; 99284; J1885; J7030

== ENCOUNTER 2023-01-31 14:03 | Emergency (ER) | payer BC, MEDICAID ==
[2023-01-31] MEDS ORDERED: Sodium Chloride 0.9% 1,000 ML IV ONE (14:34)
[2023-01-31] MEDS ORDERED: LORazepam 2 MG/ML SDV IVPUSH ONE (14:48)
[2023-01-31] MEDS ORDERED: Ketorolac 30 MG/ML SDV IVPUSH ONE (14:49)
[2023-01-31] MEDS ORDERED: Ondansetron 4 MG/2 ML SDV IVPUSH ONE (14:49)
[2023-01-31 15:35] LABS: CARBON DIOXIDE,CO2 27.6 mmol/L (21.0-32.0); POTASSIUM,K 3.4 mmol/L (3.5-5.1)
[2023-01-31 17:12] VITALS: BP 125/89; PULSE 89
== END 2023-01-31 17:10 | disposition home or self-care (01) ==
LOC: MW.ED 14:03
DX: G44.209 Tension-type headache, unspecified, not intractable (principal); Z88.0 Allergy status to penicillin; Z91.018 Allergy to other foods
CPT/HCPCS: 36415; 71045; 80053; 80305; 81003; 84443; 84484; 85025; 86308; 96361; 96374; 96375; 99285; J1885; J2060; J2405; J7030; 93010; 99283

== ENCOUNTER 2023-03-30 10:00 | Emergency (ER) | payer BC, MEDICAID ==
[2023-03-30 10:32] LABS: APPEARANCE,URINE CLEAR; BILIRUBIN,URINE NEGATIVE (NEGATIVE); COLOR,URINE YELLOW; GLUCOSE,URINE NEGATIVE (NEGATIVE); KETONES,URINE NEGATIVE (NEGATIVE); LEUKOCYTE ESTERASE,URINE NEGATIVE (NEGATIVE); NITRITE,URINE NEGATIVE (NEGATIVE); OCCULT BLOOD,URINE NEGATIVE (NEGATIVE); PROTEIN,URINE NEGATIVE (NEGATIVE); UROBILINOGEN,URINE 0.2 EU/dL (<2.0)
[2023-03-30 10:44] LABS: BASOPHILS PERCENT AUTO 0.1 % (0.0-1.5); EOSINOPHILS ABSOLUTE AUTO 0.4 K/uL (0.0-0.7); EOSINOPHILS PERCENT AUTO 3.7 % (0.0-7.0); HEMATOCRIT 43.1 % (36.0-46.0); LYMPHOCYTES ABSOLUTE AUTO 2.1 K/uL (0.6-2.4); LYMPHOCYTES PERCENT AUTO 21.8 % (16.0-40.0); MEAN CORPUSCULAR HEMOGLOBIN 31.3 pg (27.0-32.0); MEAN CORPUSCULAR HGB CONC 34.8 g/dL (31.0-37.0); MEAN CORPUSCULAR VOLUME 89.8 fL (80.0-98.0); MONOCYTES ABSOLUTE AUTO 0.7 K/uL (0.0-0.8); MONOCYTES PERCENT AUTO 7.2 % (0.0-15.0); NEUTROPHILS ABSOLUTE AUTO 6.3 K/uL (1.4-5.7); NEUTROPHILS PERCENT AUTO 67.2 % (48.0-80.0); NRBC ABSOLUTE 0 K/uL; PLATELET COUNT,PLT 243 K/uL (150-400); WHITE BLOOD CELL COUNT,WBC 9.42 K/uL (4.0-11.0)
[2023-03-30 11:15] LABS: A/G RATIO 1.2 (0.9-1.6); ALBUMIN 3.5 g/dL (3.4-5.0); BILIRUBIN TOTAL 0.9 mg/dL (0.2-1.0); CALCIUM 8.6 mg/dL (8.5-10.1); CARBON DIOXIDE,CO2 27.3 mmol/L (21.0-32.0); CREATININE 0.8 mg/dL (0.6-1.0); EST CRCL DRUG DOSING (CG) 87.18 mL/min; POTASSIUM,K 4.1 mmol/L (3.5-5.1); PROTEIN TOTAL,TP 6.5 g/dL (6.4-8.2)
[2023-03-30 11:34] VITALS: BP 131/79; PULSE 70
== END 2023-03-30 11:58 | disposition home or self-care (01) ==
LOC: MW.ED 10:00
DX: M79.89 Other specified soft tissue disorders (principal); F17.210 Nicotine dependence, cigarettes, uncomplicated
CPT/HCPCS: 36415; 80053; 81003; 81025; 85025; 99283

== ENCOUNTER 2023-05-31 15:39 | Emergency (ER) | payer BC, MEDICAID ==
[2023-05-31] MEDS ORDERED: Ketorolac 30 MG/ML SDV IM ONE (16:08)
[2023-05-31] MEDS ORDERED: Lidocaine 4% 1 each Patch TOP PRN (16:08)
[2023-05-31 17:18] VITALS: BP 121/69; PULSE 84
== END 2023-05-31 17:17 | disposition home or self-care (01) ==
LOC: MW.ED 15:39
DX: S13.4XXA Sprain of ligaments of cervical spine, initial encounter (principal); Z88.0 Allergy status to penicillin; Z91.018 Allergy to other foods; X50.1XXA Overexertion from prolonged static or awkward postures, initial encounter
CPT/HCPCS: 96372; 99283; A9270; J1885; J3360; 99282

== ENCOUNTER 2023-06-06 15:39 | Emergency (ER) | payer BC ==
[2023-06-06 16:17] LABS: APPEARANCE,URINE CLEAR; BILIRUBIN,URINE NEGATIVE (NEGATIVE); COLOR,URINE YELLOW; GLUCOSE,URINE NEGATIVE (NEGATIVE); KETONES,URINE TRACE mg/dL (NEGATIVE); LEUKOCYTE ESTERASE,URINE NEGATIVE (NEGATIVE); NITRITE,URINE NEGATIVE (NEGATIVE); OCCULT BLOOD,URINE NEGATIVE (NEGATIVE); PROTEIN,URINE TRACE mg/dL (NEGATIVE)
[2023-06-06 16:25] LABS: BACTERIA,URINE RARE (NEGATIVE); EPITHELIAL CELLS,URINE FEW (NONE-FEW); RBC,URINE 0-1 (0-2/HPF); WBC,URINE 0-2 (0-5/HPF)
[2023-06-06] MEDS ORDERED: Sodium Chloride 0.9% 2.5 ML Syringe FLUSH PRN (17:02)
[2023-06-06] MEDS ORDERED: Sodium Chloride 0.9% 10 ML Syringe FLUSH PRN (17:02)
[2023-06-06] MEDS ORDERED: Ondansetron 4 MG/2 ML SDV IVPUSH STA (17:03)
[2023-06-06] MEDS ORDERED: Sodium Chloride 0.9% 1,000 ML IV STA (17:03)
[2023-06-06] MEDS ORDERED: Famotidine 20 MG/2 ML SDV IVPUSH STA (17:07)
[2023-06-06 17:30] LABS: BASOPHILS PERCENT AUTO 0.1 % (0.0-1.5); EOSINOPHILS ABSOLUTE AUTO 0.2 K/uL (0.0-0.7); EOSINOPHILS PERCENT AUTO 2.8 % (0.0-7.0); HEMATOCRIT 44.2 % (36.0-46.0); HEMOGLOBIN 15.7 g/dL (12.0-16.0); LYMPHOCYTES ABSOLUTE AUTO 1.5 K/uL (0.6-2.4); LYMPHOCYTES PERCENT AUTO 19.9 % (16.0-40.0); MEAN CORPUSCULAR HEMOGLOBIN 31.3 pg (27.0-32.0); MEAN CORPUSCULAR HGB CONC 35.5 g/dL (31.0-37.0); MONOCYTES PERCENT AUTO 12.8 % (0.0-15.0); NEUTROPHILS ABSOLUTE AUTO 4.8 K/uL (1.4-5.7); NEUTROPHILS PERCENT AUTO 64.4 % (48.0-80.0); NRBC ABSOLUTE 0 K/uL; PLATELET COUNT,PLT 267 K/uL (150-400); RED BLOOD CELL COUNT 5.02 M/uL (4.30-5.90); WHITE BLOOD CELL COUNT,WBC 7.52 K/uL (4.0-11.0)
[2023-06-06 17:55] LABS: A/G RATIO 1.1 (0.9-1.6); ALBUMIN 3.6 g/dL (3.4-5.0); BILIRUBIN TOTAL 0.9 mg/dL (0.2-1.0); CALCIUM 8.7 mg/dL (8.5-10.1); CARBON DIOXIDE,CO2 29.5 mmol/L (21.0-32.0); CREATININE 0.9 mg/dL (0.6-1.0); EST CRCL DRUG DOSING (CG) 77.49 mL/min; POTASSIUM,K 3.7 mmol/L (3.5-5.1); PROTEIN TOTAL,TP 6.8 g/dL (6.4-8.2)
[2023-06-06] MEDS ORDERED: Iopamidol 755 MG/ML 500 ML Multipack Bottle IVPUSH ONE (19:27)
[2023-06-06] MEDS ORDERED: Ondansetron 4 MG Tab.DIS PO STA (20:14)
[2023-06-06 20:24] VITALS: BP 133/76; PULSE 82
== END 2023-06-06 20:22 | disposition home or self-care (01) ==
LOC: MW.ED 15:39
DX: K52.9 Noninfective gastroenteritis and colitis, unspecified (principal); Z90.710 Acquired absence of both cervix and uterus; Z88.0 Allergy status to penicillin; Z91.018 Allergy to other foods; Z86.16 Personal history of COVID-19; Z72.0 Tobacco use
CPT/HCPCS: 36415; 74177; 80053; 81001; 81025; 83690; 85025; 86308; 96361; 96374; 96375; 99284; A9270; J2405; J3490; J7030; Q9967

== ENCOUNTER 2023-09-21 15:58 | Emergency (ER) | payer BC, MEDICAID ==
[2023-09-21] MEDS ORDERED: Sodium Chloride 0.9% 2.5 ML Syringe FLUSH PRN (16:02)
[2023-09-21] MEDS ORDERED: Sodium Chloride 0.9% 10 ML Syringe FLUSH PRN (16:02)
[2023-09-21 16:23] LABS: APPEARANCE,URINE CLEAR; BILIRUBIN,URINE NEGATIVE (NEGATIVE); COLOR,URINE YELLOW; GLUCOSE,URINE NEGATIVE (NEGATIVE); KETONES,URINE NEGATIVE (NEGATIVE); LEUKOCYTE ESTERASE,URINE NEGATIVE (NEGATIVE); NITRITE,URINE NEGATIVE (NEGATIVE); OCCULT BLOOD,URINE TRACE-INTACT (NEGATIVE); PH,URINE 5.5 (5.0-8.0); PROTEIN,URINE NEGATIVE (NEGATIVE); UROBILINOGEN,URINE 0.2 EU/dL (<2.0)
[2023-09-21 16:30] LABS: BACTERIA,URINE FEW (NEGATIVE); EPITHELIAL CELLS,URINE FEW (NONE-FEW); RBC,URINE 0-1 (0-2/HPF); WBC,URINE 0-2 (0-5/HPF)
[2023-09-21] MEDS ORDERED: Sodium Chloride 0.9% 1,000 ML IV ONE (16:32)
[2023-09-21 17:01] LABS: BASOPHILS ABSOLUTE AUTO 0.02 K/uL (0.00-0.20); BASOPHILS PERCENT AUTO 0.2 % (0.0-1.0); EOSINOPHILS ABSOLUTE AUTO 0.22 K/uL (0.00-0.45); EOSINOPHILS PERCENT AUTO 2.2 % (0.0-6.0); HEMATOCRIT 41.7 % (37.0-47.0); HEMOGLOBIN 14.9 g/dL (12.0-16.0); IMMATURE GRAN ABSOLUTE AUTO 0.03 K/uL (0.00-0.05); IMMATURE GRAN PERCENT AUTO 0.3 % (0.0-0.4); LYMPHOCYTES ABSOLUTE AUTO 2.71 K/uL (1.00-4.80); LYMPHOCYTES PERCENT AUTO 26.8 % (24.0-44.0); MEAN CORPUSCULAR HEMOGLOBIN 31.1 pg (28.0-32.0); MEAN CORPUSCULAR HGB CONC 35.7 g/dL (32.0-36.0); MEAN CORPUSCULAR VOLUME 87.1 fL (83.0-99.0); MEAN PLATELET VOLUME 9.3 fL (9.4-12.3); MONOCYTES ABSOLUTE AUTO 0.41 K/uL (0.00-0.80); MONOCYTES PERCENT AUTO 4.1 % (0.0-8.0); NEUTROPHILS ABSOLUTE AUTO 6.73 K/uL (1.80-7.70); NEUTROPHILS PERCENT AUTO 66.4 % (41.0-71.0); PLATELET COUNT,PLT 265 K/uL (150-400); RED BLOOD CELL COUNT 4.79 M/uL (4.10-5.30); WHITE BLOOD CELL COUNT,WBC 10.12 K/uL (3.9-11.3)
[2023-09-21] MEDS ORDERED: Morphine 4 MG/ML Syringe IVPUSH ONE (17:13)
[2023-09-21] MEDS ORDERED: Ondansetron 4 MG/2 ML SDV IVPUSH ONE (17:13)
[2023-09-21 17:44] LABS: A/G RATIO 1.2 (0.9-1.6); ALBUMIN 3.7 g/dL (3.4-5.0); BILIRUBIN TOTAL 0.8 mg/dL (0.2-1.0); CALCIUM 8.8 mg/dL (8.5-10.1); CARBON DIOXIDE,CO2 27.7 mmol/L (21.0-32.0); CREATININE 0.8 mg/dL (0.6-1.0); EST CRCL DRUG DOSING (CG) 87.18 mL/min; POTASSIUM,K 3.3 mmol/L (3.5-5.1); PROTEIN TOTAL,TP 6.7 g/dL (6.4-8.2)
[2023-09-21] MEDS ORDERED: Iopamidol 755 MG/ML 500 ML Multipack Bottle IVPUSH STA (18:00)
[2023-09-21] MEDS ORDERED: Ketorolac 30 MG/ML SDV IVPUSH ONE (19:07)
[2023-09-21 19:19] VITALS: BP 130/82; PULSE 76
== END 2023-09-21 19:18 | disposition home or self-care (01) ==
LOC: MW.ED 15:58
DX: R10.32 Left lower quadrant pain (principal); Z86.16 Personal history of COVID-19; Z90.710 Acquired absence of both cervix and uterus; Z88.0 Allergy status to penicillin; Z91.018 Allergy to other foods; Z88.1 Allergy status to other antibiotic agents
CPT/HCPCS: 36415; 74177; 80053; 81001; 81025; 83690; 85025; 96361; 96374; 96375; 99284; J1885; J2270; J2405; J3490; J7030; Q9967

== ENCOUNTER 2023-10-26 22:19 | Emergency (ER) | payer BC ==
[2023-10-26 23:39] LABS: CORONAVIRUS COVID-19 NAA NEGATIVE (NEGATIVE); INFLUENZA A NAA NEGATIVE (NEGATIVE); INFLUENZA B NAA NEGATIVE (NEGATIVE); RESPIRATORY SYNCYTIAL VIR NAA NEGATIVE (NEGATIVE)
[2023-10-27 00:40] VITALS: BP 140/83; PULSE 78
== END 2023-10-27 00:39 | disposition home or self-care (01) ==
LOC: MW.ED 22:19
DX: B34.9 Viral infection, unspecified (principal); Z90.710 Acquired absence of both cervix and uterus; Z86.16 Personal history of COVID-19; Z88.0 Allergy status to penicillin; Z91.018 Allergy to other foods; Z20.822 Contact with and (suspected) exposure to COVID-19
CPT/HCPCS: 0241U; 87651; 99284; 99283

== ENCOUNTER 2024-07-05 10:46 | Emergency (ER) | payer BC, OTHER ==
[2024-07-05] MEDS ORDERED: Sodium Chloride 0.9% 2.5 ML Syringe FLUSH PRN (11:06)
[2024-07-05] MEDS ORDERED: Sodium Chloride 0.9% 10 ML Syringe FLUSH PRN (11:06)
[2024-07-05 11:14] LABS: APPEARANCE,URINE CLEAR; BILIRUBIN,URINE NEGATIVE (NEGATIVE); COLOR,URINE YELLOW; GLUCOSE,URINE NEGATIVE (NEGATIVE); KETONES,URINE NEGATIVE (NEGATIVE); LEUKOCYTE ESTERASE,URINE NEGATIVE (NEGATIVE); NITRITE,URINE NEGATIVE (NEGATIVE); OCCULT BLOOD,URINE NEGATIVE (NEGATIVE); PROTEIN,URINE NEGATIVE (NEGATIVE); UROBILINOGEN,URINE 0.2 EU/dL (<2.0)
[2024-07-05 11:18] LABS: BASOPHILS ABSOLUTE AUTO 0.05 K/uL (0.00-0.20); BASOPHILS PERCENT AUTO 0.5 % (0.0-1.0); EOSINOPHILS ABSOLUTE AUTO 0.34 K/uL (0.00-0.45); EOSINOPHILS PERCENT AUTO 3.1 % (0.0-6.0); HEMATOCRIT 45.6 % (37.0-47.0); IMMATURE GRAN ABSOLUTE AUTO 0.04 K/uL (0.00-0.05); IMMATURE GRAN PERCENT AUTO 0.4 % (0.0-0.4); LYMPHOCYTES ABSOLUTE AUTO 2.37 K/uL (1.00-4.80); LYMPHOCYTES PERCENT AUTO 21.4 % (24.0-44.0); MEAN CORPUSCULAR HEMOGLOBIN 30.7 pg (28.0-32.0); MEAN CORPUSCULAR HGB CONC 35.1 g/dL (32.0-36.0); MEAN CORPUSCULAR VOLUME 87.4 fL (83.0-99.0); MEAN PLATELET VOLUME 9.1 fL (9.4-12.3); MONOCYTES ABSOLUTE AUTO 0.71 K/uL (0.00-0.80); MONOCYTES PERCENT AUTO 6.4 % (0.0-8.0); NEUTROPHILS ABSOLUTE AUTO 7.55 K/uL (1.80-7.70); NEUTROPHILS PERCENT AUTO 68.2 % (41.0-71.0); PLATELET COUNT,PLT 303 K/uL (150-400); RED BLOOD CELL COUNT 5.22 M/uL (4.10-5.30); WHITE BLOOD CELL COUNT,WBC 11.06 K/uL (3.9-11.3)
[2024-07-05] MEDS: Sodium Chloride 0.9% 1,000 ML IV ONE (11:36)
[2024-07-05] MEDS: Ketorolac 30 MG/ML SDV IVPUSH ONE (11:37)
[2024-07-05] MEDS: Ondansetron 4 MG/2 ML SDV IVPUSH ONE (11:37)
[2024-07-05 11:42] VITALS: BP 144/90; PULSE 78
[2024-07-05 11:49] LABS: A/G RATIO 1.3 (0.9-1.6); ALBUMIN 4.1 g/dL (3.4-5.0); BILIRUBIN TOTAL 0.7 mg/dL (0.2-1.0); CALCIUM 9.3 mg/dL (8.5-10.1); CARBON DIOXIDE,CO2 28.9 mmol/L (21.0-32.0); CREATININE 0.8 mg/dL (0.6-1.0); EST CRCL DRUG DOSING (CG) 86.37 mL/min; POTASSIUM,K 3.8 mmol/L (3.5-5.1); PROTEIN TOTAL,TP 7.3 g/dL (6.4-8.2)
== END 2024-07-05 13:39 | disposition home or self-care (01) ==
LOC: MW.ED 10:46
DX: R10.9 Unspecified abdominal pain (principal); F17.210 Nicotine dependence, cigarettes, uncomplicated; Z88.0 Allergy status to penicillin; Z88.8 Allergy status to other drugs, medicaments and biological substances; Z91.018 Allergy to other foods; Z79.899 Other long term (current) drug therapy; Z90.710 Acquired absence of both cervix and uterus; Z75.8 Other problems related to medical facilities and other health care
CPT/HCPCS: 36415; 74176; 80053; 81003; 81025; 83690; 85025; 96361; 96374; 96375; 99284; J1885; J2405; J7030

== ENCOUNTER 2025-01-22 17:05 | Emergency (ER) | payer BC ==
[2025-01-22 17:15] VITALS: BP 148/93; PULSE 100
[2025-01-22 19:15] LABS: BASOPHILS ABSOLUTE AUTO 0.03 K/uL (0.00-0.20); BASOPHILS PERCENT AUTO 0.3 % (0.0-1.0); EOSINOPHILS ABSOLUTE AUTO 0.42 K/uL (0.00-0.45); EOSINOPHILS PERCENT AUTO 4.1 % (0.0-6.0); HEMATOCRIT 44.9 % (37.0-47.0); HEMOGLOBIN 15.5 g/dL (12.0-16.0); IMMATURE GRAN ABSOLUTE AUTO 0.02 K/uL (0.00-0.05); IMMATURE GRAN PERCENT AUTO 0.2 % (0.0-0.4); LYMPHOCYTES ABSOLUTE AUTO 2.71 K/uL (1.00-4.80); LYMPHOCYTES PERCENT AUTO 26.8 % (24.0-44.0); MEAN CORPUSCULAR HEMOGLOBIN 30.3 pg (28.0-32.0); MEAN CORPUSCULAR HGB CONC 34.5 g/dL (32.0-36.0); MEAN CORPUSCULAR VOLUME 87.9 fL (83.0-99.0); MEAN PLATELET VOLUME 8.9 fL (9.4-12.3); MONOCYTES ABSOLUTE AUTO 0.69 K/uL (0.00-0.80); MONOCYTES PERCENT AUTO 6.8 % (0.0-8.0); NEUTROPHILS ABSOLUTE AUTO 6.26 K/uL (1.80-7.70); NEUTROPHILS PERCENT AUTO 61.8 % (41.0-71.0); PLATELET COUNT,PLT 299 K/uL (150-400); RED BLOOD CELL COUNT 5.11 M/uL (4.10-5.30); WHITE BLOOD CELL COUNT,WBC 10.13 K/uL (3.9-11.3)
[2025-01-22] MEDS: Sodium Chloride 0.9% 1,000 ML IV ONE (19:16)
[2025-01-22] MEDS: Dexamethasone 4 MG/ML SDV IVPUSH ONE (19:23)
[2025-01-22] MEDS: Prochlorperazine 10 MG/2 ML SDV IVPUSH ONE (19:27)
[2025-01-22] MEDS: diphenhydrAMINE 50 MG/ML SDV IVPUSH ONE (19:29)
[2025-01-22] MEDS: droPERidol 2.5 MG/ML SDV IVPUSH ONE (19:39)
[2025-01-22 19:41] LABS: APPEARANCE,URINE CLEAR; BILIRUBIN,URINE NEGATIVE (NEGATIVE); COLOR,URINE YELLOW; GLUCOSE,URINE NEGATIVE (NEGATIVE); KETONES,URINE NEGATIVE (NEGATIVE); LEUKOCYTE ESTERASE,URINE NEGATIVE (NEGATIVE); NITRITE,URINE NEGATIVE (NEGATIVE); OCCULT BLOOD,URINE NEGATIVE (NEGATIVE); PH,URINE 5.5 (5.0-8.0); PROTEIN,URINE NEGATIVE (NEGATIVE); UROBILINOGEN,URINE 0.2 EU/dL (<2.0)
[2025-01-22 19:46] LABS: A/G RATIO 1.3 (0.9-1.6); BILIRUBIN TOTAL 0.7 mg/dL (0.2-1.0); CALCIUM 9.5 mg/dL (8.5-10.1); CARBON DIOXIDE,CO2 29.5 mmol/L (21.0-32.0); CREATININE 0.9 mg/dL (0.6-1.0); EST CRCL DRUG DOSING (CG) 76.06 mL/min; POTASSIUM,K 3.6 mmol/L (3.5-5.1)
== END 2025-01-22 21:00 | disposition home or self-care (01) ==
LOC: MW.ED 17:05
DX: G43.909 Migraine, unspecified, not intractable, without status migrainosus (principal); R10.9 Unspecified abdominal pain; G89.29 Other chronic pain; M25.511 Pain in right shoulder; Z90.710 Acquired absence of both cervix and uterus; F17.210 Nicotine dependence, cigarettes, uncomplicated; Z79.899 Other long term (current) drug therapy; Z91.018 Allergy to other foods; Z88.0 Allergy status to penicillin; Z75.8 Other problems related to medical facilities and other health care
CPT/HCPCS: 36415; 80053; 81003; 83690; 83880; 84484; 85025; 96361; 96374; 96375; 99284; J0780; J1100; J1200; J1790; J7030; 99283